=== PATIENT | male | born 1945 | race Caucasian/White ===

== ENCOUNTER → 2018-09-22 09:43 | Outpatient (CLI) | payer MEDICARE, BC, SELFPAY ==
[2018-09-22 11:37] LABS: Add Manual Diff / Slide Review NO; Basophils Percent Auto 0.7 % (0-2); Eosinophils Percent Auto 1.3 % (2-4); Hematocrit 43.7 % (41-53); Hemoglobin 15.1 g/dL (13.5-17.5); Lymphocytes Percent Auto 27.4 % (25-40); Mean Corpuscular HGB Conc 34.6 % (30-36); Mean Corpuscular Hemoglobin 32.1 PG (26-34); Monocytes Percent Auto 7.3 % (3-14); Neutrophils Absolute Auto 4500 /uL (3000-5900); Neutrophils Percent Auto 63.3 % (50-75); Platelet Count 257 X10^3/uL (150-400); Red Cell Distribution Width 13.2 % (11.6-14.8); White Blood Cell Count 7.2 X10^3/uL (4.5-11.0)
[2018-09-22 12:17] LABS: Alanine Aminotransferase 32 IU/L (21-72); Albumin 4.5 g/dL (3.5-5.0); Albumin Globulin Ratio 1.6 (1.0-2.8); Alkaline Phosphatase 54 U/L (38-126); Aspartate Aminotransferase 29 IU/L (17-59); BUN Creatinine Ratio 17.5 (6-22); Bilirubin Total 0.3 mg/dL (0.2-1.3); Blood Urea Nitrogen 14 mg/dL (9-20); Calcium 9.8 mg/dL (8.4-10.2); Carbon Dioxide 32 mmol/L (22-32); Chloride 93 mmol/L (98-107); Cholesterol 149 mg/dL (140-199); Estimated Glomerular Filt Rate > 60.0 mL/min (>60); Globulin 2.9 g/dL (1.7-4.1); Glucose 128 mg/dL (80-110); HDL Cholesterol 54 mg/dL (40-60); HEMOLYSIS < 15 (0-50); LDL Cholesterol Calculated 53 mg/dL (<100); Potassium 4.2 mmol/L (3.4-5.1); Sodium 138 mmol/L (137-145); Total Protein 7.4 g/dL (6.3-8.2); Triglycerides 208 mg/dL (35-150)
[2018-09-22 12:35] LABS: Prostate Specific Antigen 0.345 ng/mL (0.10-4.00)
[2018-09-22 15:20] LABS: Hemoglobin A1C% w Est Avg Glu 6.6 % (4.0-6.0)
== END ==
PROVIDERS: PCP Family Medicine; Visit Provider Family Medicine
DX: E11.9 Type 2 diabetes mellitus without complications (principal); E78.2 Mixed hyperlipidemia; I25.10 Atherosclerotic heart disease of native coronary artery without angina pectoris
CPT/HCPCS: 36415; 80053; 80061; 83036; 84153; 84443; 85025

== ENCOUNTER → 2019-01-03 10:39 | Outpatient (CLI) | payer MEDICARE, BC, SELFPAY ==
[2019-01-03 11:59] LABS: Blood Urea Nitrogen 14 mg/dL (9-20); Calcium 9.9 mg/dL (8.4-10.2); Carbon Dioxide 33 mmol/L (22-32); Chloride 87 mmol/L (98-107); Cholesterol 138 mg/dL (140-199); Estimated Glomerular Filt Rate > 60.0 mL/min (>60); Glucose 111 mg/dL (80-110); HDL Cholesterol 54 mg/dL (40-60); HEMOLYSIS < 15 (0-50); LDL Cholesterol Calculated 49 mg/dL (<100); Potassium 4.8 mmol/L (3.4-5.1); Sodium 130 mmol/L (137-145); Triglycerides 175 mg/dL (35-150)
== END ==
PROVIDERS: Family Provider Family Medicine; PCP Family Medicine; Visit Provider Internal Medicine Cardiovascular Disease
DX: I25.10 Atherosclerotic heart disease of native coronary artery without angina pectoris (principal); I10 Essential (primary) hypertension; E78.5 Hyperlipidemia, unspecified
CPT/HCPCS: 36415; 80048; 80061

== ENCOUNTER → 2019-04-03 10:48 | Outpatient (CLI) | payer MEDICARE, BC, SELFPAY ==
[2019-04-03 12:08] LABS: Add Manual Diff / Slide Review NO; Basophils Absolute Auto 0 /uL (0-100); Basophils Percent Auto 0.5 % (0-2); Eosinophils Absolute Auto 100 /uL (0-450); Eosinophils Percent Auto 1.2 % (2-4); Hematocrit 40.7 % (41-53); Hemoglobin 13.9 g/dL (13.5-17.5); Lymphocytes Absolute Auto 1300 /uL (1100-4500); Lymphocytes Percent Auto 19.8 % (25-40); Mean Corpuscular HGB Conc 34.1 % (30-36); Mean Corpuscular Hemoglobin 31.9 PG (26-34); Mean Corpuscular Volume 93.5 fL (80-100); Monocytes Absolute Auto 500 /uL (0-900); Monocytes Percent Auto 6.9 % (3-14); Neutrophils Absolute Auto 4800 /uL (1500-7000); Neutrophils Percent Auto 71.6 % (50-75); Platelet Count 248 X10^3/uL (150-400); Red Blood Cell Count 4.35 X10^6/uL (4.5-5.9); Red Cell Distribution Width 12.9 % (11.6-14.8); White Blood Cell Count 6.6 X10^3/uL (4.5-11.0)
[2019-04-03 12:25] LABS: Hemoglobin A1C% w Est Avg Glu 6.3 % (4.0-6.0)
[2019-04-03 12:32] LABS: Alanine Aminotransferase 22 IU/L (21-72); Albumin 4.2 g/dL (3.5-5.0); Albumin Globulin Ratio 1.6 (1.0-2.8); Alkaline Phosphatase 53 U/L (38-126); Aspartate Aminotransferase 27 IU/L (17-59); BUN Creatinine Ratio 22.9 (6-22); Bilirubin Total 0.5 mg/dL (0.2-1.3); Blood Urea Nitrogen 16 mg/dL (9-20); Calcium 9.8 mg/dL (8.4-10.2); Carbon Dioxide 35 mmol/L (22-32); Chloride 90 mmol/L (98-107); Cholesterol 124 mg/dL (140-199); Estimated Glomerular Filt Rate > 60.0 mL/min (>60); Globulin 2.7 g/dL (1.7-4.1); Glucose 123 mg/dL (80-110); HDL Cholesterol 43 mg/dL (40-60); HEMOLYSIS < 15 (0-50); LDL Cholesterol Calculated 48 mg/dL (<100); Potassium 4.1 mmol/L (3.4-5.1); Sodium 134 mmol/L (137-145); Total Protein 6.9 g/dL (6.3-8.2); Triglycerides 165 mg/dL (35-150)
[2019-04-03 13:02] LABS: Thyroid Stimulating Hormone 1.59 uIU/mL (0.47-4.68)
[2019-04-03 13:03] LABS: Prostate Specific Antigen Scrn 0.341 ng/mL (0.1-4.0)
== END ==
PROVIDERS: Family Provider Family Medicine; PCP Family Medicine; Visit Provider Family Medicine
DX: E11.9 Type 2 diabetes mellitus without complications (principal); E78.2 Mixed hyperlipidemia; I12.9 Hypertensive chronic kidney disease with stage 1 through stage 4 chronic kidney disease, or unspecified chronic kidney disease; I25.10 Atherosclerotic heart disease of native coronary artery without angina pectoris; N13.8 Other obstructive and reflux uropathy; N40.1 Benign prostatic hyperplasia with lower urinary tract symptoms; Z68.37 Body mass index [BMI] 37.0-37.9, adult; Z12.5 Encounter for screening for malignant neoplasm of prostate
CPT/HCPCS: 36415; 80053; 80061; 83036; 84443; 85025; G0103

== ENCOUNTER → 2019-04-06 10:40 | Outpatient (CLI) | payer MEDICARE, BC, SELFPAY ==
[2019-04-06 12:38] LABS: Microalbumin Urine Random 3.5 mg/dL (0-1.6)
[2019-04-06 12:39] LABS: Creatinine Urine Random 71.3 mg/dL
== END ==
PROVIDERS: PCP Family Medicine; Visit Provider Family Medicine
DX: E11.9 Type 2 diabetes mellitus without complications (principal); E78.2 Mixed hyperlipidemia; I10 Essential (primary) hypertension; I25.10 Atherosclerotic heart disease of native coronary artery without angina pectoris; N13.8 Other obstructive and reflux uropathy; N40.1 Benign prostatic hyperplasia with lower urinary tract symptoms; Z68.37 Body mass index [BMI] 37.0-37.9, adult
CPT/HCPCS: 82043; 82570

== ENCOUNTER → 2019-05-08 14:28 | Outpatient (CLI) | payer MEDICARE, BC, SELFPAY ==
--- NOTE | 2019-05-08 14:32 | DI.RAD.S_ITS ---
PROCEDURE: XR CHEST 2V INDICATIONS: sob TECHNIQUE: 2 views of the chest were acquired. COMPARISON: [facility], CHEST 2 VIEW, 01/15/2014, 13:27. [facility], CHEST 2 VIEW, 11/11/2011, 11:08. FINDINGS: Surgical changes and devices: Prior CABG, previously present sternotomy wires.. Lungs and pleura: Lungs are clear. No pleural effusions or pneumothorax. Mediastinum: Mediastinal contours are normal. Heart size is normal. Bones and chest wall: No suspicious bony abnormalities. Soft tissues appear unremarkable. IMPRESSION: Reduced inspiratory volume, prior CABG, source of shortness of breath is not found. Dictated by: Omero Higginbotham M.D. on 05/08/2019 at 15:20 Approved by: Omero Higginbotham M.D. on 05/08/2019 at 15:20
[2019-05-08 15:46] LABS: Add Manual Diff / Slide Review NO; Basophils Absolute Auto 0 /uL (0-100); Basophils Percent Auto 0.4 % (0-2); Eosinophils Absolute Auto 100 /uL (0-450); Eosinophils Percent Auto 0.9 % (2-4); Hematocrit 38.9 % (41-53); Hemoglobin 13.3 g/dL (13.5-17.5); Lymphocytes Absolute Auto 1500 /uL (1100-4500); Lymphocytes Percent Auto 20.6 % (25-40); Mean Corpuscular HGB Conc 34.2 % (30-36); Mean Corpuscular Hemoglobin 31.9 PG (26-34); Mean Corpuscular Volume 93.4 fL (80-100); Monocytes Absolute Auto 600 /uL (0-900); Monocytes Percent Auto 7.9 % (3-14); Neutrophils Absolute Auto 5100 /uL (1500-7000); Neutrophils Percent Auto 70.2 % (50-75); Platelet Count 257 X10^3/uL (150-400); Red Blood Cell Count 4.17 X10^6/uL (4.5-5.9); White Blood Cell Count 7.2 X10^3/uL (4.5-11.0)
[2019-05-08 16:09] LABS: B Type Natriuretic Peptide < 100 (<100)
[2019-05-08 17:41] LABS: BUN Creatinine Ratio 28.3 (6-22); Blood Urea Nitrogen 17 mg/dL (9-20); Calcium 9.7 mg/dL (8.4-10.2); Carbon Dioxide 35 mmol/L (22-32); Chloride 91 mmol/L (98-107); Estimated Glomerular Filt Rate > 60.0 mL/min (>60); Glucose 119 mg/dL (80-110); HEMOLYSIS < 15 (0-50); Magnesium 1.5 mg/dL (1.6-2.3); Potassium 4.5 mmol/L (3.4-5.1); Sodium 133 mmol/L (137-145)
== END ==
PROVIDERS: PCP Family Medicine; Visit Provider Family Medicine
DX: I25.10 Atherosclerotic heart disease of native coronary artery without angina pectoris (principal); R06.02 Shortness of breath; E11.9 Type 2 diabetes mellitus without complications; E78.5 Hyperlipidemia, unspecified; Z95.1 Presence of aortocoronary bypass graft
CPT/HCPCS: 36415; 71046; 80048; 83036; 83735; 83880; 85025

== ENCOUNTER → 2019-06-14 14:26 | Outpatient (CLI) | payer MEDICARE, BC, SELFPAY ==
--- NOTE | 2019-06-14 14:29 | DI.ECHO.S_ITS ---
[facility] +---------+ : : [address] : : [address] : : : : [place], : : : : [place] [id number] : : : : Phone: [phone] + [facility]-[id number] Echocardiogram Report + + :Name: MAGDIEL WILKS Study Date: 06/14/2019 Height: 70 in : :[facility] Weight: 238 lb : : Gender: Male BSA: 2.2 m2 : :: 1945 Age: 73 yrs BP: 120/68 mmHg: :Reason For Study: DYSPNEA : :Ordering Physician: Dr. Montoya : :[place]on Performed By: Lela Bradley : :Referring: TEJINDER OSEGUERA : + + Interpretation Summary The left ventricle is normal in size. The left ventricular ejection fraction is normal. The ejection fraction is estimated to be 60-65%. There are no obvious focal wall motion abnormalities noted but poor endocardial definition reduces the sensitivity for the detection of such. Diastolic parameters suggest a relaxation abnormality of the left ventricle, consistent with probable normal filling pressures. The right ventricle is not well visualized. The right ventricle grossly appears normal in size with probable normal systolic function. Pulmonary artery pressures cannot be estimated because of the lack of a measurable TR jet velocity. The left atrial size is normal. There is no significant valvular heart disease. The aortic root is mildly dilated. Procedure: A two-dimensional transthoracic echocardiogram with color flow and Doppler was performed. The study quality was technically difficult. Couldnt get IV attempted x2. Pt sitting up right . The patient was in normal sinus rhythm during the exam. Left Ventricle: The left ventricle is normal in size. There is normal left ventricular wall thickness. The left ventricular ejection fraction is normal. The ejection fraction is estimated to be 60-65%. There are no obvious focal wall motion abnormalities noted but poor endocardial definition reduces the sensitivity for the detection of such. Diastolic parameters suggest a relaxation abnormality of the left ventricle, consistent with probable normal filling pressures. Right Ventricle: The right ventricle is not well visualized. The right ventricle grossly appears normal in size with probable normal systolic function. Atria: The left atrial size is normal. Right atrium not well visualized secondary to technical limitations. There is no Doppler evidence for an interatrial shunt. Mitral Valve: The mitral valve leaflets appear mildly thickened, but open well. There is mild mitral annular calcification. There is trace mitral regurgitation. Aortic Valve: The aortic valve is normal in structure and function. No aortic regurgitation is present. Tricuspid Valve: There is a trace or physiologic amount of tricuspid regurgitation. Pulmonary artery pressures cannot be estimated because of the lack of a measurable TR jet velocity. Pulmonic Valve: The pulmonic valve is not well visualized. There is no significant valvular heart disease. Great Vessels: The aortic root is mildly dilated. The ascending aorta is normal in size. The aortic arch could not be visualized. The pulmonary is not well visualized. The inferior vena cava was not visualized. Pericardium/ Pleura There is no pericardial effusion. There is no pleural effusion. MMode/2D Measurements & Calculations LVIDd: 5.0 cm LVOT diam: 2.5 cm LVIDs: 3.3 cm Ao root diam: 4.1 cm IVSd: 0.93 cm asc Aorta Diam: 3.3 cm LVPWd: 0.89 cm LV hunt. diameter/BSA (cm/m^2): 2.2 LV sys. diameter/BSA (cm/m^2): 1.5 FS: 34.0 % LA A2 area: 19.2 cm2 TAPSE: 1.3 cm LA A4 area: 23.2 cm2 LA length (vol): 5.9 cm LA vol: 64.5 ml LA vol index: 28.7 ml/m2 Doppler Measurements & Calculations Ao V2 max: 105.6 cm/sec LVOT Max Shay: 61.0 cm/sec Ao V2 mean: 76.5 cm/sec LV V1 max P.5 mmHg Ao V2 VTI: 23.3 cm LV V1 VTI: 14.2 cm Ao max P.5 mmHg Ao mean P.6 mmHg JULY(I,D): 3.0 cm2 MV E max shay: 68.4 cm/sec JULY(V,D): 2.8 cm2 MV A max shay: 86.3 cm/sec JULY indexed to BSA (cm^2/m^2): 1.3 MV E/A: 0.79 sev ratio: 0.61 Med Peak E' Shay: 5.7 cm/sec E/E' med: 12.1 Lat Peak E' Shay: 7.7 cm/sec E/E' lat: 8.9 E/e' average: 10.5 MV P1/2t: 84.1 msec PA V2 max: 72.8 cm/sec MVA(P1/2t): 2.6 cm2 PA V2 mean: 47.7 cm/sec PA mean P.0 mmHg PA Accel Time: 0.06 sec SV(LVOT): 69.8 ml Reading Physician:04:53 PM
== END ==
PROVIDERS: PCP Family Medicine; Visit Provider Family Medicine
DX: R06.00 Dyspnea, unspecified (principal)
CPT/HCPCS: 93306

== ENCOUNTER → 2019-07-10 15:38 | Outpatient (CLI) | payer MEDICARE, BC, SELFPAY ==
--- NOTE | 2019-07-10 15:41 | DI.RAD.S_ITS ---
PROCEDURE: XR CERVICAL SPINE 2V OR 3V INDICATIONS: pain TECHNIQUE: 4 view(s) of the cervical spine were acquired. COMPARISON: None. FINDINGS: Bones: No fractures or dislocations to the T1 level. The lateral masses of C1 appear intact on the odontoid view. No suspicious bony lesions. Degenerative disc disease along the cervical spine is moderately severe the patient is flexed forward, to the degree that normal odontoid visualization on the frontal projection was not possible. Degenerative disc disease is moderately severe to severe at C5-6 and C6-7. Soft tissues: No prevertebral soft tissue swelling. IMPRESSION: The degenerative changes are considered near severe from C5-6 through the cervical thoracic junction. There is a relatively fixed flexion deformity along the cervical spine associated with disc degeneration, most prominent at and below the C4-5 level. The degenerative changes and flexion deformity disallows clear visualization of the base of the dens and depending on the clinical status followup by a dedicated CT or MR cervical scan in may be warranted. Dictated by: Omero Higginbotham M.D. on 07/10/2019 at 16:38 Approved by: Omero Higginbotham M.D. on 07/10/2019 at 16:40
== END ==
PROVIDERS: PCP Family Medicine; Visit Provider Family Medicine
DX: M54.2 Cervicalgia (principal); Z98.890 Other specified postprocedural states
CPT/HCPCS: 72040

== ENCOUNTER → 2019-07-15 09:23 | Outpatient (CLI) | payer MEDICARE, BC, SELFPAY ==
--- NOTE | 2019-07-15 09:27 | DI.MRI.S_ITS ---
PROCEDURE: MR CERVICAL SPINE WO CON INDICATIONS: cervical pain TECHNIQUE: Noncontrast sagittal T1 spin echo and T2 fast spin echo, sagittal STIR, foraminal oblique sagittal T2 fast spin echo, and axial gradient echo or T2 fast spin echo through the cervical spine. COMPARISON: None. FINDINGS: Image quality: Degraded by motion artifact and body habitus. Alignment and Curvature: There is normal bony alignment. Bone Marrow: Marrow demonstrates normal overall signal. Spinal Cord: Visualized spinal cord has normal size and signal. No cerebellar tonsillar herniation. Paraspinous Soft Tissues: No paravertebral masses. Prevertebral soft tissues are normal in thickness. C2-C3: Mild diffuse disc bulge. Bilateral facet hypertrophy. Mild canal stenosis. Mild bilateral foraminal stenosis. C3-C4: Congenital canal stenosis. Mild diffuse disc bulge. Bilateral facet hypertrophy. Moderate to severe canal stenosis. Possible mild cord flattening. Moderate to severe right and moderate left foraminal stenosis. C4-C5: Congenital canal stenosis. Moderate disc desiccation. Mild diffuse disc bulge. Bilateral facet hypertrophy. Bilateral facet and uncovertebral hypertrophy. Moderate to severe canal stenosis. Possible mild cord flattening. Moderate bilateral foraminal stenosis. C5-C6: Congenital canal stenosis. Moderate disc height loss and desiccation. Moderate diffuse disc bulge with superimposed right posterolateral protrusion. Moderate facet and uncovertebral hypertrophy bilaterally. Severe canal stenosis. Moderate cord flattening. Removal severe bilateral foraminal stenosis with bilateral C6 nerve root compression. C6-C7: Congenital canal stenosis. Moderate disc height loss and desiccation. Moderate diffuse disc bulge. Mild facet and uncovertebral hypertrophy bilaterally. Moderate to severe canal stenosis. Possible mild cord flattening. Mild bilateral foraminal stenosis. C7-T1: Congenital canal stenosis. Moderate disc desiccation. Mild diffuse disc bulge. Mild facet and uncovertebral hypertrophy bilaterally. Mild canal stenosis. Mild bilateral foraminal stenosis. IMPRESSION: 1. Limited examination demonstrating diffuse congenital canal stenosis, with superimposed disc and facet disease, as well as uncovertebral hypertrophy. 2. Multilevel canal stenoses, worst at C5-C6, where there is moderate cord flattening. Possible cord flattening is also seen at C3-C4, C4-C5, and C6-C7. 3. Multilevel foraminal stenoses, worst at C5-C6, where there is associated bilateral C6 nerve root compression. Recommend correlation with clinical symptoms to ascertain relevance of this finding. Dictated by: Feliciano Rogers M.D. on 07/18/2019 at 16:02 Approved by: Feliciano Rogers M.D. on 07/18/2019 at 16:09
== END ==
PROVIDERS: PCP Family Medicine; Visit Provider Family Medicine
DX: M54.2 Cervicalgia (principal); M48.02 Spinal stenosis, cervical region
CPT/HCPCS: 72141

== ENCOUNTER → 2019-07-24 12:32 | Outpatient (CLI) | payer MEDICARE, BC, SELFPAY ==
[2019-07-24 14:49] LABS: Blood Urea Nitrogen 21 mg/dL (9-20); Carbon Dioxide 32 mmol/L (22-32); Chloride 87 mmol/L (98-107); Estimated Glomerular Filt Rate > 60.0 mL/min (>60); Glucose 154 mg/dL (80-110); HEMOLYSIS < 15 (0-50); Potassium 4.5 mmol/L (3.4-5.1); Sodium 132 mmol/L (137-145)
[2019-07-24 16:51] LABS: Hemoglobin A1C% w Est Avg Glu 5.8 % (4.0-6.0)
== END ==
PROVIDERS: PCP Family Medicine; Visit Provider Family Medicine
DX: E11.9 Type 2 diabetes mellitus without complications (principal)
CPT/HCPCS: 36415; 80048; 83036

== ENCOUNTER → 2019-08-21 15:18 | Outpatient (CLI) | payer MEDICARE, BC, SELFPAY ==
[2019-08-21 16:21] LABS: Hemoglobin A1C% w Est Avg Glu 5.8 % (4.0-6.0)
[2019-08-21 16:40] LABS: BUN Creatinine Ratio 23.8 (6-22); Blood Urea Nitrogen 19 mg/dL (9-20); Estimated Glomerular Filt Rate > 60.0 mL/min (>60)
== END ==
PROVIDERS: PCP Family Medicine; Visit Provider Family Medicine
DX: E11.9 Type 2 diabetes mellitus without complications (principal)
CPT/HCPCS: 36415; 82565; 83036; 84520

== ENCOUNTER → 2019-08-24 12:49 | Outpatient (CLI) | payer MEDICARE, BC, SELFPAY ==
--- NOTE | 2019-08-24 | DI.CT.S_ITS ---
PROCEDURE: CT CERVICAL SPINE WO CON INDICATIONS: Other cervical disc displacement TECHNIQUE: Noncontrast 3 mm thick sections acquired from the skull base to the T4 level. Sagittal and coronal reformats were then constructed. For radiation dose reduction, the following was used: automated exposure control, adjustment of mA and/or kV according to patient size. COMPARISON: [facility], MR, MR CERVICAL SPINE WO CON, 07/15/2019, 9:37. [facility], CR, XR CERVICAL SPINE 2V OR 3V, 07/10/2019, 15:43. FINDINGS: Image quality: This examination is limited by involuntary motion artifact. Bones: No fractures or dislocations are seen to the limits of this study with motion artifact. Visualized superior ribs are intact. There is moderate to severe disc space narrowing seen at C5-C6 and C6-C7. Endplate irregularity and sclerosis are seen at these levels, with posterior directed endplate osteophytes. Relatively prominent uncovertebral joint degenerative change can be seen at C5-C6. Soft tissues: Prevertebral soft tissues are normal in thickness. No paravertebral hematomas. No apical pneumothoraces. IMPRESSION: Limited examination demonstrating degenerative changes, which are most prominent inferiorly. Dictated by: Ced Talbot M.D. on 08/24/2019 at 14:11 Approved by: Ced Talbot M.D. on 08/24/2019 at 14:17
== END ==
PROVIDERS: Family Provider Family Medicine; PCP Family Medicine; Visit Provider Orthopaedic Surgery
DX: M50.20 Other cervical disc displacement, unspecified cervical region (principal); M47.812 Spondylosis without myelopathy or radiculopathy, cervical region
CPT/HCPCS: 72125

== ENCOUNTER → 2019-10-09 11:41 | Outpatient (CLI) | payer MEDICARE, BC, SELFPAY | PROVIDERS: Family Provider Family Medicine; PCP Family Medicine; Visit Provider Family Medicine | DX: S31.809A Unspecified open wound of unspecified buttock, initial encounter (principal) | CPT/HCPCS: 87070; 87075; 87077; 87147; 87205 ==

== ENCOUNTER 2019-11-23 10:03 | Inpatient (IN) | payer MEDICARE, BC, SELFPAY ==
[2019-11-14 11:35] VITALS: BMI 29.8
[2019-11-23] VITALS (14 sets, daily range): BP systolic 132–167; BP diastolic 72–85; PULSE 11–117; RESP 10–24; TEMP 36.1–36.6; O2SAT 94–98; BMI 28.3
--- NOTE | 2019-11-23 | DI.RAD.S_ITS ---
PROCEDURE: XR CERVICAL SPINE 2V OR 3V INDICATIONS: C5-6, C6-7 ANTERIOR DISC. TECHNIQUE: 2 view(s) of the cervical spine were acquired. COMPARISON: [facility], , XR CERVICAL SPINE 2V OR 3V, 07/10/2019, 15:43. FINDINGS: 2 intraoperative fluoroscopy images demonstrate discectomy and anterior fusion at C5-C6 and C6-C7. IMPRESSION: Discectomy and anterior fusion at C5-C6 and C6-C7. Dictated by: David Lisa M.D. on 11/23/2019 at 20:50 Approved by: David Lisa M.D. on 11/23/2019 at 20:51
[2019-11-23] MEDS: ACETAMINOPHEN 325 MG TABLET 975 MG PO (10:54)
[2019-11-23] MEDS: CELECOXIB 200 MG CAPSULE 400 MG PO ×2 (10:55→18:13)
[2019-11-23] MEDS: GABAPENTIN 300 MG CAPSULE PO (10:55)
[2019-11-23] MEDS: LACTATED RINGERS 1,000 ML 42 ML IV ×2 (10:56→16:45)
--- NOTE | 2019-11-23 13:44 | SUR.PREOP ---
pt transferred to hospital bed for comfort, pt and informed of delay in surgery.
--- NOTE | 2019-11-23 14:10 | PM.PREOP ---
Pre-operative Note Interval Note History & Physical reviewed/Exam performed by Physician: Yes Changes to H&P: No
[2019-11-23] MEDS: CEFAZOLIN 2 GM/100 ML FROZ.PIGGY IV ×2 (14:45→22:22)
[2019-11-23] MEDS: THROMBIN (RECOMBINANT) 5,000 UNIT VIAL 5000 UNIT TOP (15:26)
[2019-11-23] MEDS: SODIUM CHLORIDE 0.9% 1,000 ML, GENTAMICIN 80 MG IRR (15:27)
[2019-11-23] MEDS: BUPIVACAINE 0.25% W/ EPI (PF) 10 ML VIAL 60 ML INJ (15:27)
--- NOTE | 2019-11-23 15:29 | SUR.OPER ---
Supine, head on gel donut. Arms padded with gel pads, tucked at sides, towel roll under shoulders. Safety belt at thigh. Legs uncrossed.
--- NOTE | 2019-11-23 16:22 | PM.OP.1 ---
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 They had failed conservative management and requested operative intervention. Risks and benefits of surgery were discussed and appropriate consents were obtained. Surgeon: Kehinde Caruso Business Intelligence Engineer: Nick Gtz Anesthesia Type: General Operative Notes Findings: None Closure Type: primary Specimen(s): none sent Prosthetic devices, grafts, tissues, transplants, or devices: Cathy RHETT-C Estimated Blood Loss (mL): 10 Blood products transfused: none Procedure in detail: Patient was brought to the operating room and intubated on the table. A time-out was performed. Preoperative antibiotics were given. The neck was prepped and draped in the standard sterile fashion. Using a skin fold, we made a 3 cm oblique incision on the left side. We used Bovie to go through the platysma and then did a standard anterolateral blunt dissection down to the precervical fascia. Fascia was nicked and elevated up. A marker was placed and x-ray was taken for localization. We then subperiosteally elevated up the longus colli muscles. Self-retaining retractors were placed. Avenue pins were placed. We then brought in the microscope. A scalpel used to perform an annulotomy. We then used a combination of pituitaries and curettes and Kerrison to perform a complete anterior diskectomy at C6-7. We used the bur to take down the posterior osteophytes. We took down the PLL and used Kerrison to remove any posterior disc material and osteophytes. At the end we could from the nerve hook cephalad caudally and out the foramen and everything was opened. A small stab incision was made over the left anterior iliac crest. A Jamshidi needle was advanced into the pelvis and 2 mL of bone marrow was aspirated. We then used the trials. We then packed a 14 x 17 x6 mm RHETT-C cage with Primagen bone graft and the iliac crest harvest. The cage was placed under fluoroscopic guidance. We then placed our two locking plates. This completed the ACDF at C6-7. The self-retaining retractors and Avenue pins were moved up to the next level. We then performed an annulotomy, complete diskectomy, and took down the PLL at C5-6. Kerrisons were used to remove the posterior osteophytes. In the end we could sweep the nerve hook easily back and forth with out any further pressure. We then trialed and placed another 14 x 17 x 6 mm RHETT-C cage with bone graft at C5-6. We placed our 2 locking plates. This completed the ACDF at C5-6. The retractors removed and final x-rays were taken. The wound was irrigated. There was no bleeding. The carotid was beating nicely. The platysma was closed. The superficial was closed. The skin was closed. A sterile dressing was placed. They were then extubated and brought to recovery room with no complications. Complications: none Post-operative Condition: stable Disposition: PACU Plan for aftercare: Inpatient. Up with PT. Probable discharge tomorrow.
[2019-11-23] MEDS: OXYCODONE IR 5 MG TABLET 10 MG PO (17:57)
[2019-11-23] MEDS: DEXAMETHASONE 4 MG/ML VIAL IV (18:12)
[2019-11-23] MEDS: HYDROMORPHONE 1 MG INJ 0.5 MG IV ×2 (18:12→20:09)
[2019-11-23] MEDS: ACETAMINOPHEN 325 MG TABLET 650 MG PO (18:14)
[2019-11-23] MEDS: LACTATED RINGERS 1,000 ML 125 ML IV (18:14)
[2019-11-23] MEDS: FLUTICASONE/SALMETEROL 250/50 60 PUFF DISKUS INH (19:52)
[2019-11-23] MEDS: ATORVASTATIN 20 MG TABLET PO (20:35)
[2019-11-23] MEDS: HYDRALAZINE 25 MG TABLET PO (20:36)
[2019-11-23] MEDS: SENNOSIDES 8.6 MG TABLET 17.2 MG PO (20:36)
[2019-11-23] MEDS: LOSARTAN 50 MG TABLET PO (20:36)
[2019-11-23] MEDS: DOCUSATE 100 MG CAPSULE PO (20:37)
[2019-11-23] MEDS: METFORMIN HCL 500 MG TABLET 1000 MG PO (20:37)
[2019-11-23] MEDS: carBAMazepine XR 100 MG TAB 200 MG PO (20:38)
[2019-11-23] MEDS: carvediloL 25 MG TABLET PO (20:43)
--- NOTE | 2019-11-23 22:51 | PC.NURSE ---
Admission/Evening Shift Note- Patient arrived to room via bed from pacu. Oriented patient to bed and bed controls, room,lights, menu, phone, and call harding/tv remote. Admit questions done, home medications reviewed, and physical assessment competed. PRN pain medications given as ordered per patient request. Patient tolerated with no s/s of ASE noted. safety measures in place. bed alarm activated. call harding and phone within reach. will continue to monitor.
[2019-11-24] VITALS: BP 156/77; PULSE 115; RESP 18; TEMP 36.3; O2SAT 96
[2019-11-24] MEDS: ACETAMINOPHEN 325 MG TABLET 650 MG PO ×2 (00:13→08:20)
[2019-11-24] MEDS: HYDROMORPHONE 1 MG INJ 0.5 MG IV (00:14)
[2019-11-24] MEDS: LACTATED RINGERS 1,000 ML 125 ML IV (00:15)
[2019-11-24] MEDS: DEXAMETHASONE 4 MG/ML VIAL IV ×3 (00:17→10:53)
[2019-11-24 05:55] VITALS: BP 161/90; PULSE 114; RESP 16; TEMP 36.4; O2SAT 95
--- NOTE | 2019-11-24 06:24 | PC.NURSE ---
Pt POD 1 post surgical repair of cervical stenosis C5-7 with cage. Anterior neck dressing intact, drainage present but not saturated. Borders marked at MN, drainage did not exceed borders. Pt wearing soft collar. Following activity precautions. Pain 7/10x1, admin IV dilaudid at 0100, tylenol given at that time. Pt had no further complaints of acute pain. NTG patch will be placed at 0700. Denies chest pain during night, denies SOB at rest. Currently sitting in chair with chair alarm on. Supportive at bedside
[2019-11-24] MEDS: CEFAZOLIN 2 GM/100 ML FROZ.PIGGY IV (06:42)
--- NOTE | 2019-11-24 06:49 | P.PN_ITS ---
Subjective Subjective Date Patient Seen: 11/24/19 Time Patient Seen: 06:49 Interval history: Doing well, minimal pain after his meds. Swallowing better sitting up (not really changed since preop, but not worse). Able to swallow pills and water without difficulty. Exam Vital Signs (past 8 hours): - 11/24/19 00:00 11/24/19 05:55 Temperature 97.4 F L 97.5 F L Pulse Rate 115 H 114 H Respiratory Rate 18 16 Blood Pressure 156/77 H 161/90 H Pulse Oximetry 96 95 Oxygen Delivery Method Nasal Cannula Oxygen Flow Rate 0 Const Orientation: alert and oriented x3 Back/Spine/Pelvis Other: mod dry drainage, mild swelling on left side of neck. 5/5 motor BUE except 4/5 B int/online producer Assessment & Plan Post-op Postoperative Procedures: Procedures Operation Date: 11/23/19 12:15 Actual Procedures Side Surgeon p C5-6 & C6-7 anterior discectomy and instru fusion w/bone graft Kehinde Caruso MD He has some swelling, but no sign of bleeding (only dry on dressing). He still has difficulty with swallowing and loud breathing (unchanged since preop). He feels good and wants to go home. Up with PT, then plan for discharge. I will send him home with prednisone as well for the swelling. Quality VTE Deep Vein Thrombosis/Pulmonary Embolism Present on Admission: No
[2019-11-24 08:00] VITALS: BP 154/82; PULSE 109; RESP 20; TEMP 36.7; O2SAT 96
[2019-11-24] MEDS: carBAMazepine XR 100 MG TAB 200 MG PO (08:18)
[2019-11-24] MEDS: AMITRIPTYLINE 25 MG TABLET 50 MG PO (08:18)
[2019-11-24] MEDS: LOSARTAN 50 MG TABLET PO (08:19)
[2019-11-24] MEDS: ASPIRIN EC 81 MG TABLET PO (08:19)
[2019-11-24] MEDS: DOXAZOSIN 4 MG TABLET 8 MG PO (08:19)
[2019-11-24] MEDS: glipiZIDE 5 MG TABLET PO (08:19)
[2019-11-24] MEDS: CELECOXIB 200 MG CAPSULE PO (08:19)
[2019-11-24] MEDS: FINASTERIDE 5 MG TABLET PO (08:19)
[2019-11-24] MEDS: ASCORBIC ACID 500 MG TABLET 1000 MG PO (08:20)
[2019-11-24] MEDS: AMLODIPINE 5 MG TABLET PO (08:20)
[2019-11-24] MEDS: DOCUSATE 100 MG CAPSULE PO (08:20)
[2019-11-24] MEDS: hydroCHLOROthiazide 25 MG TABLET PO (08:20)
[2019-11-24] MEDS: CITALOPRAM 20 MG TABLET PO (08:20)
[2019-11-24] MEDS: LORATADINE 10 MG TABLET PO (08:20)
[2019-11-24] MEDS: METFORMIN HCL 500 MG TABLET 1000 MG PO (08:20)
[2019-11-24] MEDS: NITROGLYCERIN 0.4 MG PATCH TOP (08:21)
[2019-11-24] MEDS: carvediloL 25 MG TABLET PO (08:24)
[2019-11-24] MEDS: HYDRALAZINE 25 MG TABLET PO (08:25)
[2019-11-24] MEDS: FLUTICASONE/SALMETEROL 250/50 60 PUFF DISKUS INH (08:40)
[2019-11-24 08:41] VITALS: PULSE 76; RESP 12; O2SAT 96
--- NOTE | 2019-11-24 10:02 | OT.IP.TRT ---
Current Diagnoses Disease of spinal cord, unspecified (11/23/19) Other cervical disc displacement, unspecified cervical region (11/23/19) Surgery Performed Operation Date: 11/23/19 12:15 Actual Procedures p C5-6 & C6-7 anterior discectomy and instru fusion w/bone graft - Kehinde Caruso MD Occupational Therapy Treatment Note M3 OT- IP Subjective and Pain Start: 11/24/19 10:21 Freq: Status: Active Protocol: Document 11/24/19: [facility] (Rec: 11/24/19 10:31 [facility] [id number]) OT- Subjective Occupational Therapy Visit Type Type Treatment Note Visit Start Time 10:02 Visit Stop Time 10:11 Total Visit Minutes 9 Occupational Therapy Visit Comments Patient Comments Pt already saw PT, present in the room and feels capable to assist pt for all needs. Able to go over soft collar management and ADl needs. Therefore just OT treatment completed. Patient/Caregiver Goals To go home. OT Pain Assessment Pain When Pain Assessed At Rest Pain Present Pain Present Denied Pain M4 OT- IP ADL's Start: 11/24/19 10:21 Freq: Status: Active Protocol: Document 11/24/19: [facility] (Rec: 11/24/19 10:31 [facility] [id number]) OT [id number] Comments OT Self-Feeding Comments Pt able to bring cup to his mouth and noted wet voice afterwards and coughing. Notified FREELANCE RECRUITER, FREELANCE RECRUITER to come and screen the pt. Gave pt's swallowing information after ACDF sx encourage softer foods , smaller bites, and sit upright. OT ADL-Dressing Comments OT Dressing Comments Pt's assist with LB dressing needs especially for compression stocking. M6 OT- IP Functional Cognition Start: 11/24/19 10:21 Freq: Status: Active Protocol: Document 11/24/19 10:22 [facility] (Rec: 11/24/19 10:31 [facility] [id number]) Cognitive Factors Limiting Selfcare Function Cognitive Ability Level of Alertness Alert Patient Orientation Name Attention Span Ability Capable of Focused Attention, Capable of Sustained Attention Ability to Follow Commands Able to Follow One Step Commands with Increased Time, Able to Follow One Step Commands with Repetition Memory Description Short Term Impaired Cognitive Comments Cognitive Assessment Comments Pt looks to his to answer his questions and talk for him during OT treatment. Pt is insistent on trying to go home and forgetting that he has to wait to get the IV out until just prior to leaving. Per pt has a structure routine that they follow at home. M9 OT- IP Assessment and Plan Start: 11/24/19 10:21 Freq: Status: Active Protocol: Document 11/24/19 10:22 [facility] (Rec: 11/24/19 10:31 [facility] [id number]) OT Summary Assessment and Plan Potential Rehabilitation Potential Good Analytic Complexity at Evaluation Low Summary OT Impairments Functional Cognition,Self- Feeding,Dressing,Toileting, Bathing Progress Towards Goals Progressing Toward Goals,Slow Progress due to Cognition Assessment Summary Pt low complexity and has a supportive to assist for all needs at home. Pt noted wet voice after drinking water , notified FREELANCE RECRUITER so able to do a swallow screen. Pt's has good understanding to be able to assist pt for all needs of Adl and functional mobility needs. Goals Patient/Caregiver Education Goal Caregiver Independent Assisting Patient Days to Meet Goals 1 Frequency of Treatment Frequency Of Treatment Once a Day Treatment Plan OT Treatment Plan ADL Training,Functional Cognition Training,Functional Mobility,Patient/Family Education,Discharge Planning Other Treatment Recommendations and Next If still here shower. Treatment Focus Discharge Recommendations OT Discharge Recommendations Home with 07/06 Assist
--- NOTE | 2019-11-24 10:22 | PC.NURSE ---
Patient is alert and oriented x3, dressing to anterior neck with some shadow drainage. Soft collar is in place for comfort. Pt is a sba when ambulating, he is steady. Took all morning meds and pt is sitting up in his chair. He has a raspy voice but states that he was having some problems with this before surgery. Patient also has various bruising to his arms and a skin tear. He will be discharging home around 1130 today after his last dose of decadron.
--- NOTE | 2019-11-24 10:50 | ST.IPSCREEN ---
Swallow screen performed per ACDF protocol. Patient experiencing wet vocal quality following sips of water, requiring 2-3 swallows to fully clear. Discussed recommendations for soft diet, small sips of liquids at this time advancing as tolerated. Patient also noted to have difficulty coordinating phonation with respiration, only able to get one word out per breath and making his speech difficult to understand. His reports this was going on prior to the surgery and has seemed to improve slightly since surgery. Recommend patient notify his doctor at time of follow-up appointment if dysphagia or dysphonia persist.
--- NOTE | 2019-11-24 10:58 | PT.IIE ---
Current Diagnoses Disease of spinal cord, unspecified (11/23/19) Other cervical disc displacement, unspecified cervical region (11/23/19) Surgery Performed Operation Date: 11/23/19 12:15 Actual Procedures p C5-6 & C6-7 anterior discectomy and instru fusion w/bone graft - Kehinde Caruso MD Surgical History (Last Updated 11/14/19 @ 12:19 by Phoebe Chacko RN) Anesthesia (Resolved) Hx of arthroscopy of left knee (Acute) S/P CABG x 2 (Acute 06/29/02) Status post cholecystectomy (~1984) Status post hemorrhoidectomy (~1994) Status post laminectomy (~2015) Medical History (Last Updated 11/14/19 @ 12:49 by Phoebe Chacko RN) Carpal tunnel syndrome (Chronic ~1982) Chicken pox (Resolved) Chronic back pain (Chronic ~2014) Coronary artery disease (Chronic ~2001) Diabetes mellitus (Chronic ~1997) Gout (Chronic) Hearing loss (Chronic) Hemorrhoid (Chronic) Kidney stones (Chronic) Peripheral vascular disease (Chronic ~1989) Precancerous skin lesion (Chronic) Rheumatoid arthritis (Chronic) Shoulder pain (Chronic) Sleep apnea (Chronic ~1989) Tinnitus (Chronic) Vertigo (Chronic ~2011) Physical Therapy Inpatient Evaluation/Re-Eval M1 PT/OT-IP Prior Functional Status Start: 11/24/19 10:21 Freq: NEEDED Status: Active Protocol: Document 11/24/19 09:15 (Rec: 11/24/19 10:58 [id number]) Medical Review Prior Functional Status Medical History Reviewed Yes Communication AKIACHAK at baseline. Spouse stated pt had difficulty find words, along with lower voice and hoarse sound prior to sx. He also has short term memory deficits. Mobility and Gait Pt uses unilateral hiking stick for mobility at all time . Spouse noted pt has decreased balance since last year but did not have a fall. Pt also tends to lean forward while sitting and ambulating due to chronic [employer]IDE [employer] WORK and LBP. She also stated pt started to have a L foot drop since his back sx from 2016 but able to amb independently. Activities of Daily Living and IADL's Independent for ADLs and IADLs with a hiking stick. Able to drive. Social History Household Members spouse Living Arrangements House Number of Floors (Floors) One Floor Number of Stairs To Enter/Railing? 1 GERARDO from garage and use door on the left and hiking stick for support Home Environment Standard Height Toilet,Walk in Shower,Built-In Shower Seat Home Equipment Front Wheel Walker,Straight Cane,Hand Held Shower,Grab Bars In Shower Employment Status Retired Additional Social History Comment Pt lives with his spouse and a dog in [facility] with good supportive neighbours that could assist as needed. Pt had a back sx in Dec 26, 2015. Spouse stated pt also sleeps in his recliner d/t difficulty in breathing at supine position. M2 PT-IP Current Condition Start: 11/24/19 08:13 Freq: NEEDED Status: Active Protocol: Document 11/24/19 09:15 HH (Rec: 11/24/19 10:58 [email or web address]) Physical Therapy Current Condition Current Condition Evaluation Date 11/24/19 Treatment Diagnosis C5-7 ACDF, difficulty in walking Onset Date 11/23/19 Precautions Cervical Spine Precautions Soft Collar for Comfort,No Heavy Lifting,Log Roll Weight Bearing Status Weight Bearing Status Full Weight Bearing M3 PT-IP Subjective Start: 11/24/19 08:13 Freq: NEEDED Status: Active Protocol: Document 11/24/19 09:15 HH (Rec: 11/24/19 10:58 [email or web address]) Subjective Physical Therapy Visit Type Type Initial Evaluation Visit Start Time 09:15 Visit Stop Time 09:45 Total Visit Minutes 30 Notes pt's spouse attended session. He has a raspy voice but states that he was having some problems with this before surgery. Patient also has various bruising to his arms and a skin tear Number of DEBT AND BUDGET COUNSELOR Visits 0 Physical Therapy Visit Comments Patient Comments I want to go home. Patient Goals TO return home with spouse. Therapy Pain Assessment Pain When Pain Assessed During Exercise Pain Present Pain Present Pain Reported Location Anterior Neck Intensity 3 Scale Used Numeric (1 - 10) Description Aching,Dull Pain Management Techniques Timing of Activity with Medications M4 PT-IP Mobility and Gait Start: 11/24/19 08:13 Freq: NEEDED Status: Active Protocol: Document 11/24/19 09:15 HH (Rec: 11/24/19 10:58 [email or web address]) PT-Transfer Assessment Sit to and From Stand Sit to and from Stand Contact Guard Assistance,Use of Upper Extremities Equipment Transfer Assistive Device Gait Belt,Front Wheeled Walker Orthotic/Prosthetic Devices or Brace: Yes Transfers Transfer Destination Bed,Chair,Toilet Transfer Technique amb with FWW Transfer Ability Level of Assist Standby Assistance,Contact Guard Assistance,Use of Upper Extremities Comments Mobility Comments Pt was up in chair upon assessment. BP at 157/84 . Noticeable brusies and swelling at his anterior neck. Pt stated minimal discomfort at this point and agreeabel to mobilize with PT and spouse. Pt completed sit to stand with CGA provided by spouse. He then amb with PT and FWW. Pt did get easily distracted while ambulating in the hallway and needed reminders for his precautions. He amb half the AC and was able to return to bathroom for toileting. He was able to stand unsupported to void and without FWW for 5 feet and used FWW to amb up to sink counter for cervical collar management. He then returned to chair safely. call ligth within reach and chair alarm activated. BP at 157/84 HR 107 Gait Assessment Gait Gait Assistance Required: Standby Assistance Distance (Feet) 200 Able to Maintain Weight Bearing Status Yes During Gait Assistive Devices Assistive Device Gait Belt,Front Wheeled Walker Orthotic/Prosthetic Devices or Brace: No Gait Deviations General Gait Pattern Decreased Stride Length, Decreased Feet Clearance Factors Limiting Gait Function Factors Limiting Gait Function Decreased Activity Tolerance, Decreased Strength,Poor Balance,Respiratory Distress Comments Gait Comments see mobility comments. Pt did get SOB during amb but spouse stated this is normal to him. He also amb with a mild steppage gait on L side due to L foot drop, but no signs of LOB during amb. 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 Pt led with RLE for both asecned and descend PT-Balance Assessment Sitting Balance and Reactions Static Sitting Balance Ability Normal Dynamic Sitting Balance Ability Normal Standing Balance and Reactions Static Standing Balance Ability Normal Dynamic Standing Balance Ability Normal Device Used FWW M5 PT-IP Objective Assessments Start: 11/24/19 08:13 Freq: NEEDED Status: Active Protocol: Document 11/24/19 09:15 HH (Rec: 11/24/19 10:58 [email or web address]) Orientation Orientation/Cognition Level of Alertness Alert Orientation Name,Age,Birthday,Month,Date, Year Language Function Ability Word Finding Difficulties,Hard of Hearing Safety Awareness Understands Safety Issues Memory Description Short Term Impaired Comments pt has difficulty remembering postop precautions. Gross Range of Motion Upper Extremity ROM Assessment Within Functional Limits Lower Extremity ROM Assessment Left Impaired Impairments mild foot drop on L during amb . Strength Upper Extremity Strength Assessment Within Functional Limits Shoulder 4/5 Elbow 4/5 Wrist 4/5 Lower Extremity Strength Assessment Left Impaired Hip 4/5 Knee 4/5 Ankle 3/5 Comments Strength Comments L foot = 3/5 Coordination Assessment Gross Coordination Gross Coordination WNL Sensation Assessment Sensation Gross Sensation WNL Light Touch Intact Proprioception (Position) Intact Muscle Tone Muscle Tone WNL Yes M6 PT-IP Treatment Start: 11/24/19 08:13 Freq: NEEDED Status: Active Protocol: Document 11/24/19 09:15 (Rec: 11/24/19 10:58 [email or web address]) Physical Therapy Treatment Education Education Provided Precautions,Weight Bearing Status,Post-Op Packet,Safety Brace Education Donning,Freeborn,Patient, Caregiver M7 PT-IP Assessment and Plan Start: 11/24/19 08:13 Freq: NEEDED Status: Active Protocol: Document 11/24/19 09:15 (Rec: 11/24/19 10:58 [email or web address]) PT Summary Assessment and Plan Potential Rehabilitation Potential Excellent Status of Condition at Evaluation Stable Summary Impairments Pain,ROM,Strength,Balance, Coordination,Tone,Cognition, Bed Mobility,Transfers,Gait, Activity Tolerance Progress Towards Goals Safe For Discharge Assessment Summary Pt is a low complexity 74yo male s/p POD 2 C5-C7 ACDF. Upon assessment, pt has a raspy voice but states that he was having some problems with this before surgery but seems to be better as she stated. Patient also has various bruising to his arms and a skin tear. Pt overall did relatively well with mobility with FWW SBA/ CGA from spouse. Able to clear stair as well .Although pt has difficulty remembering postop precautions but Pt has a very supportive and physically stronge spouse to assist as needed at home. Pt will be safe to d/c home at this point. Frequency of Treatment Frequency Of Treatment Discharge Recommendations To Nursing Amount of Assist Needed Standby Assistance Discharge Recommendations PT Discharge Recommendations Home with Assistance
--- NOTE | 2019-11-24 11:14 | CM.IDA ---
Discharge Planning/Care Management CM Discharge Assessment Start: 11/24/19 11:08 Freq: Status: Active Protocol: Document 11/24/19 11:10 MICHEL (Rec: 11/24/19 11:14 MICHEL [id number]) Discharge Planning Assessment Assigned Tilt Tray Driver MARLEY Dotson DPOA/Assigned Designee Name Eliane Lobo, spouse Contact Information [phone] cell, home Advance Directives? Yes Advance Directives on File Yes History Provided By Patient,Medical Record Prior Living Arrangements House Household Members spouse Type of transporation used prior to Drives own vehicle admit Independent with ADL's Yes Is patient alert and oriented? Yes Barriers to Discharge No Comment Pt is POD#1 from spinal surgery w/ Dr Caruso. Pt has already been cleared for DC home today w/spouse to assist PCP: Dr Slater Payer: MCR/ZAK Saw pt and his family as RN was reviewing DC instructions. Therapy team has cleared pt for return home and pt eager to do so, no barriers identified. Home today w/ family to assist via family pov MARLEY Mcarthur Discharge Plan Home Transportation Arrangement Family Referrals Initiated None needed
== END 2019-11-24 11:30 | disposition home or self-care (01) | DRG 473 ==
PROVIDERS: Admitting Provider Orthopaedic Surgery; Family Provider Family Medicine; PCP Family Medicine; Visit Provider Orthopaedic Surgery
PROC: 0RG20A0 Fusion of 2 or more Cervical Vertebral Joints with Interbody Fusion Device, Anterior Approach, Anterior Column, Open Approach (ICD-10-PCS; principal; 2019-11-23 12:15)
DX: M50.022 Cervical disc disorder at C5-C6 level with myelopathy (principal); E11.42 Type 2 diabetes mellitus with diabetic polyneuropathy; I10 Essential (primary) hypertension; E78.5 Hyperlipidemia, unspecified; F32.9 Major depressive disorder, single episode, unspecified; J44.9 Chronic obstructive pulmonary disease, unspecified; F17.210 Nicotine dependence, cigarettes, uncomplicated; I25.10 Atherosclerotic heart disease of native coronary artery without angina pectoris; G47.33 Obstructive sleep apnea (adult) (pediatric); N40.0 Benign prostatic hyperplasia without lower urinary tract symptoms; M21.372 Foot drop, left foot; Z79.84 Long term (current) use of oral hypoglycemic drugs; Z95.1 Presence of aortocoronary bypass graft
CPT/HCPCS: 72040; 76000; 82962; 94640; 97116; 97161; 97535; C1776; J0330; J0690; J1100; J1170; J2405; J2704

== ENCOUNTER 2019-12-30 13:08 | Inpatient (IN) | payer MEDICARE, BC, SELFPAY ==
[2019-11-23 17:32] VITALS: BMI 28.3
[2019-12-30] VITALS (8 sets, daily range): BP systolic 111–208; BP diastolic 59–92; PULSE 78–90; RESP 18–24; TEMP 36.3–36.5; O2SAT 91–100; BMI 27.3
--- NOTE | 2019-12-30 13:20 | DI.RAD.S_ITS ---
PROCEDURE: XR ACUTE ABDOMEN SERIES INDICATIONS: No BM since last Wednesday. TECHNIQUE: One view chest and two views of the abdomen were acquired. COMPARISON: None. FINDINGS: Surgical changes and devices: Post CABG changes are seen. Right upper quadrant postoperative clips are seen. Chest: Lungs are clear. Heart size is normal. No pleural effusions. No pneumoperitoneum. Abdomen: Gaseous prominence of colon and small bowel can be seen. The small bowel loops measure up to 3.6 cm and the transverse colon measures up to 6 cm. On the upright examination, no pathologic air-fluid levels are seen. No suspicious calcifications. Visualized solid organ contours appear normal. Bones: No suspicious bony lesions. Age-appropriate bony degenerative changes are seen. IMPRESSION: These imaging findings are most compatible with ileus. If it would be helpful for clinical management decision making, please consider a dedicated CT of the abdomen and pelvis. If oral contrast is given, please consider a long dwell time of 3-4 hours before scanning. Postoperative and degenerative changes are seen. Dictated by: Ced Talbot M.D. on 12/30/2019 at 13:09 Approved by: Ced Talbot M.D. on 12/30/2019 at 13:10
--- NOTE | 2019-12-30 14:27 | ED.ABDPAIN ---
HPI - Abdominal Pain <PEDRITO Turner - Last Filed: 12/30/19 21:21> General Chief Complaint: Abdominal Pain Stated Complaint: no bowel movement for 5 days Time Seen by Provider: 12/30/19 14:02 Source: patient and family Mode of arrival: Wheelchair Limitations: other (hearing difficulty) History of Present Illness HPI narrative: This is a 74-year-old gentleman, former smoker, who presents to ED with spouse with chief complain of no bowel movement for for a week. Patient has a known chronic constipation and takes Dulcolax 3 tabs daily and had stool incontinence last week Wednesday which was the last bowel movement. Patient has a bowel movement every 3-4 days and takes to collects 3 tabs daily. Patient had a surgery by Dr. Simms on 11/23/2019 C5-7 ACDF with cages and is not currently on narcotic pain medication but takes Tylenol as needed. Significant other reports decreased solid food intake last 6 months especially after recent surgery. Spouse denies vomiting, fever, abdominal discomfort at home. Patient uses a walker/stick for ambulation. Patient was evaluated at Dr. Slater's office on 12/19/2019 and spouse expressed concerns at the time which she was told not likely. Patient was instructed by Dr. Slater to go into the hospital if patient does not have bowel movement by today. Related Data Home Medications Medication Instructions Recorded Confirmed acetaminophen [Tylenol Extra 1,000 mg PO BID #0 05/01/13 12/31/19 Strength] fenofibrate nanocrystallized 145 mg PO QNOON #0 05/01/13 12/31/19 [Tricor] indomethacin 50 mg PO PRN PRN #0 05/01/13 12/31/19 nitroglycerin [Nitrostat] 0.4 mg SUBLINGUAL PRN PRN #0 05/01/13 12/31/19 losartan 50 mg tablet 50 mg PO BID tab 04/06/19 12/31/19 loratadine 10 mg tablet 10 mg PO DAILY 09/18/19 12/31/19 aspirin 81 mg PO DAILY 11/14/19 12/31/19 nitroglycerin 1 patch TRANSDERMAL DAILY 11/14/19 12/31/19 finasteride 5 mg PO BEDTIME 12/31/19 12/31/19 potassium chloride 10 meq PO DAILY 12/31/19 12/31/19 Previous Rx's Medication Instructions Recorded Disabled Parking Permit / . #1 03/26/17 amlodipine [Norvasc] 5 mg PO QDAY #90 tab 09/28/17 atorvastatin [Lipitor] 20 mg PO HS #90 tab 09/28/17 metformin 500 mg tablet 1,000 mg PO BID #360 tab 06/09/18 fluticasone 250 mcg-salmeterol 50 1 inhalation INHALATION BID #60 04/06/19 mcg/dose blistr powdr for dose inhalation hydrochlorothiazide 25 mg tablet 25 mg PO DAILY #90 tab 07/24/19 carbamazepine 200 mg 200 mg PO BID #180 cap 08/21/19 capsule,extended release [id number] blood sugar diagnostic See Rx Instructions .ROUTE 08/31/19 .COMPLEX #100 each citalopram 20 mg tablet 20 mg PO DAILY #60 tab 09/18/19 carvedilol 25 mg tablet 25 mg PO BID #180 tab 09/25/19 amitriptyline 50 mg tablet 50 mg PO DAILY #90 tab 10/09/19 Allergies Allergy/AdvReac Type Severity Reaction Status Date / Time adhesive tape [ADHESIVE TAPE] Allergy Intermediate itching/rash-with Verified 12/18/19 10:14 prolonged use tapentadol [TAPENTADOL] Allergy Mild RASH Verified 12/18/19 10:14 Review of Systems <PEDRITO Turner - Last Filed: 12/30/19 21:21> Review of Systems Narrative: General: Denies fever, chills,(+) fatigue, malaise, sweats. HEENT: Denies sinus pain, ear pain, sore throat, difficulty swallowing, dizziness. (+) decreased hearing. Respiratory: Denies dyspnea, cough, wheezing, hemoptysis, sputum. Cardiovascular: Denies chest pain, palpitations, orthopnea, (+) chronic bilateral lower leg edema. Gastrointestinal: See HPI : Denies dysuria, (+) choronic nocturnal urinary frequency, incontinence, hematuria, urinary retention. Musculoskeletal: Denies weakness, joint pain or bony pain. Skin: Denies rash, skin lesions, or other. Neurologic: Denies weakness, headache, numbness, change in speech, confusion, seizures, incoordination. Psychiatric: No concerning psychosocial issues, (+) history of depression. 12-point review of systems is negative except for those stated above. Patient History <PEDRITO Turner - Last Filed: 12/30/19 21:21> Medical History Carpal tunnel syndrome (Chronic ~1982) Chicken pox (Resolved) Chronic back pain (Chronic ~2014) Coronary artery disease (Chronic ~2001) Diabetes mellitus (Chronic ~1997) Gout (Chronic) Hearing loss (Chronic) Hemorrhoid (Chronic) Kidney stones (Chronic) Peripheral vascular disease (Chronic ~1989) Precancerous skin lesion (Chronic) Rheumatoid arthritis (Chronic) Shoulder pain (Chronic) Sleep apnea (Chronic ~1989) Tinnitus (Chronic) Vertigo (Chronic ~2011) Surgical History Anesthesia (Resolved) H/O cervical spine surgery (Acute) Hx of arthroscopy of left knee (Acute) 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 Head: Normal cephalic, atraumatic. No scalp or temporal tenderness, palpable mass or rash. EYES: Pupils are equal, round, and reactive to light and accommodation. Extraocular muscles are intact bilaterally. There is no subconjunctival hemorrhage, exudate and sclera non-icteric. ENT: Bilateral auditory canals and tympanic membranes clear. Hearing decreased bilateral ears. Nose without bleeding, purulent discharge or deviation. Facial sinuses nontender to palpate. Mucous membrane moist, no mucosal lesion. Throat without erythema, tonsillar hypertrophy or exudate. Uvula in midline, airway patent. Neck: Trachea in midline. Surgical incision site on left lower neck without signs of infection. No JVD, non-tender without lymphadenopathy. No masses or thyroid megaly. Supple, non-tender and no meningeal signs. CARDIAC: Normal regular rate and rhythm without murmurs, gallops, or rubs. No chest wall tenderness with ecchymosis in anterior chest after C-spine surgery. Bilateral lower extremity edema and has compression stockings. No cyanosis or pallor. Capillary refill is less than 2 seconds. RESPIRATORY: Lungs are clear to auscultate bilaterally. No cough, wheezes, rales, or rhonchi. No stridor, respiratory distress, increase work of breathing, or accessary muscle used. ABD: Abdomen soft, nontender and non-distended. No guarding or rebound tenderness to palpate. Bowel sounds are normal in all 4 quadrants. There is no palpable masses or organomegaly. EXT: Full painless ROM of all extremities. SKIN: Warm, dry, normal color for patient. No erythema, lesions or rash over other visible areas except anterior chest wall. BACK: Nontender without deformity or crepitance. No flank tenderness. NEUROLOGICAL: Alert and oriented to place, time and person. Sensation and motor function intact bilaterally. No facial droops, dysphasia. Initial Vital Signs Initial Vital Signs: Vital Signs Temperature 97.7 F 12/30/19 13:15 Pulse Rate 82 12/30/19 13:15 Respiratory Rate 12/30/19 13:15 Blood Pressure 111/59 L 12/30/19 13:15 Pulse Oximetry 91 12/30/19 13:15 <Kannan Scott MD - Last Filed: 12/31/19 09:03> Initial Vital Signs Initial Vital Signs: Vital Signs Temperature 97.7 F 12/30/19 13:15 Pulse Rate 82 12/30/19 13:15 Respiratory Rate 20 12/30/19 13:15 Blood Pressure 111/59 L 12/30/19 13:15 Pulse Oximetry 91 12/30/19 13:15 <Justin Waller MD - Last Filed: 12/31/19 23:18> Initial Vital Signs Initial Vital Signs: Vital Signs Temperature 97.7 F 12/30/19 13:15 Pulse Rate 82 12/30/19 13:15 Respiratory Rate 20 12/30/19 13:15 Blood Pressure 111/59 L 12/30/19 13:15 Pulse Oximetry 91 12/30/19 13:15 Scores <[facility] - Last Filed: 12/30/19 21:21> GCS Flaco coma scale eye opening: Spontaneous Flaco coma scale verbal response: Orientated [place] coma scale motor response: Obey commands Flaco coma scale total score: 15 Course <[facility] - Last Filed: 12/30/19 21:21> Orders Ordered: Acetaminophen (Tylenol) 650 mg PO Q6HR PRN PRN Reason: Fever/Mild Pain (1-3) Amitriptyline HCl (Elavil) 50 mg PO 1400 [facility] Last Admin: 12/31/19 17:41 Dose: 50 mg Documented by: MARIOLA Amlodipine Besylate (Norvasc) 5 mg PO DAILY [facility] Last Admin: 12/31/19 09:43 Dose: Not Given Documented by: HERMINIA Aspirin (Aspirin Ec) 81 mg PO DAILY [facility] Last Admin: 12/31/19 09:42 Dose: Not Given Documented by: HERMINIA Atorvastatin Calcium (Lipitor) 20 mg PO BEDTIME [facility] Last Admin: 12/31/19 21:20 Dose: Not Given Documented by: Admin: 12/31/19 21:19 Dose: 20 mg Documented by: MARIOLA Carbamazepine (Tegretol Xr) 200 mg PO BID [facility] Last Admin: 12/31/19 21:18 Dose: 200 mg Documented by: Admin: 12/31/19 09:40 Dose: Not Given Documented by: Admin: 12/30/19 23:11 Dose: Not Given Documented by: MARITZA Carvedilol (Coreg) 25 mg PO BID [facility] Last Admin: 12/31/19 21:19 Dose: 25 mg Documented by: Admin: 12/31/19 09:42 Dose: Not Given Documented by: HERMINIA Citalopram Hydrobromide (Celexa) 20 mg PO DAILY [facility] Last Admin: 12/31/19 09:44 Dose: Not Given Documented by: HERMINIA Dextrose (D50w) 25 gm IV PRN PRN PRN Reason: Hypoglycemia Enoxaparin Sodium (Lovenox) 40 mg SUBCUT DAILY [facility] Last Admin: 12/31/19 09:18 Dose: 40 mg Documented by: HERMINIA Fenofibrate (Triglide) 160 mg PO QNOON [facility] Finasteride (Proscar) 5 mg PO DAILY [facility] Last Admin: 12/31/19 09:40 Dose: Not Given Documented by: HERMINIA Sodium Chloride (Normal Saline 0.9%) 1,000 mls @ 150 mls/hr IV CONT [facility] Last Infusion: 12/31/19 06:57 Dose: 125 mls/hr Documented by: Admin: 12/30/19 22:50 Dose: 125 mls/hr Documented by: MARITZA Insulin Aspart (Novolog Flexpen) 0 unit SUBCUT ACHS [facility]; Protocol Last Admin: 12/31/19 22:09 Dose: Not Given Documented by: Admin: 12/31/19 17:42 Dose: Not Given Documented by: Admin: 12/31/19 12:12 Dose: 1 unit Documented by: HERMINIA Cosigned by: ARTUR Losartan Potassium (Cozaar) 50 mg PO BID [facility] Last Admin: 12/31/19 21:19 Dose: 50 mg Documented by: Admin: 12/31/19 09:43 Dose: Not Given Documented by: HERMINIA Magnesium Hydroxide (Milk Of Magnesia) 30 ml PO DAILY PRN PRN Reason: Constipation Metformin HCl (Glucophage) 1,000 mg PO BIDWM [facility] Last Admin: 12/31/19 17:44 Dose: 1,000 mg Documented by: Admin: 12/31/19 09:42 Dose: Not Given Documented by: HERMINIA Naloxone HCl (Narcan) 0.2 mg IV Q2MIN PRN PRN Reason: Opiate Reversal Nitroglycerin (Nitro-Dur) 0.4 mg TOP DAILY [facility] Last Admin: 12/31/19 12:12 Dose: 0.4 mg Documented by: HERMINIA Nitroglycerin (Nitrostat) 0.4 mg SL [id number] PRN PRN Reason: Chest Pain Nitroglycerin (Nitro-Dur) 0.4 mg TOP 2100 [facility] Last Admin: 12/31/19 21:20 Dose: Not Given Documented by: MARIOLA Oxycodone/Acetaminophen (Percocet 5/325) 1 tab PO Q4HR PRN PRN Reason: Pain, Moderate (4-6) Last Admin: 12/31/19 06:54 Dose: 1 tab Documented by: DBROYLE Sennosides (Senna) 17.2 mg PO BEDTIME [facility] Last Admin: 12/31/19 21:21 Dose: Not Given Documented by: Admin: 12/30/19 23:45 Dose: Not Given Documented by: NISH Discontinued Medications Acetaminophen (Tylenol) 650 mg PO QID PRN PRN Reason: Pain, Mild (1-3) Fenofibrate (Tricor) 160 mg PO QNOON [facility] Last Admin: 12/31/19 14:23 Dose: Not Given Documented by: HERMINIA Hydrochlorothiazide (Hydrochlorothiazide) 25 mg PO DAILY [facility] Sodium Chloride (Normal Saline 0.9%) 1,000 mls @ 150 mls/hr IV CONT [facility] Last Infusion: 12/31/19 06:56 Dose: 125 mls/hr Documented by: Admin: 12/31/19 06:55 Dose: 150 mls/hr Documented by: Infusion: 12/30/19 21:01 Dose: 0 mls/hr Documented by: Admin: 12/30/19 18:09 Dose: 999 mls/hr Documented by: HARDEEP Sodium Chloride (Hypertonic Saline 3%) 100 mls @ 100 mls/hr IV NOW ONE Stop: 12/31/19 10:29 Last Infusion: 12/31/19 11:42 Dose: 100 mls/hr Documented by: Admin: 12/31/19 10:16 Dose: 100 mls/hr Documented by: HERMINIA Sodium Chloride (Hypertonic Saline 3%) 500 mls @ 100 mls/hr IV BOLUS ONE Stop: 12/31/19 14:19 Last Admin: 12/31/19 15:05 Dose: Not Given Documented by: HERMINIA Sodium Chloride (Hypertonic Saline 3%) 100 mls @ 100 mls/hr IV NOW ONE Stop: 12/31/19 18:30 Last Admin: 12/31/19 17:42 Dose: 100 mls/hr Documented by: MARIOLA Magnesium Citrate (Magnesium Citrate) 300 ml PO NOW ONE Stop: 12/30/19 15:46 Last Admin: 12/30/19 21:03 Dose: Not Given Documented by: SUSY Mineral Oil (Mineral Oil Enema) 1 each NV NOW ONE Stop: 12/30/19 15:46 Last Admin: 12/30/19 21:03 Dose: Not Given Documented by: SUSY Vital Signs Vital signs: Vital Signs - 8 hr 12/30/19 14:02 12/30/19 16:00 12/30/19 18:00 Pulse Rate 78 83 86 Respiratory Rate 20 18 Blood Pressure [Right Arm] 153/70 H 182/92 H 194/82 H Pulse Oximetry 100 98 95 12/30/19 18:30 12/30/19 19:00 Pulse Rate 88 86 Respiratory Rate 18 20 Blood Pressure [Right Arm] 208/73 H 182/86 H Pulse Oximetry 92 94 <Kannan Scott MD - Last Filed: 12/31/19 09:03> Orders Ordered: Acetaminophen (Tylenol) 650 mg PO Q6HR PRN PRN Reason: Fever/Mild Pain (1-3) Amitriptyline HCl (Elavil) 50 mg PO 1400 [facility] Last Admin: 12/31/19 17:41 Dose: 50 mg Documented by: MARIOLA Amlodipine Besylate (Norvasc) 5 mg PO DAILY [facility] Last Admin: 12/31/19 09:43 Dose: Not Given Documented by: HERMINIA Aspirin (Aspirin Ec) 81 mg PO DAILY [facility] Last Admin: 12/31/19 09:42 Dose: Not Given Documented by: HERMINIA Atorvastatin Calcium (Lipitor) 20 mg PO BEDTIME [facility] Last Admin: 12/31/19 21:20 Dose: Not Given Documented by: Admin: 12/31/19 21:19 Dose: 20 mg Documented by: MARIOLA Carbamazepine (Tegretol Xr) 200 mg PO BID [facility] Last Admin: 12/31/19 21:18 Dose: 200 mg Documented by: Admin: 12/31/19 09:40 Dose: Not Given Documented by: Admin: 12/30/19 23:11 Dose: Not Given Documented by: MARITZA Carvedilol (Coreg) 25 mg PO BID [facility] Last Admin: 12/31/19 21:19 Dose: 25 mg Documented by: Admin: 12/31/19 09:42 Dose: Not Given Documented by: HERMINIA Citalopram Hydrobromide (Celexa) 20 mg PO DAILY [facility] Last Admin: 12/31/19 09:44 Dose: Not Given Documented by: HERMINIA Dextrose (D50w) 25 gm IV PRN PRN PRN Reason: Hypoglycemia Enoxaparin Sodium (Lovenox) 40 mg SUBCUT DAILY [facility] Last Admin: 12/31/19 09:18 Dose: 40 mg Documented by: HERMINIA Fenofibrate (Triglide) 160 mg PO QNOON [facility] Finasteride (Proscar) 5 mg PO DAILY [facility] Last Admin: 12/31/19 09:40 Dose: Not Given Documented by: HERMINIA Sodium Chloride (Normal Saline 0.9%) 1,000 mls @ 150 mls/hr IV CONT [facility] Last Infusion: 12/31/19 06:57 Dose: 125 mls/hr Documented by: Admin: 12/30/19 22:50 Dose: 125 mls/hr Documented by: MARITZA Insulin Aspart (Novolog Flexpen) 0 unit SUBCUT ACHS [facility]; Protocol Last Admin: 12/31/19 22:09 Dose: Not Given Documented by: Admin: 12/31/19 17:42 Dose: Not Given Documented by: Admin: 12/31/19 12:12 Dose: 1 unit Documented by: HERMINIA Cosigned by: ARTUR Losartan Potassium (Cozaar) 50 mg PO BID [facility] Last Admin: 12/31/19 21:19 Dose: 50 mg Documented by: Admin: 12/31/19 09:43 Dose: Not Given Documented by: HERMINIA Magnesium Hydroxide (Milk Of Magnesia) 30 ml PO DAILY PRN PRN Reason: Constipation Metformin HCl (Glucophage) 1,000 mg PO BIDWM [facility] Last Admin: 12/31/19 17:44 Dose: 1,000 mg Documented by: Admin: 12/31/19 09:42 Dose: Not Given Documented by: HERMINIA Naloxone HCl (Narcan) 0.2 mg IV Q2MIN PRN PRN Reason: Opiate Reversal Nitroglycerin (Nitro-Dur) 0.4 mg TOP DAILY [facility] Last Admin: 12/31/19 12:12 Dose: 0.4 mg Documented by: HERMINIA Nitroglycerin (Nitrostat) 0.4 mg SL [id number] PRN PRN Reason: Chest Pain Nitroglycerin (Nitro-Dur) 0.4 mg TOP 2100 [facility] Last Admin: 12/31/19 21:20 Dose: Not Given Documented by: ZACKBSON Oxycodone/Acetaminophen (Percocet 5/325) 1 tab PO Q4HR PRN PRN Reason: Pain, Moderate (4-6) Last Admin: 12/31/19 06:54 Dose: 1 tab Documented by: JAY Sennosides (Senna) 17.2 mg PO BEDTIME [facility] Last Admin: 12/31/19 21:21 Dose: Not Given Documented by: Admin: 12/30/19 23:45 Dose: Not Given Documented by: NISH Discontinued Medications Acetaminophen (Tylenol) 650 mg PO QID PRN PRN Reason: Pain, Mild (1-3) Fenofibrate (Tricor) 160 mg PO QNOON [facility] Last Admin: 12/31/19 14:23 Dose: Not Given Documented by: HERMINIA Hydrochlorothiazide (Hydrochlorothiazide) 25 mg PO DAILY [facility] Sodium Chloride (Normal Saline 0.9%) 1,000 mls @ 150 mls/hr IV CONT [facility]ATH[facility] Last Infusion: 12/31/19 06:56 Dose: 125 mls/hr Documented by: Admin: 12/31/19 06:55 Dose: 150 mls/hr Documented by: Infusion: 12/30/19 21:01 Dose: 0 mls/hr Documented by: Admin: 12/30/19 18:09 Dose: 999 mls/hr Documented by: HARDEEP Sodium Chloride (Hypertonic Saline 3%) 100 mls @ 100 mls/hr IV NOW ONE Stop: 12/31/19 10:29 Last Infusion: 12/31/19 11:42 Dose: 100 mls/hr Documented by: Admin: 12/31/19 10:16 Dose: 100 mls/hr Documented by: HERMINIA Sodium Chloride (Hypertonic Saline 3%) 500 mls @ 100 mls/hr IV BOLUS ONE Stop: 12/31/19 14:19 Last Admin: 12/31/19 15:05 Dose: Not Given Documented by: HERMINIA Sodium Chloride (Hypertonic Saline 3%) 100 mls @ 100 mls/hr IV NOW ONE Stop: 12/31/19 18:30 Last Admin: 12/31/19 17:42 Dose: 100 mls/hr Documented by: MARIOLA Magnesium Citrate (Magnesium Citrate) 300 ml PO NOW ONE Stop: 12/30/19 15:46 Last Admin: 12/30/19 21:03 Dose: Not Given Documented by: SUSY Mineral Oil (Mineral Oil Enema) 1 each NV NOW ONE Stop: 12/30/19 15:46 Last Admin: 12/30/19 21:03 Dose: Not Given Documented by: SUSY Vital Signs Vital signs: Vital Signs - 8 hr 12/30/19 14:02 12/30/19 16:00 12/30/19 18:00 Pulse Rate 78 83 86 Respiratory Rate 20 18 Blood Pressure [Right Arm] 153/70 H 182/92 H 194/82 H Pulse Oximetry 100 98 95 12/30/19 18:30 12/30/19 19:00 Pulse Rate 88 86 Respiratory Rate 18 20 Blood Pressure [Right Arm] 208/73 H 182/86 H Pulse Oximetry 92 94 <Justin Waller MD - Last Filed: 12/31/19 23:18> Orders Ordered: Acetaminophen (Tylenol) 650 mg PO Q6HR PRN PRN Reason: Fever/Mild Pain (1-3) Amitriptyline HCl (Elavil) 50 mg PO 1400 [facility] Last Admin: 12/31/19 17:41 Dose: 50 mg Documented by: MARIOLA Amlodipine Besylate (Norvasc) 5 mg PO DAILY [facility] Last Admin: 12/31/19 09:43 Dose: Not Given Documented by: HERMINIA Aspirin (Aspirin Ec) 81 mg PO DAILY [facility] Last Admin: 12/31/19 09:42 Dose: Not Given Documented by: HERMINIA Atorvastatin Calcium (Lipitor) 20 mg PO BEDTIME [facility] Last Admin: 12/31/19 21:20 Dose: Not Given Documented by: Admin: 12/31/19 21:19 Dose: 20 mg Documented by: MARIOLA Carbamazepine (Tegretol Xr) 200 mg PO BID [facility] Last Admin: 12/31/19 21:18 Dose: 200 mg Documented by: Admin: 12/31/19 09:40 Dose: Not Given Documented by: Admin: 12/30/19 23:11 Dose: Not Given Documented by: MARITZA Carvedilol (Coreg) 25 mg PO BID [facility] Last Admin: 12/31/19 21:19 Dose: 25 mg Documented by: Admin: 12/31/19 09:42 Dose: Not Given Documented by: HERMINIA Citalopram Hydrobromide (Celexa) 20 mg PO DAILY [facility] Last Admin: 12/31/19 09:44 Dose: Not Given Documented by: HERMINIA Dextrose (D50w) 25 gm IV PRN PRN PRN Reason: Hypoglycemia Enoxaparin Sodium (Lovenox) 40 mg SUBCUT DAILY [facility] Last Admin: 12/31/19 09:18 Dose: 40 mg Documented by: HERMINIA Fenofibrate (Triglide) 160 mg PO QNOON [facility] Finasteride (Proscar) 5 mg PO DAILY [facility] Last Admin: 12/31/19 09:40 Dose: Not Given Documented by: HERMINIA Sodium Chloride (Normal Saline 0.9%) 1,000 mls @ 150 mls/hr IV CONT [facility] Last Infusion: 12/31/19 06:57 Dose: 125 mls/hr Documented by: Admin: 12/30/19 22:50 Dose: 125 mls/hr Documented by: MARITZA Insulin Aspart (Novolog Flexpen) 0 unit SUBCUT ACHS [facility]; Protocol Last Admin: 12/31/19 22:09 Dose: Not Given Documented by: Admin: 12/31/19 17:42 Dose: Not Given Documented by: Admin: 12/31/19 12:12 Dose: 1 unit Documented by: HERMINIA Cosigned by: ARTUR Losartan Potassium (Cozaar) 50 mg PO BID [facility] Last Admin: 12/31/19 21:19 Dose: 50 mg Documented by: Admin: 12/31/19 09:43 Dose: Not Given Documented by: HERMINIA Magnesium Hydroxide (Milk Of Magnesia) 30 ml PO DAILY PRN PRN Reason: Constipation Metformin HCl (Glucophage) 1,000 mg PO BIDWM [facility] Last Admin: 12/31/19 17:44 Dose: 1,000 mg Documented by: Admin: 12/31/19 09:42 Dose: Not Given Documented by: HERMINIA Naloxone HCl (Narcan) 0.2 mg IV Q2MIN PRN PRN Reason: Opiate Reversal Nitroglycerin (Nitro-Dur) 0.4 mg TOP DAILY [facility] Last Admin: 12/31/19 12:12 Dose: 0.4 mg Documented by: HERMINIA Nitroglycerin (Nitrostat) 0.4 mg SL [id number] PRN PRN Reason: Chest Pain Nitroglycerin (Nitro-Dur) 0.4 mg TOP 2100 [facility] Last Admin: 12/31/19 21:20 Dose: Not Given Documented by: MARIOLA Oxycodone/Acetaminophen (Percocet 5/325) 1 tab PO Q4HR PRN PRN Reason: Pain, Moderate (4-6) Last Admin: 12/31/19 06:54 Dose: 1 tab Documented by: JAY Sennosides (Senna) 17.2 mg PO BEDTIME [facility] Last Admin: 12/31/19 21:21 Dose: Not Given Documented by: Admin: 12/30/19 23:45 Dose: Not Given Documented by: [email or web address] Discontinued Medications Acetaminophen (Tylenol) 650 mg PO QID PRN PRN Reason: Pain, Mild (1-3) Fenofibrate (Tricor) 160 mg PO QNOON [facility] Last Admin: 12/31/19 14:23 Dose: Not Given Documented by: HERMINIA Hydrochlorothiazide (Hydrochlorothiazide) 25 mg PO DAILY [facility] Sodium Chloride (Normal Saline 0.9%) 1,000 mls @ 150 mls/hr IV CONT [facility] Last Infusion: 12/31/19 06:56 Dose: 125 mls/hr Documented by: Admin: 12/31/19 06:55 Dose: 150 mls/hr Documented by: Infusion: 12/30/19 21:01 Dose: 0 mls/hr Documented by: Admin: 12/30/19 18:09 Dose: 999 mls/hr Documented by: HARDEEP Sodium Chloride (Hypertonic Saline 3%) 100 mls @ 100 mls/hr IV NOW ONE Stop: 12/31/19 10:29 Last Infusion: 12/31/19 11:42 Dose: 100 mls/hr Documented by: Admin: 12/31/19 10:16 Dose: 100 mls/hr Documented by: HERMINIA Sodium Chloride (Hypertonic Saline 3%) 500 mls @ 100 mls/hr IV BOLUS ONE Stop: 12/31/19 14:19 Last Admin: 12/31/19 15:05 Dose: Not Given Documented by: HERMINIA Sodium Chloride (Hypertonic Saline 3%) 100 mls @ 100 mls/hr IV NOW ONE Stop: 12/31/19 18:30 Last Admin: 12/31/19 17:42 Dose: 100 mls/hr Documented by: MARIOLA Magnesium Citrate (Magnesium Citrate) 300 ml PO NOW ONE Stop: 12/30/19 15:46 Last Admin: 12/30/19 21:03 Dose: Not Given Documented by: SUSY Mineral Oil (Mineral Oil Enema) 1 each NV NOW ONE Stop: 12/30/19 15:46 Last Admin: 12/30/19 21:03 Dose: Not Given Documented by: SUSY Vital Signs Vital signs: Vital Signs - 8 hr 12/30/19 14:02 12/30/19 16:00 12/30/19 18:00 Pulse Rate 78 83 86 Respiratory Rate 20 18 Blood Pressure [Right Arm] 153/70 H 182/92 H 194/82 H Pulse Oximetry 100 98 95 12/30/19 18:30 12/30/19 19:00 Pulse Rate 88 86 Respiratory Rate 18 20 Blood Pressure [Right Arm] 208/73 H 182/86 H Pulse Oximetry 92 94 MDM - Abdominal Pain <PEDRITO Turner - Last Filed: 12/30/19 21:21> Differential Diagnosis Differential diagnosis: Likely abdominal pain, constipation and small bowel obstruction Medical Records Attestation: I reviewed the patient's medical records. Lab Data Attestation: I reviewed the patient's lab results. Result diagrams: 12/31/19 05:25 12/31/19 16:14 Labs: Lab Results 12/30/19 12/30/19 12/30/19 Range/Units 14:04 15:58 15:58 WBC 9.4 (4.5-11.0) X10^3/uL RBC 3.92 L (4.5-5.9) X10^6/uL Hgb 12.9 L (13.5-17.5) g/dL Hct 36.9 L (41-53) % MCV 94.1 (80-100) fL MCH 32.9 (26-34) PG MCHC 35.0 (30-36) % RDW 12.6 (11.6-14.8) % Plt Count 320 (150-400) X10^3/uL Neut % (Auto) 76.5 H (50-75) % Lymph % (Auto) 13.9 L (25-40) % [place] % (Auto) 8.9 (3-14) % Eos % (Auto) 0.4 L (2-4) % Baso % (Auto) 0.3 (0-2) % Neut # (Auto) 7200 H (3385-6141) /uL Lymph # (Auto) 1300 (2091-8219) /uL [place] # (Auto) 800 (0-900) /uL Eos # (Auto) 0 (0-450) /uL Baso # (Auto) 0 (0-100) /uL Sodium 124 L (137-145) mmol/L Potassium 3.6 (3.4-5.1) mmol/L Chloride 73 L* (98-107) mmol/L Carbon Dioxide 38 H (22-32) mmol/L BUN 24 H (9-20) mg/dL Creatinine 0.50 L (0.66-1.25) mg/dL Estimated GFR > 60.0 (>60) mL/min BUN/Creatinine Ratio 48.0 H (6-22) Glucose 151 H (80-110) mg/dL Calcium 9.3 (8.4-10.2) mg/dL Total Bilirubin 0.7 (0.2-1.3) mg/dL AST 42 (17-59) IU/L ALT 22 (<50) IU/L Alkaline Phosphatase 59 (38-126) U/L Total Protein 7.4 (6.3-8.2) g/dL Albumin 4.4 (3.5-5.0) g/dL Globulin 3.0 (1.7-4.1) g/dL Albumin/Globulin Ratio 1.5 (1.0-2.8) Lipase 142 (23-300) U/L Ur Random Sodium 34 (30-90) mmol/L Point of care testing: Urine Dip Bedside Urine Glucose Negative Bedside Urine Bilirubin + 1 Bedside Urine Ketone + 15 Urine Specific [place] 1.010 Bedside Urine Occult Blood - Negative Bedside Urine pH 6.0 Bedside Urine Protein +/- 15 Bedside Urine Urobilinogen +/- 1mg Bedside Urine Nitrite - Negative Bedside Urine Leukocytes - Negative Esterase Imaging Data XR-AAS: Radiologist's Impression: [address] [address] XRay Report Signed Patient: Delano Lobo EMR#: [id number] : [id number]:[id number] Age/Sex: 74 / MDate of Service: 12/30/19 Loc: ED Accession Number: [id number] Procedure: XR acute abdomen series Ordering Provider: Justin Waller MD PROCEDURE: XR ACUTE ABDOMEN SERIES INDICATIONS: No BM since last Wednesday. TECHNIQUE: One view chest and two views of the abdomen were acquired. COMPARISON: None. FINDINGS: Surgical changes and devices: Post CABG changes are seen. Right upper quadrant postoperative clips are seen. Chest: Lungs are clear. Heart size is normal. No pleural effusions. No pneumoperitoneum. Abdomen: Gaseous prominence of colon and small bowel can be seen. The small bowel loops measure up to 3.6 cm and the transverse colon measures up to 6 cm. On the upright examination, no pathologic air-fluid levels are seen. No suspicious calcifications. Visualized solid organ contours appear normal. Bones: No suspicious bony lesions. Age-appropriate bony degenerative changes are seen. IMPRESSION: These imaging findings are most compatible with ileus. If it would be helpful for clinical management decision making, please consider a dedicated CT of the abdomen and pelvis. If oral contrast is given, please consider a long dwell time of 3-4 hours before scanning. Postoperative and degenerative changes are seen. Dictated by: Ced Talbot M.D. on 12/30/2019 at 13:09 Approved by: Ced Talbot M.D. on 12/30/2019 at 13:10 CT scan - abdomen/pelvis: Radiologist's Impression: [place] [address] CT Scan Report Signed Patient: Delano Lobo EMR#: [id number] : [id number]:[id number] Age/Sex: 74 / MDate of Service: 12/30/19 Loc: ED Accession Number: [id number] Procedure: CT abdomen pelvis w con Ordering Provider: Garcia Case PROCEDURE: CT ABDOMEN PELVIS W CON INDICATIONS: constipation for 5 days TECHNIQUE: After the administration of oral and intravenous contrast, 5 mm thick sections acquired from the diaphragms to the symphysis. 5 mm thick coronal and sagittal reformats were performed. For radiation dose reduction, the following was used: automated exposure control, adjustment of mA and/or kV according to patient size. COMPARISON: None. FINDINGS: Image quality: Excellent. ABDOMEN: Lung bases: Bibasilar dependent change.. Heart size is normal. Coronary artery calcifications. Solid organs: Liver is normal in size and enhancement. Gallbladder is surgically absent.. Biliary system is non-dilated. Pancreas enhances normally. Spleen is normal in size and enhancement. No adrenal nodules. Right kidney is small. Both kidneys enhance normally. There is no hydronephrosis or mass or stone identified. Peritoneum and bowel: Mild diffuse thickening of the wall of the sigmoid, nonspecific. Bowel is otherwise unremarkable. No bowel obstruction. Moderate rectal fecal impaction. No free fluid or air. Nodes and vessels: No retroperitoneal or mesenteric adenopathy. Aorta and inferior vena cava are normal in caliber. Aortic atherosclerosis. Miscellaneous: No ventral hernias. PELVIS: Genitourinary: Bladder wall thickness is normal. Miscellaneous: Small bilateral inguinal hernias containing fat. No inguinal adenopathy. Bones: No suspicious bony lesions. No vertebral body compression fractures. IMPRESSION: 1. Moderate rectal fecal impaction. 2. Remote cholecystectomy. 3. Coronary and aortic atherosclerosis. Dictated by: Rodolfo Schaeffer M.D. on 12/30/2019 at 18:10 Approved by: Rodolfo Schaeffer M.D. on 12/30/2019 at 18:14 MDM Narrative Medical decision making narrative: This is a 74-year-old gentleman who presents to ED with no bowel movement for about a week without abdominal pain, vomiting, fever with decreased p.o. intake of solid foods. Initial acute abdominal series showed possible ileus. Abdominal physical exam was unremarkable. Chemistry indicates Sodium was 124 with chloride of 73, CO2 of 38 with increased BUN and BUN creatinine ratio of 24 and 48. CBC indicates mild anemia of H&H of 12.9 and 36.9. IV and oral contrast abdomen and pelvis CT was obtained and shows no acute findings but moderate rectal fecal impaction. Patient had about 3 stool incontinence before abdomen/pelvis CT was obtained. Patient received 500 mL of normal saline bolus and gentle hydration of 150 mL per hour after then. Patient had several urine output while in ED. patient's blood pressure during ED stay and patient had taken all his night medications including hypertensive and diabetic medications from home. Patient denies abdominal discomfort at this time and had a couple of additional loose bowel movements. Dr Scott was consulted and patient was admitted to in patient with tele monitor for hyponatremia, hypochloremia and dehydration with gentle normal saline replacement and rechecking the electrolyte. Patient and spouse in agreement with the treatment plan for admission. <Kannan Scott MD - Last Filed: 12/31/19 09:03> Lab Data Labs: Lab Results 12/30/19 12/30/19 12/30/19 Range/Units 14:04 15:58 15:58 WBC 9.4 (4.5-11.0) X10^3/uL RBC 3.92 L (4.5-5.9) X10^6/uL Hgb 12.9 L (13.5-17.5) g/dL Hct 36.9 L (41-53) % MCV 94.1 (80-100) fL MCH 32.9 (26-34) PG MCHC 35.0 (30-36) % RDW 12.6 (11.6-14.8) % Plt Count 320 (150-400) X10^3/uL Neut % (Auto) 76.5 H (50-75) % Lymph % (Auto) 13.9 L (25-40) % [place] % (Auto) 8.9 (3-14) % Eos % (Auto) 0.4 L (2-4) % Baso % (Auto) 0.3 (0-2) % Neut # (Auto) 7200 H (6544-0803) /uL Lymph # (Auto) 1300 (8194-9472) /uL [place] # (Auto) 800 (0-900) /uL Eos # (Auto) 0 (0-450) /uL Baso # (Auto) 0 (0-100) /uL Sodium 124 L (137-145) mmol/L Potassium 3.6 (3.4-5.1) mmol/L Chloride 73 L* (98-107) mmol/L Carbon Dioxide 38 H (22-32) mmol/L BUN 24 H (9-20) mg/dL Creatinine 0.50 L (0.66-1.25) mg/dL Estimated GFR > 60.0 (>60) mL/min BUN/Creatinine Ratio 48.0 H (6-22) Glucose 151 H (80-110) mg/dL Calcium 9.3 (8.4-10.2) mg/dL Total Bilirubin 0.7 (0.2-1.3) mg/dL AST 42 (17-59) IU/L ALT 22 (<50) IU/L Alkaline Phosphatase 59 (38-126) U/L Total Protein 7.4 (6.3-8.2) g/dL Albumin 4.4 (3.5-5.0) g/dL Globulin 3.0 (1.7-4.1) g/dL Albumin/Globulin Ratio 1.5 (1.0-2.8) Lipase 142 (23-300) U/L Ur Random Sodium 34 (30-90) mmol/L Point of care testing: Urine Dip Bedside Urine Glucose Negative Bedside Urine Bilirubin + 1 Bedside Urine Ketone + 15 Urine Specific [place] 1.010 Bedside Urine Occult Blood - Negative Bedside Urine pH 6.0 Bedside Urine Protein +/- 15 Bedside Urine Urobilinogen +/- 1mg Bedside Urine Nitrite - Negative Bedside Urine Leukocytes - Negative Esterase <Justin Waller MD - Last Filed: 12/31/19 23:18> Lab Data Labs: Lab Results 12/30/19 12/30/19 12/30/19 Range/Units 14:04 15:58 15:58 WBC 9.4 (4.5-11.0) X10^3/uL RBC 3.92 L (4.5-5.9) X10^6/uL Hgb 12.9 L (13.5-17.5) g/dL Hct 36.9 L (41-53) % MCV 94.1 (80-100) fL MCH 32.9 (26-34) PG MCHC 35.0 (30-36) % RDW 12.6 (11.6-14.8) % Plt Count 320 (150-400) X10^3/uL Neut % (Auto) 76.5 H (50-75) % Lymph % (Auto) 13.9 L (25-40) % [place] % (Auto) 8.9 (3-14) % Eos % (Auto) 0.4 L (2-4) % Baso % (Auto) 0.3 (0-2) % Neut # (Auto) 7200 H (0341-4923) /uL Lymph # (Auto) 1300 (0402-8410) /uL [place] # (Auto) 800 (0-900) /uL Eos # (Auto) 0 (0-450) /uL Baso # (Auto) 0 (0-100) /uL Sodium 124 L (137-145) mmol/L Potassium 3.6 (3.4-5.1) mmol/L Chloride 73 L* (98-107) mmol/L Carbon Dioxide 38 H (22-32) mmol/L BUN 24 H (9-20) mg/dL Creatinine 0.50 L (0.66-1.25) mg/dL Estimated GFR > 60.0 (>60) mL/min BUN/Creatinine Ratio 48.0 H (6-22) Glucose 151 H (80-110) mg/dL Calcium 9.3 (8.4-10.2) mg/dL Total Bilirubin 0.7 (0.2-1.3) mg/dL AST 42 (17-59) IU/L ALT 22 (<50) IU/L Alkaline Phosphatase 59 (38-126) U/L Total Protein 7.4 (6.3-8.2) g/dL Albumin 4.4 (3.5-5.0) g/dL Globulin 3.0 (1.7-4.1) g/dL Albumin/Globulin Ratio 1.5 (1.0-2.8) Lipase 142 (23-300) U/L Ur Random Sodium 34 (30-90) mmol/L Point of care testing: Urine Dip Bedside Urine Glucose Negative Bedside Urine Bilirubin + 1 Bedside Urine Ketone + 15 Urine Specific [place] 1.010 Bedside Urine Occult Blood - Negative Bedside Urine pH 6.0 Bedside Urine Protein +/- 15 Bedside Urine Urobilinogen +/- 1mg Bedside Urine Nitrite - Negative Bedside Urine Leukocytes - Negative Esterase Discharge Plan Departure Patient Disposition: Admitted As Inpatient Clinical Impression: Hyponatremia, Dehydration, Hypochloremia Discharge Date/Time: 12/30/19 21:24 Instructions: Hyponatremia-Adult Referrals: Jan Slater MD [Primary Care Provider] - Admit Date/Time: 12/30/19 20:20 Admit Provider: Kannan Scott
--- NOTE | 2019-12-30 14:34 | DI.CT.S_ITS ---
PROCEDURE: CT ABDOMEN PELVIS W CON INDICATIONS: constipation for 5 days TECHNIQUE: After the administration of oral and intravenous contrast, 5 mm thick sections acquired from the diaphragms to the symphysis. 5 mm thick coronal and sagittal reformats were performed. For radiation dose reduction, the following was used: automated exposure control, adjustment of mA and/or kV according to patient size. COMPARISON: None. FINDINGS: Image quality: Excellent. ABDOMEN: Lung bases: Bibasilar dependent change.. Heart size is normal. Coronary artery calcifications. Solid organs: Liver is normal in size and enhancement. Gallbladder is surgically absent.. Biliary system is non-dilated. Pancreas enhances normally. Spleen is normal in size and enhancement. No adrenal nodules. Right kidney is small. Both kidneys enhance normally. There is no hydronephrosis or mass or stone identified. Peritoneum and bowel: Mild diffuse thickening of the wall of the sigmoid, nonspecific. Bowel is otherwise unremarkable. No bowel obstruction. Moderate rectal fecal impaction. No free fluid or air. Nodes and vessels: No retroperitoneal or mesenteric adenopathy. Aorta and inferior vena cava are normal in caliber. Aortic atherosclerosis. Miscellaneous: No ventral hernias. PELVIS: Genitourinary: Bladder wall thickness is normal. Miscellaneous: Small bilateral inguinal hernias containing fat. No inguinal adenopathy. Bones: No suspicious bony lesions. No vertebral body compression fractures. IMPRESSION: 1. Moderate rectal fecal impaction. 2. Remote cholecystectomy. 3. Coronary and aortic atherosclerosis. Dictated by: Rodolfo Schaeffer M.D. on 12/30/2019 at 18:10 Approved by: Rodolfo Schaeffer M.D. on 12/30/2019 at 18:14
[2019-12-30 16:20] LABS: Alanine Aminotransferase 22 IU/L (<50); Albumin 4.4 g/dL (3.5-5.0); Albumin Globulin Ratio 1.5 (1.0-2.8); Alkaline Phosphatase 59 U/L (38-126); Aspartate Aminotransferase 42 IU/L (17-59); Bilirubin Total 0.7 mg/dL (0.2-1.3); Blood Urea Nitrogen 24 mg/dL (9-20); Calcium 9.3 mg/dL (8.4-10.2); Estimated Glomerular Filt Rate > 60.0 mL/min (>60); Glucose 151 mg/dL (80-110); HEMOLYSIS < 15 (0-50); Lipase 142 U/L (23-300); Potassium 3.6 mmol/L (3.4-5.1); Sodium 124 mmol/L (137-145); Total Protein 7.4 g/dL (6.3-8.2)
[2019-12-30 16:22] LABS: Add Manual Diff / Slide Review NO; Basophils Absolute Auto 0 /uL (0-100); Basophils Percent Auto 0.3 % (0-2); Eosinophils Absolute Auto 0 /uL (0-450); Eosinophils Percent Auto 0.4 % (2-4); Hematocrit 36.9 % (41-53); Hemoglobin 12.9 g/dL (13.5-17.5); Lymphocytes Absolute Auto 1300 /uL (1100-4500); Lymphocytes Percent Auto 13.9 % (25-40); Mean Corpuscular Hemoglobin 32.9 PG (26-34); Mean Corpuscular Volume 94.1 fL (80-100); Monocytes Absolute Auto 800 /uL (0-900); Monocytes Percent Auto 8.9 % (3-14); Neutrophils Absolute Auto 7200 /uL (1500-7000); Neutrophils Percent Auto 76.5 % (50-75); Platelet Count 320 X10^3/uL (150-400); Red Blood Cell Count 3.92 X10^6/uL (4.5-5.9); Red Cell Distribution Width 12.6 % (11.6-14.8); White Blood Cell Count 9.4 X10^3/uL (4.5-11.0)
[2019-12-30 16:27] LABS: Carbon Dioxide 38 mmol/L (22-32)
[2019-12-30 16:30] LABS: Chloride 73 mmol/L (98-107)
--- NOTE | 2019-12-30 17:37 | PC.NURSE ---
Pt cleaned of two large loose bowel movements. While cleaning buttocks, ulceration visible left buttock. 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
[2019-12-30] MEDS: SODIUM CHLORIDE 0.9% 1,000 ML 999 ML IV (18:09)
--- NOTE | 2019-12-30 19:07 | PC.NURSE ---
Home evening meds administered by of Pt, including metformin, carbitrol, and losartan.
--- NOTE | 2019-12-30 20:33 | PC.NURSE ---
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
[2019-12-30 22:29] LABS: Sodium Urine Random 34 mmol/L (30-90)
[2019-12-30] MEDS: SODIUM CHLORIDE 0.9% 1,000 ML 125 ML IV (22:50)
--- NOTE | 2019-12-30 22:52 | PC.NURSE ---
Pt to room 214 from [facility] awake and alert. Very little conversation and words are mostly unintelligible when pt does speak. Phone call by this investigative writer to pt's spouse at home to assist with pt's care and admission assessment. Spouse is very helpful in assisting this investigative writer in completing admission assessment as pt is totally nonparticipatory even with written words. Spouse states pt is very hard of hearing and refuses to wear hearing aids. Spouse states no dementia in her opinion. Spouse reports pt has sustained multiple falls since surgery last month. Reports pt to have swallow eval on Wednesday. Skin to right elbow with several open areas and active bleeding. Cleansed with normal saline, dried and allevyn gentle border dressing applied. Primary nurse, Kaye, documents pt's skin with worklist skin assessment and photographs. Bed alarm set for pt's safety. Spouse states pt has poor po intake and appetite with significant weight loss over past six months. States takes meds whole with water and reminder to tuck chin and not throw head back.
[2019-12-31] VITALS (8 sets, daily range): BP systolic 114–179; BP diastolic 58–84; PULSE 83–91; RESP 16–26; TEMP 35.6–36.6; O2SAT 94–98
[2019-12-31 05:52] LABS: Blood Urea Nitrogen 16 mg/dL (9-20); Calcium 8.4 mg/dL (8.4-10.2); Carbon Dioxide 36 mmol/L (22-32); Estimated Glomerular Filt Rate > 60.0 mL/min (>60); Glucose 142 mg/dL (80-110); HEMOLYSIS < 15 (0-50); Potassium 3.7 mmol/L (3.4-5.1); Sodium 123 mmol/L (137-145)
[2019-12-31 06:03] LABS: Add Manual Diff / Slide Review NO; Basophils Absolute Auto 100 /uL (0-100); Basophils Percent Auto 0.5 % (0-2); Eosinophils Absolute Auto 0 /uL (0-450); Eosinophils Percent Auto 0.2 % (2-4); Hematocrit 36.1 % (41-53); Hemoglobin 12.9 g/dL (13.5-17.5); Lymphocytes Absolute Auto 1100 /uL (1100-4500); Lymphocytes Percent Auto 11.6 % (25-40); Mean Corpuscular HGB Conc 35.7 % (30-36); Mean Corpuscular Hemoglobin 33.4 PG (26-34); Mean Corpuscular Volume 93.8 fL (80-100); Monocytes Absolute Auto 600 /uL (0-900); Monocytes Percent Auto 6.6 % (3-14); Neutrophils Absolute Auto 7900 /uL (1500-7000); Neutrophils Percent Auto 81.1 % (50-75); Platelet Count 348 X10^3/uL (150-400); Red Blood Cell Count 3.85 X10^6/uL (4.5-5.9); Red Cell Distribution Width 12.5 % (11.6-14.8); White Blood Cell Count 9.7 X10^3/uL (4.5-11.0)
[2019-12-31] MEDS: OXYCODONE/ACETAMINOPHEN 5/325 TABLET 1 TAB PO (06:54)
[2019-12-31] MEDS: SODIUM CHLORIDE 0.9% 1,000 ML 150 ML IV (06:55)
[2019-12-31 06:59] LABS: Chloride 76 mmol/L (98-107)
[2019-12-31 08:32] LABS: Cholesterol 115 mg/dL (140-199); HDL Cholesterol 52 mg/dL (40-60); LDL Cholesterol Calculated 36 mg/dL (<100); Triglycerides 136 mg/dL (35-150)
[2019-12-31 09:04] LABS: Thyroid Stimulating Hormone 1.15 uIU/mL (0.47-4.68)
--- NOTE | 2019-12-31 09:04 | PM.HP.1 ---
History of Present Illness History of Present Illness Date Patient Seen: 12/31/19 Time Patient Seen: 07:29 Chief complaint: no bowel movement for 5 days Narrative: 74-year-old who is a very poor historian. Has some confusion this morning. Able to follow simple commands. Knows his name knows that he lives in [address]. Is unsure where he is at. His speech is a little bit sluggish. He is hard to understand him. Patient was brought to his yesterday to the emergency department for abdominal pain and constipation. Guess in the emergency room they had a normal number of bowel movements. On laboratory findings he was found to have low sodium. He was admitted for further evaluation and treatment of his hyponatremia. Patient's history is as followed obtain from in chart. Over the last 6 months patient has had increasing problems after he had surgery worries had just increasing weakness. Not really wanting to get up and move. He has also had some weight loss. Been a little bit more lethargic. Having more and more problems with constipation he has had some problems with chronic constipation. But this has become a more of an issue. On my evaluation this morning. Patient is unable to provide much of a history. Which was not reported to me last night. He appears to be somewhat confused some slurred speech. Definitely has neurological symptom compromise due to his hyponatremia. His repeat sodium laboratory testing are pretty much the same as yesterday. He was placed on normal saline overnight. He has not not had much improvement. His urine output has been adequate his vital signs have been stable. His other laboratory tests were reviewed. Patient History Medical History Carpal tunnel syndrome (Chronic ~1982) Chicken pox (Resolved) Chronic back pain (Chronic ~2014) Coronary artery disease (Chronic ~2001) Diabetes mellitus (Chronic ~1997) Gout (Chronic) Hearing loss (Chronic) Hemorrhoid (Chronic) Kidney stones (Chronic) Peripheral vascular disease (Chronic ~1989) Precancerous skin lesion (Chronic) Rheumatoid arthritis (Chronic) Shoulder pain (Chronic) Sleep apnea (Chronic ~1989) Tinnitus (Chronic) Vertigo (Chronic ~2011) Surgical History Anesthesia (Resolved) H/O cervical spine surgery (Acute) Hx of arthroscopy of left knee (Acute) S/P CABG x 2 (Acute 06/29/02) Status post cholecystectomy (~1984) Status post hemorrhoidectomy (~1994) Status post laminectomy (~2015) Family & Social History Family History Father Hypertension Mother Age: 92 Dementia Stroke Osteoporosis Social History: household members spouse Prior Living Arrangements House Safety & Behavioral: Suicidal Ideation Description None Suicide Plan Description No Plan Tobacco & Substance use: Smoking Status Former smoker alcohol intake former Substance Use Type does not use Meds Home Medications and Allergies Home Medications Medication Instructions Recorded Confirmed Type acetaminophen [Tylenol Extra 500 mg PO QID PRN #0 05/01/13 12/18/19 History Strength] ascorbic acid (vitamin C) 1,000 mg PO QDAY #0 05/01/13 12/18/19 History fenofibrate nanocrystallized 160 mg PO QNOON #0 05/01/13 12/18/19 History [Tricor] indomethacin 25 mg PO PRN PRN #0 05/01/13 12/18/19 History nitroglycerin [Nitrostat] 0.4 mg SUBLINGUAL PRN PRN #0 05/01/13 12/18/19 History Disabled Parking Permit / . #1 03/26/17 12/18/19 Rx amlodipine [Norvasc] 5 mg PO QDAY #90 tab 09/28/17 12/18/19 Rx atorvastatin [Lipitor] 20 mg PO HS #90 tab 09/28/17 12/18/19 Rx finasteride 5 mg PO QDAY #90 tab 09/28/17 12/18/19 Rx metformin 500 mg tablet 1,000 mg PO BID #360 tab 06/09/18 12/18/19 Rx fluticasone 250 mcg-salmeterol 50 1 inhalation INHALATION BID #60 04/06/19 12/18/19 Rx mcg/dose blistr powdr for dose inhalation losartan 50 mg tablet 50 mg PO BID tab 04/06/19 12/18/19 History hydrochlorothiazide 25 mg tablet 25 mg PO DAILY #90 tab 07/24/19 12/18/19 Rx carbamazepine 200 mg 200 mg PO BID #180 cap 08/21/19 12/18/19 Rx capsule,extended release [id number] blood sugar diagnostic See Rx Instructions .ROUTE 08/31/19 12/18/19 Rx .COMPLEX #100 each citalopram 20 mg tablet 20 mg PO DAILY #60 tab 09/18/19 12/18/19 Rx loratadine 10 mg tablet 10 mg PO DAILY 09/18/19 12/18/19 History carvedilol 25 mg tablet 25 mg PO BID #180 tab 09/25/19 12/18/19 Rx amitriptyline 50 mg tablet 50 mg PO DAILY #90 tab 10/09/19 12/18/19 Rx aspirin 81 mg PO DAILY 11/14/19 12/18/19 History nitroglycerin 1 patch TRANSDERMAL DAILY 11/14/19 12/18/19 History celecoxib [Celebrex] 200 mg PO BID PRN #60 cap 11/24/19 12/18/19 Rx Allergies Allergy/AdvReac Type Severity Reaction Status Date / Time adhesive tape [ADHESIVE TAPE] Allergy Intermediate itching/rash-with Verified 12/18/19 10:14 prolonged use tapentadol [TAPENTADOL] Allergy Mild RASH Verified 12/18/19 10:14 Exam Vital Signs (past 8 hours): - 12/31/19 04:00 Temperature 96.7 F L Pulse Rate 88 Respiratory Rate 16 Blood Pressure 167/81 H Pulse Oximetry 94 Oxygen Delivery Method Room Air Oxygen Flow Rate 0 Narrative Exam Narrative: Gen.: Patient answers questions and follows simple direction he is confused to place time HEENT: Pupils equal round and reactive or mucosa is slightly dry. Cardio: Regular rate and rhythm no murmurs Respiratory: Lungs are clear Abdomen: Soft nontender Extremities: Moving all extremities Neurologic: Patient is grossly intact neurologically Objective Labs Result Diagrams: 12/31/19 05:25 12/31/19 05:25 Labs: Laboratory Results - last 24 hr 12/30/19 12/30/19 12/30/19 14:04 15:58 15:58 WBC 9.4 RBC 3.92 L Hgb 12.9 L Hct 36.9 L MCV 94.1 MCH 32.9 MCHC 35.0 RDW 12.6 Plt Count 320 Neut % (Auto) 76.5 H Lymph % (Auto) 13.9 L [place] % (Auto) 8.9 Eos % (Auto) 0.4 L Baso % (Auto) 0.3 Neut # (Auto) 7200 H Lymph # (Auto) 1300 [place] # (Auto) 800 Eos # (Auto) 0 Baso # (Auto) 0 Sodium 124 L Potassium 3.6 Chloride 73 L* Carbon Dioxide 38 H BUN 24 H Creatinine 0.50 L Estimated GFR > 60.0 BUN/Creatinine Ratio 48.0 H Glucose 151 H Calcium 9.3 Total Bilirubin 0.7 AST 42 ALT 22 Alkaline Phosphatase 59 Total Protein 7.4 Albumin 4.4 Globulin 3.0 Albumin/Globulin Ratio 1.5 Triglycerides Cholesterol LDL Cholesterol, Calc HDL Cholesterol Lipase 142 Ur Random Sodium 34 12/31/19 12/31/19 12/31/19 05:25 05:25 05:25 WBC 9.7 RBC 3.85 L Hgb 12.9 L Hct 36.1 L MCV 93.8 MCH 33.4 MCHC 35.7 RDW 12.5 Plt Count 348 Neut % (Auto) 81.1 H Lymph % (Auto) 11.6 L [place] % (Auto) 6.6 Eos % (Auto) 0.2 L Baso % (Auto) 0.5 Neut # (Auto) 7900 H Lymph # (Auto) 1100 [place] # (Auto) 600 Eos # (Auto) 0 Baso # (Auto) 100 Sodium 123 L Potassium 3.7 Chloride 76 L* Carbon Dioxide 36 H BUN 16 Creatinine 0.50 L Estimated GFR > 60.0 BUN/Creatinine Ratio 32.0 H Glucose 142 H Calcium 8.4 Total Bilirubin AST ALT Alkaline Phosphatase Total Protein Albumin Globulin Albumin/Globulin Ratio Triglycerides 136 Cholesterol 115 L LDL Cholesterol, Calc 36 HDL Cholesterol 52 Lipase Ur Random Sodium Assessment & Plan Assessment & Plan narrative: Acute moderate hyponatremia with neurological deficits. Patient with the confusion. Disorientation. Slurring of speech. Not wanting to eat and unable to ambulate. Patient will be admitted for correction of his serum sodium. First placed on normal saline last evening. His sodium has maintained his level and no improvement of his neurological symptoms. Will begin the process of working up underlying causes. Possibly due to medication so his hydrochlorothiazide will be held. Patient will have correction of his serum sodium due to his neurological changes and confusion and slurring of speech. Will do a small bolus 3% saline that. In monitor closely his sodium level for over-correction. He will also be placed on normal saline. We will fluid restrict him. We will monitor his sodium closely. If he will have urine osmolality urine sodium. Thyroid testing lipid testing to rule and make sure this is not pseudo hyponatremia which I do not think it is. Will see if this will improve his neurological status over the next 12-24 hours. Constipation. Patient with significant constipation I guess patient had normal bowel movements 3+ in the emergency room yesterday after treatment for this. Patient has been on narcotics since the neck surgery. Will monitor his bowel status here. Coronary artery disease with hypertension and hyperlipidemia. He will be placed back on his medications for his heart blood pressure and cholesterol. BPH history. Patient is on Flomax. Will go ahead and place a Pan catheter in the patient for about better monitoring his electrolytes status. Also to rule out underlying urinary obstruction is the cause of his hyponatremia will do a bladder scan 1st before this. Type 2 diabetes. Patient is on metformin at home. His has normal kidney function. This time we will just continue with his metformin is I do not think is going to have any contrast related scans. And is currently not eating. Disposition and plan. Patient meets inpatient criteria for his significant hyponatremia neurological symptoms confusion inability to eat. Will monitor closely. Scores GCS Flaco coma scale eye opening: Spontaneous Flaco coma scale verbal response: Confused Wedron coma scale motor response: Obey commands Flaco coma scale total score: 14 Quality VTE Deep Vein Thrombosis/Pulmonary Embolism Present on Admission: No
[2019-12-31] MEDS: ENOXAPARIN 40 MG/0.4 ML SYRINGE SUBCUT (09:18)
[2019-12-31] MEDS: SODIUM CHLORIDE 3 % 100 ML IV ×2 (10:16→17:42)
[2019-12-31] MEDS: NITROGLYCERIN 0.4 MG PATCH TOP (12:12)
[2019-12-31] MEDS: INSULIN ASPART 100 UNIT/ML INSULN PEN SUBCUT (12:12)
--- NOTE | 2019-12-31 14:29 | CM.DANOTE ---
Patient is a 74 year old male who was admitted on 12/30/19 for Dysphagia, Constipation. Pt has MCR and [employer] OUT [employer] for insurance and his PCP is Dr. Jan Slater. EMR was reviewed. Per MD, pt with chronic constipation issues and has now had one week since his last bowel movement. Per RN, pt globally confused this morning and spouse should be bedside later today. SW met bedside with pt, who was resting, and spouse and explained role and spouse confirms that pt was recently discharged from [facility] in early Nov 2019 after scheduled surgery and was able to safely d/c home with no needs. Denies any hx of HH or SNF and spouse is pt's DPOA. Spouse states that pt is mostly independent with ADL's at baseline and ambulates short distances without need for assist. Spouse has been trying to keep the pt somewhat active for short distances like going to the mailbox, filling the bird feeders outside with her help, going to the store, etc.. They live in a one story house with one small step to enter. Pt has been using the recommended bone stimulator since his surgery and has made his follow up appointments and is not currently established with outpt PT. SW discussed HH services and frequencies in case pt is below baseline at d/c and spouse is agreeable if HH needed but also aware that outpt appointments help to keep the pt active and stimulated. Spouse now aware of the need for fluids to help with pt's constipation. Plan: SW to follow closely tomorrow to determine if pt will be safe for d/c home with spouse assist when medically stable and any further identified discharge planning needs. MARLEY Brasher Discharge Planning/Care Management CM Discharge Assessment Start: 12/31/19 14:25 Freq: Status: Active Protocol: Document 12/31/19 14:26 BF (Rec: 12/31/19 14:29 BF [id number]) Discharge Planning Assessment Assigned Naturopath MARLEY Leonard DPOA/Assigned Designee Name Spouse Eliane Contact Information [phone] Advance Directives? Yes Advance Directives on File Yes History Provided By Significant Other,Medical Record Has Patient been admitted in last 30 No days? Comment Discharged from [facility] barely over a month ago after scheduled surgery Prior Living Arrangements House Household Members spouse Type of transporation used prior to Relies on Others admit Comment Spouse drives Independent with ADL's Yes: mostly Is patient alert and oriented? Yes Needs Assistance With Managing Medications,Home Chores / Shopping Caregiver for Another No Comment Home, rule out HH Barriers to Discharge No Discharge Plan Home Transportation Arrangement Family Referrals Initiated None needed Whiteboard Updated in Patient Room with Yes name and ext. # of Naturopath Review Status In Process Please Provide Date Initial DC 12/31/19 Assessment Was Performed Next Review Type Continued Stay Review
--- NOTE | 2019-12-31 14:51 | PC.NURSE ---
LOC/Nutrition: Pt mostly non responsive. Will say no or yes otherwise sentences don't make sense. This morning was pointing at things in room and he was pointing when his got here, poss he maybe having some visual hallucinations at that time, he was trying to say something but was unable to articulate what it was. Globally disoriented. Knows name when called but that was it. Sleepy this am. This afternoon he does seem better, more awake appearing, has his glasses on. watching tv. Asking things like whats that? No longer pointing as if he sees something in the room. However still refuses to eat. This am said No, NO, NO!! clenched teeth and wouldnt take anything. Would not eat for at lunch but is taking some fluids for her. Given info on hyponatremia to . called and is aware pt hasn't eaten today or taken anything orally. Also notified of open areas on buttock. Pt is scheduled to see Dr. Zaidi on nds, Dr. Scott will eval later. Cont with POC.
[2019-12-31 16:34] LABS: Sodium 126 mmol/L (137-145)
[2019-12-31 16:35] LABS: Blood Urea Nitrogen 14 mg/dL (9-20); Calcium 8.1 mg/dL (8.4-10.2); Carbon Dioxide 35 mmol/L (22-32); Chloride 79 mmol/L (98-107); Estimated Glomerular Filt Rate > 60.0 mL/min (>60); Glucose 151 mg/dL (80-110); HEMOLYSIS < 15 (0-50); Potassium 3.4 mmol/L (3.4-5.1)
[2019-12-31 16:43] LABS: Osmolality Urine 476
--- NOTE | 2019-12-31 17:20 | P.PN_ITS ---
Subjective Subjective Date Patient Seen: 12/31/19 Time Patient Seen: 17:21 Interval history: Discussed patient care with afternoon. She says he has had a decline over the past 3 weeks. But he has definitely helped little bit worse today than he has been over the past few days mental status speech bowling. Not really eating this afternoon or taking medication. His tried to help him eating a sandwich. Provided normal saline 3% 100 cc is afternoon. And he is on 200 cc of regular normal saline. Urinary catheter was placed. Patient did have a significant urinary obstruction. For better fluid electrolyte management. Patient's vital signs have been fairly stable other than a little hypertensive Exam Vital Signs (past 8 hours): - 12/31/19 12:00 12/31/19 16:00 Temperature 98 F 97.1 F L Pulse Rate 88 83 Respiratory Rate 18 22 Blood Pressure 156/78 H 161/80 H Pulse Oximetry 98 97 Oxygen Delivery Method Room Air Oxygen Flow Rate 0 Narrative Exam Narrative: Physical exam unchanged Objective Labs Result Diagrams: 12/31/19 05:25 12/31/19 16:14 Labs: Laboratory Results - last 24 hr 12/30/19 12/31/19 12/31/19 14:04 05:25 05:25 WBC 9.7 RBC 3.85 L Hgb 12.9 L Hct 36.1 L MCV 93.8 MCH 33.4 MCHC 35.7 RDW 12.5 Plt Count 348 Neut % (Auto) 81.1 H Lymph % (Auto) 11.6 L [place] % (Auto) 6.6 Eos % (Auto) 0.2 L Baso % (Auto) 0.5 Neut # (Auto) 7900 H Lymph # (Auto) 1100 [place] # (Auto) 600 Eos # (Auto) 0 Baso # (Auto) 100 Sodium 123 L Potassium 3.7 Chloride 76 L* Carbon Dioxide 36 H BUN 16 Creatinine 0.50 L Estimated GFR > 60.0 BUN/Creatinine Ratio 32.0 H Glucose 142 H Calcium 8.4 Triglycerides Cholesterol LDL Cholesterol, Calc HDL Cholesterol TSH Urine Osmolality Ur Random Sodium 34 12/31/19 12/31/19 12/31/19 05:25 05:25 08:29 WBC RBC Hgb Hct MCV MCH MCHC RDW Plt Count Neut % (Auto) Lymph % (Auto) [place] % (Auto) Eos % (Auto) Baso % (Auto) Neut # (Auto) Lymph # (Auto) [place] # (Auto) Eos # (Auto) Baso # (Auto) Sodium Potassium Chloride Carbon Dioxide BUN Creatinine Estimated GFR BUN/Creatinine Ratio Glucose Calcium Triglycerides 136 Cholesterol 115 L LDL Cholesterol, Calc 36 HDL Cholesterol 52 TSH 1.15 Urine Osmolality 476 Ur Random Sodium 12/31/19 16:14 WBC RBC Hgb Hct MCV MCH MCHC RDW Plt Count Neut % (Auto) Lymph % (Auto) [place] % (Auto) Eos % (Auto) Baso % (Auto) Neut # (Auto) Lymph # (Auto) [place] # (Auto) Eos # (Auto) Baso # (Auto) Sodium 126 L Potassium 3.4 Chloride 79 L Carbon Dioxide 35 H BUN 14 Creatinine 0.40 L Estimated GFR > 60.0 BUN/Creatinine Ratio 35.0 H Glucose 151 H Calcium 8.1 L Triglycerides Cholesterol LDL Cholesterol, Calc HDL Cholesterol TSH Urine Osmolality Ur Random Sodium Assessment & Plan Assessment & Plan narrative: Moderate hyponatremia acute with mental status changes Metabolic encephalopathy due to above. Re-evaluation again this evening. Sodium levels gone up 3 points which is great. Patient still has mental status fluctuations in changes probably due to his hyponatremia. Potential sources or yet unrevealing. Potentially due to significant constipation than diarrhea which she has been working through. Medication related to hydrochlorothiazide. Cannot rule out adrenal gland problems such as SIDH cortisol testing will be done this morning. Urine and sodium osmolality tests were reviewed. Proceed with another 100 cc 3% normal saline boluses evening. Quality VTE Deep Vein Thrombosis/Pulmonary Embolism Present on Admission: No
[2019-12-31] MEDS: AMITRIPTYLINE 25 MG TABLET 50 MG PO (17:41)
[2019-12-31] MEDS: METFORMIN HCL 500 MG TABLET 1000 MG PO (17:44)
[2019-12-31] MEDS: carBAMazepine XR 100 MG TAB 200 MG PO (21:18)
[2019-12-31] MEDS: carvediloL 25 MG TABLET PO (21:19)
[2019-12-31] MEDS: LOSARTAN 50 MG TABLET PO (21:19)
[2019-12-31] MEDS: ATORVASTATIN 20 MG TABLET PO (21:19)
--- NOTE | 2019-12-31 22:21 | PC.NURSE ---
Evening note: Delano dozing intermittently tonight. VS stable, RA oxygen 94-96% Repeat serum sodium result 126, Dr Scott here to see patient, gave new orders for another 3% NS 100 ml bolus & after that to reduce patient's NS IVF rate to 150 ml/hour. Bolus complete, IV infusing as ordered. also ordered free water restriction of no more than 1200/24 hours, order entered with shift allotments of 600/400/200. Patient's reported that patient's hands looked puffy, when assessed I found skin intact, hands do not appear swollen to me. RFA with allevyn leaking sero-sang on linens/gown. Skin tear cleaned with NS and covered with new allevyn drsg. RFA skin tear is rather large, small 2nd spot proximal is not open or bleeding. Patient tolerating bites of food earlier, refused his meal tray. Tolerating sips of water. When 2100 meds due I sat patient up in bed, lid/straw removed for safety. Patient able to give self a drink of water with no coughing/choking. When he tried to swallow pill with water he started gagging, able to clear throat at that point. He stuck tongue out so I could see one small pill still on tongue. When he gave himself 2nd drink of water, he drank a large amt of water, coughed a couple times, then his face turned red and he gasped for air. As he gasped I pulled him more forward, after few seconds he was able to breathe, able to clear own throat. Tears observed in eyes, I stayed with him for a few minutes to make sure he was OK. Able to answer yes/no questions. When asked if he knew where he was he was non-verbal. Closed eyes, now dozing again.
[2020-01-01] VITALS (9 sets, daily range): BP systolic 126–175; BP diastolic 68–113; PULSE 81–91; RESP 18–24; TEMP 36–37.4; O2SAT 93–98
[2020-01-01] MEDS: SODIUM CHLORIDE 0.9% 1,000 ML 150 ML IV (04:07)
[2020-01-01 06:55] LABS: BUN Creatinine Ratio 27.5 (6-22); Blood Urea Nitrogen 11 mg/dL (9-20); Calcium 7.7 mg/dL (8.4-10.2); Carbon Dioxide 32 mmol/L (22-32); Chloride 84 mmol/L (98-107); Estimated Glomerular Filt Rate > 60.0 mL/min (>60); Glucose 126 mg/dL (80-110); HEMOLYSIS < 15 (0-50); Potassium 3.2 mmol/L (3.4-5.1); Sodium 128 mmol/L (137-145)
[2020-01-01 07:26] LABS: Cortisol AM (Before 10AM) 18.1 ug/dL (4.46-22.7)
--- NOTE | 2020-01-01 08:16 | P.PN_ITS ---
Subjective Subjective Date Patient Seen: 01/01/20 Time Patient Seen: 07:16 Interval history: Patient seen and evaluated this morning. Did well yesterday. Still quite weak. Patient is having some improvement in his speech. Understanding. Although did not appearing to be mentally back to baseline as per discussion with yesterday. Still having some difficulty with poor intake. Mild increased work of breathing apparent when evaluating him this morning. Has some mild edema. He also has some skin bruising and breakdown. Exam Vital Signs (past 8 hours): - 01/01/20 00:33 01/01/20 03:52 Temperature 97.0 F L 96.8 F L Pulse Rate 81 83 Respiratory Rate 22 22 Blood Pressure 145/75 H 156/79 H Pulse Oximetry 96 97 Oxygen Delivery Method Room Air Oxygen Flow Rate 0 Narrative Exam Narrative: Gen.: Alert. Knows his name. He knows he is in the hospital. Improved HEENT: Pupils equal round and reactive or mucosa is moist neck is supple Cardio: S1-S2 systolic murmur present Respiratory: Lungs showed mild increased work of breathing compared to yesterday. Some diffuse fine crackles Abdomen: Soft nontender no rebound or guarding Extremities: Full range of motion some edema at the lower extremities Objective Labs Result Diagrams: 12/31/19 05:25 01/01/20 06:28 Labs: Laboratory Results - last 24 hr 12/31/19 12/31/19 12/31/19 05:25 05:25 08:29 Sodium Potassium Chloride Carbon Dioxide BUN Creatinine Estimated GFR BUN/Creatinine Ratio Glucose Calcium Triglycerides 136 Cholesterol 115 L LDL Cholesterol, Calc 36 HDL Cholesterol 52 TSH 1.15 Cortisol AM Sample Urine Osmolality 476 12/31/19 01/01/20 01/01/20 16:14 06:28 06:28 Sodium 126 L 128 L Potassium 3.4 3.2 L Chloride 79 L 84 L Carbon Dioxide 35 H 32 BUN 14 11 Creatinine 0.40 L 0.40 L Estimated GFR > 60.0 > 60.0 BUN/Creatinine Ratio 35.0 H 27.5 H Glucose 151 H 126 H Calcium 8.1 L 7.7 L Triglycerides Cholesterol LDL Cholesterol, Calc HDL Cholesterol TSH Cortisol AM Sample 18.1 Urine Osmolality Assessment & Plan Assessment & Plan narrative: Acute moderate hyponatremia with neurological deficits. Patient with the confusion. Disorientation. Slurring of speech. Mild improvement of his condition this morning. Sodium level is also improving slowly which we would like. Patient has a little bit of fine crackles on exam and he has gotten lots of fluid he has gait having good urine output. Will decrease is normal saline no longer doing 3% saline boluses and we will provide Lasix to reduce his amount of free water. Continue to monitor closely his sodium level. Acute metabolic encephalopathy due to hyponatremia. Still present. Albeit improving slowly. Acute hypokalemia. Potassium replacement today. IV and oral will be provided. Cystic lesion in his buttock area. I guess he had an appointment with the surgeon this week. It is open. He is getting local wound care for this does not appear to be grossly infected. Constipation. Patient with significant constipation I guess patient had normal bowel movements 3+ in the emergency room yesterday after treatment for this. Patient has been on narcotics since the neck surgery. Will monitor his bowel status here. Coronary artery disease with hypertension and hyperlipidemia. He will be placed back on his medications for his heart blood pressure and cholesterol. Blood pressure is running a little bit high today. We will provide oral antihypertensive medication. BPH history. Patient has a Pan catheter in at this point to help monitor fluid electrolyte status. To prevent urinary obstruction with all the fluids and diuresis. Type 2 diabetes. Patient is on metformin at home. His has normal kidney function. Continue with his metformin Accu-Cheks and blood sugar moderately in [place] . Disposition and plan. Patient still needs inpatient. Continue with the sodium monitoring electrolyte monitoring. Mental status changes. Continue hospitaliz ation for the next couple of days. Quality VTE Deep Vein Thrombosis/Pulmonary Embolism Present on Admission: No
[2020-01-01] MEDS: POTASSIUM CHLORIDE 20 MEQ/15 ML UDC PO ×2 (09:16→17:00)
[2020-01-01] MEDS: FUROSEMIDE 40 MG/4 ML VIAL IV ×2 (09:17→16:57)
[2020-01-01] MEDS: METFORMIN HCL 500 MG TABLET 1000 MG PO (09:17)
[2020-01-01] MEDS: ENOXAPARIN 40 MG/0.4 ML SYRINGE SUBCUT (09:17)
[2020-01-01] MEDS: ASPIRIN EC 81 MG TABLET PO (09:18)
[2020-01-01] MEDS: LOSARTAN 50 MG TABLET PO ×2 (09:18→21:10)
[2020-01-01] MEDS: AMLODIPINE 5 MG TABLET PO (09:18)
[2020-01-01] MEDS: CITALOPRAM 20 MG TABLET PO (09:18)
[2020-01-01] MEDS: carBAMazepine XR 100 MG TAB 200 MG PO ×2 (09:19→21:10)
[2020-01-01] MEDS: FINASTERIDE 5 MG TABLET PO (09:19)
[2020-01-01] MEDS: NITROGLYCERIN 0.4 MG PATCH TOP (09:19)
[2020-01-01] MEDS: POTASSIUM CHLORIDE 60 MEQ in SODIUM CHLORIDE 0.9% 500 ML 88.333 ML IV (09:20)
[2020-01-01] MEDS: carvediloL 25 MG TABLET PO ×2 (09:48→21:10)
--- NOTE | 2020-01-01 11:16 | CM.DPC ---
DCP Cont: Per MD, pt continues to be weak, have some intake and swallow issues, and increased confusion and is not stable for d/c home yet today. PT/ST have been ordered and pending. Per RN, pt had struggled with coughing after trying to take p.o. meds. Plan: SW to follow closely after PT/ST initial eval and recommendations to determine if pt will still be safe for return home with spouse assist vs higher level of care (SNF vs HH). MARLEY Brasher
[2020-01-01] MEDS: FENOFIBRATE 160 MG TABLET PO (12:59)
[2020-01-01] MEDS: INSULIN ASPART 100 UNIT/ML INSULN PEN SUBCUT (12:59)
--- NOTE | 2020-01-01 15:54 | SLP.IPNOTE ---
GREENHOUSE LABORER went to see pt from 12:40-12:55. Pt was seeing sitting upright in bed eating lunch, which consisted of sausage, scrambled eggs, and a smoothie. Pt's was present in the room as well. Pt's reported that pt's voice is sounding better and she felt he was having an easier time eating/swallowing compared to when he was first admitted. Pt appeared groggy and had difficulty answered questions (e.g., How are you feeling?). Pt did not touch much of his food; over 60% remained on his tray. Nurse reported he did not eat breakfast. GREENHOUSE LABORER observed pt take a bite of egg, which resulted in oral residue. Upon leaving room, GREENHOUSE LABORER observed pt take 2 large sips of smoothie from straw which resulted in immediate coughing. Cough appeared weak. GREENHOUSE LABORER spoke to about coming back later in the afternoon to complete a bedside swallow evaluation.
--- NOTE | 2020-01-01 16:20 | PT.IIE ---
Current Diagnoses Hypo-osmolality and hyponatremia (12/30/19) Surgical History (Last Reviewed 12/31/19 @ 09:03 by Kannan Scott MD) Anesthesia (Resolved) H/O cervical spine surgery (Acute) Hx of arthroscopy of left knee (Acute) S/P CABG x 2 (Acute 06/29/02) Status post cholecystectomy (~1984) Status post hemorrhoidectomy (~1994) Status post laminectomy (~2015) Medical History (Last Reviewed 12/31/19 @ 09:03 by Kannan Scott MD) Carpal tunnel syndrome (Chronic ~1982) Chicken pox (Resolved) Chronic back pain (Chronic ~2014) Coronary artery disease (Chronic ~2001) Diabetes mellitus (Chronic ~1997) Gout (Chronic) Hearing loss (Chronic) Hemorrhoid (Chronic) Kidney stones (Chronic) Peripheral vascular disease (Chronic ~1989) Precancerous skin lesion (Chronic) Rheumatoid arthritis (Chronic) Shoulder pain (Chronic) Sleep apnea (Chronic ~1989) Tinnitus (Chronic) Vertigo (Chronic ~2011) Physical Therapy Inpatient Evaluation/Re-Eval M1 PT/OT-IP Prior Functional Status Start: 01/01/20 17:24 Freq: NEEDED Status: Active Protocol: Document 01/01/20 16:20 DLM (Rec: 01/01/20 17:40 DL [id number]) Medical Review Prior Functional Status Medical History Reviewed Yes Communication hard of hearing, decreased STM Mobility and Gait ambulating with FWW before this admission, before Nov 2019 sx he was ambulating with one hiking stick, his has been helping him sit-stand at home for about 3 weeks Activities of Daily Living and IADL's needing assist with ADLs since Nov surgery Prior Functional Level (Other details) he often sleeps in recliner at home, does not tolerate lying flat due to difficulty breathing Social History Household Members spouse Living Arrangements House Number of Floors (Floors) One Floor Number of Stairs To Enter/Railing? 1 step Home Environment Standard Height Toilet,Walk in Shower,Built-In Shower Seat Home Equipment Front Wheel Walker,Hand Held Shower,Grab Bars In Shower Employment Status Retired Additional Social History Comment swallow difficulties since neck surgery, pt has difficulty talking per his M2 PT-IP Current Condition Start: 01/01/20 17:24 Freq: NEEDED Status: Active Protocol: Document 01/01/20 16:20 DLM (Rec: 01/01/20 17:40 DL [id number]) Physical Therapy Current Condition Current Condition Evaluation Date 01/01/20 Treatment Diagnosis confusion, weakness, constipation Onset Date 12/30/19 Precautions Other Precautions can not lie flat due to difficulty breathing M3 PT-IP Subjective Start: 01/01/20 17:24 Freq: NEEDED Status: Active Protocol: Document 01/01/20 16:20 DLM (Rec: 01/01/20 17:40 DL [id number]) Subjective Physical Therapy Visit Type Type Initial Evaluation Visit Start Time 15:55 Visit Stop Time 16:20 Total Visit Minutes 25 Number of DOG RAISER Visits 0 Physical Therapy Visit Comments Patient Comments His reports he is doing better Patient Goals Patient wants to go home Therapy Pain Assessment Pain Present Pain Present Denied Pain M4 PT-IP Mobility and Gait Start: 01/01/20 17:24 Freq: NEEDED Status: Active Protocol: Document 01/01/20 16:20 DLM (Rec: 01/01/20 17:40 DL [id number]) PT-Transfer Assessment Sit to and From Stand Sit to and from Stand Minimal Assistance,Moderate Assistance Equipment Transfer Assistive Device Gait Belt,Front Wheeled Walker Transfers Transfer Destination Chair Transfer Technique Stand Step Pivot Transfer Ability Level of Assist Contact Guard Assistance, Minimal Assistance Comments Mobility Comments pt up in recliner and does not want to go back to bed, pt is very limited in answering questions or attending to conversation, his does most of the talking today Gait Assessment Gait Gait Assistance Required: Contact Guard Assist Distance (Feet) 120 Assistive Devices Assistive Device Gait Belt,Front Wheeled Walker Gait Deviations General Gait Pattern Wide Based Gait Factors Limiting Gait Function Factors Limiting Gait Function Decreased Activity Tolerance, Decreased Strength,Difficulty Following Directions,Poor Balance Comments Gait Comments when close to the elevator pt wanted to leave the floor by taking the elevator PT-Balance Assessment Sitting Balance and Reactions Static Sitting Balance Ability Good Dynamic Sitting Balance Ability Fair Standing Balance and Reactions Static Standing Balance Ability Fair Dynamic Standing Balance Ability Fair Device Used FWW M5 PT-IP Objective Assessments Start: 01/01/20 17:24 Freq: NEEDED Status: Active Protocol: Document 01/01/20 16:20 DLM (Rec: 01/01/20 17:40 DL [id number]) Orientation Orientation/Cognition Level of Alertness Alert Orientation Name Safety Awareness Decreased Safety Awareness Memory Description Short Term Impaired Comments he recognizes his , he knows he wants to leave and go home, could not get him to answer orientation questions, pt attempts to pull at urinary catheter and needs to be redirected Gross Range of Motion Upper Extremity ROM Assessment Within Functional Limits Lower Extremity ROM Assessment Within Functional Limits Strength Upper Extremity Strength Assessment Bilaterally Impaired Lower Extremity Strength Assessment Bilaterally Impaired Ankle left drop foot can be seen during gait, pt has had this since 2016 Comments Strength Comments pt presents with generalized weakness, he is unable to participate in manual muscle testing Coordination Assessment Gross Coordination Gross Coordination Impaired Sensation Assessment Comments Sensation Comments unable to assess Muscle Tone Muscle Tone WNL Yes M7 PT-IP Assessment and Plan Start: 01/01/20 17:24 Freq: NEEDED Status: Active Protocol: Document 01/01/20 16:20 DLM (Rec: 01/01/20 17:40 DLM [id number]) PT Summary Assessment and Plan Potential Rehabilitation Potential Fair Status of Condition at Evaluation Evolving Summary Impairments Strength,Balance,Coordination, Cognition,Bed Mobility, Transfers,Gait,Activity Tolerance Goals Bed Mobility Goal Standby Assistance Transfer Goal Contact Guard Assistance,Front Wheeled Walker Gait Goal Standby Assistance,Contact Guard Assistance,Front Wheel Walker Gait Distance 150 feet Days to Meet Goals 3 Frequency of Treatment Frequency Of Treatment Once a Day Treatment Plan Physical Therapy Treatment Plan Bed Mobility Training,Transfer Training,Gait Training, Therapeutic Exercise,Balance Retraining,Discharge Planning, Neuromuscular Re-ed Recommendations To Nursing Amount of Assist Needed 1 Person Assist Discharge Recommendations PT Discharge Recommendations Home with 07/06 Assist,Home Health Transportation Needs at Discharge Private Vehicle
--- NOTE | 2020-01-01 16:25 | DIET.PN ---
Dietary Progress Note Assessment: Mr. Lobo is a 74-year-old with HX of diabetes who presented to the ED for abdominal pain and constipation for several days. On laboratory findings he was found to have low sodium. He recently had spinal surgery and has had poor PO's since. Pt was present during assessment and answered all questions. Pt did not engage in conversation. She reports 50# weight loss over the last 6-8 months and has noticed increasing weakness and loss of muscle mass. He has had difficulty ambulating and has a wound which was supposed to be looked at on Wednesday. She is unsure this will be an option now. She has been bringing in food she knows he likes, but he tends to only take a few bites. He was sipping on a blueberry smoothie during my assessment. His had several questions regarding nutrition supplements to support maintaining muscle mass without causing hyperglycemia. HT: 177.8cm WT: 86.6kg UBW: 104.8kg (08/03) %change: 17% BMI: 27.4 Labs: Na: 128 K: 3.2 Gluc: 142,151,126 MNA: 10 Herson: 12 PO's: 0% reported, few bites of eggs and smoothie noted Nutrition Diagnosis: Chronic severe malnutrition r/t lack of appetite, disinterest in meeting nutrient needs aeb energy intake <75% EER >1 mo, GI symptoms (abdominal pain, constipation) >5 d, 17% weight loss in 5 mo, NFPE mod loss of shoulder, thigh muscle mass. Interventions: 1. Discussed calorie/protein goals for preventing loss of lean body mass. 2. Discussed supplement options and provided handouts on ONS ensure max for high protein w/glucose control. 3. Recommended adding protein supplement to smoothies at home. agreeable. 4. Discussed benefits of Richard for wound healing. Provided handouts on use. Diet Order: General; fluid restriction (1200 ml) EER: 2200 marycarmen @ 30 marycarmen/kg IBW; Pro 95-109g @1.3-1.5g/kg IBW Monitoring/Evaluations: Weight, PO intake, will provide high pro smoothies w/ lunch per pt request
--- NOTE | 2020-01-01 16:30 | ST.IPCSEOM ---
Visit Care Team Role Provider Type PEDRITO Turner Emergency Provider Advanced Gate Operator Referring Provider Specialty: Address: [address] [place] [address], [id number] Email: Jan Slater MD Attending Provider Physician Primary Care Provider Specialty: Family Practice Address: [address] [place] [address], [id number] Email: [email or web address] Kannan Scott MD Admit Provider Physician Other Providers Specialty: Family Practice Address: [address] [place] [address], [id number] Email: [email or web address] Current Diagnoses Hypo-osmolality and hyponatremia (12/30/19) Past Medical History (Last Reviewed 12/31/19 @ 09:03 by Kannan Scott MD) Carpal tunnel syndrome (Chronic Medical ~1982) Chicken pox (Resolved Medical) 1949's Chronic back pain (Chronic Medical ~2014) Coronary artery disease (Chronic Medical ~2001) Diabetes mellitus (Chronic Medical ~1997) Gout (Chronic Medical) 1979's Hearing loss (Chronic Medical) 1959's Hemorrhoid (Chronic Medical) 1979's Kidney stones (Chronic Medical) 1979's Peripheral vascular disease (Chronic Medical ~1989) Precancerous skin lesion (Chronic Medical) 1989' Rheumatoid arthritis (Chronic Medical) 1989' Shoulder pain (Chronic Medical) 1989' Sleep apnea (Chronic Medical ~1989) states no longer uses CPAP w/weight loss, change in climate Tinnitus (Chronic Medical) 1959' Vertigo (Chronic Medical ~2011) Speech-Language Pathology Swallow Evaluation MARINE SERVICES TECHNICIAN Clinical Swallow Evaluation Start: 01/01/20 16:02 Freq: Status: Active Protocol: Document 01/01/20 16:02 MG (Rec: 01/01/20 16:29 MG [id number]) Clinical Swallow Evaluation Session Time Visit Start Time 14:00 Visit Stop Time 14:35 Total Visit Minutes 35 Visit Information Visit Number 1 Setting Assessment Location Acute Care Visit Type Note Type Initial Evaluation Next Note Type Next Note Type Re-Evaluation Patient Information Identification Type Name,ID Wristband History 74-year-old who is a very poor historian admitted on 2019 to ER. Pt had some confusion this morning. Pt knows his name knows that he lives in [place], however was unsure where he is at. His speech is a little bit sluggish; he is hard to understand at time. Patient was brought to his to the emergency department for abdominal pain and constipation. On laboratory findings he was found to have low sodium. He was admitted for further evaluation and treatment of his hyponatremia. Patient's history is as followed obtain from in chart. Over the last 6 months patient has had increasing problems after he had surgery worries had just increasing weakness. Not really wanting to get up and move. He has also had some weight loss and has been a little bit more lethargic. Pt had a surgery by Dr. Simms on 11/23/2019 C5-7 ACDF with cages and is not currently on narcotic pain medication but takes Tylenol as needed. Subjective Observations Pt was seen sitting upright in chair next to bedside with present in the room. Pt appeared tired, as noted by constant closed eyes and lack of response to MARINE SERVICES TECHNICIAN or pt's . Pt wanted to lay back to sleep in a reclined position. appeared very attentive to pt's needs and requests and helped pt complete various tasks (e.g., give cup to pt to help him take a sip of soda). Pt did not follow directions given from the MARINE SERVICES TECHNICIAN or from pt' s and refused at times to participate in evaluation procedures. Pt was relatively quiet and spoke in 1-3 words per utterance. At times, pt was difficult to understand and would not follow directions or answer questions appropriately. Evaluation Liquids Trialed Thin,[place] Solids Trialed Puree Administration Type Cup Single Sip,Straw,Dependent Feeding Oral Impairment Mildly Impaired Oral Strategies Upright at 90 degrees, Controlled Bite/Sip Size Oral Phase Comments Pt refused to eat more food or try ice chips from MARINE SERVICES TECHNICIAN as well as refuse to participate in an OME to assess oral motor integrity. Upon earlier observation at lunch, MARINE SERVICES TECHNICIAN noted oral residue in mouth from scrambled egg along the tongue. Pt's tongue appeared weakened as he could not stick it out far to copy MARINE SERVICES TECHNICIAN. The process of mastication was not observed as pt refused to eat food. Pharyngeal Impairment Mildly Impaired Pharyngeal Strategies Sitting Upright (90 deg),Chin Tuck,Double Swallow,Small Bites and Sips Pharyngeal Phase Comments Upon laryngeal palpation, MARINE SERVICES TECHNICIAN noted hyolaryngeal movement and weakened anterior excursion of the hyoid. Pt's swallows are audible. Pt drank from cup and from a straw. When MARINE SERVICES TECHNICIAN controlled volume of liquid, pt did not show overt s/sx or aspiration. When pt took consecutive sips or large sips from straw, pt demonstrated immediate cough. Cough was noted to be weak. Pt was fatigued and continuously closed eyes and fell asleep. Cognitive testing was not complete, but is recommended. When straw was not bent and pt was prompted to take a small sip of thin liquid, no overt s /sx of aspiration occurred. MARINE SERVICES TECHNICIAN and pt's discussed the chin down maneuver. MARINE SERVICES TECHNICIAN attempted it with pt but he could not complete on his own. No overt s/sx of aspiration was noted when pt took single sips of thin and nectar from cup. Pt appeared to spontaneously double swallow after all trials. Findings Dysphagia Type Oropharyngeal dysphagia Rehabilitation Potential Fair Impressions Due to pt's refusal and overall fatigue at the time of this evaluation, a new evaluation should be attempted when pt is more awake and alert. MARINE SERVICES TECHNICIAN provided education and information about the swallowing mechanism to pt and his . They did not have any questions. Pt may be fatiguing due to the process of mastication, therefore this MARINE SERVICES TECHNICIAN recommends a softer diet which involves less mastication in hopes the pt will eat more and not fatigue quickly. Diet Recommendations Liquids Order Thin Diet Order Dysphagia Mechanical Medication Recommendations As Tolerated Additional Dietary Needs Single Sips Aspiration Precautions Recommended Precautions Upright at 90 Degrees,Frequent Rest Periods,Small Bites/Sips ,Chin Tuck,Double Swallow, Check for Pocketing Treatment Plan Placement Recommendations after Outpatient Therapy Discharge Appropriate for Therapy Yes Therapy Recommendations MARINE SERVICES TECHNICIAN team to follow up and provide and attempt to complete a full swallow evaluation in order to assess current function and recommend least restrictive diet. Cognitive testing Dysphagia Goals Pt will tolerate least restrictive diet and not show overt s/sx of aspiration. MARINE SERVICES TECHNICIAN Follow Up x1
--- NOTE | 2020-01-01 16:49 | PC.NURSE ---
Addendum entered by Kathryn Rojas R.N. 01/01/20 18:29: lube technician had difficulty finding venous access, after heat packs applied for 15 minutes, able to draw from left wrist. I did not page Dr Scott with sodium result as he is not the on-call Dr. Dr Scott called me for results, aware that Sodium is 127 and Potassium is 4.1. Also aware patient not eating more than few bites of food and refused to finish oral potassium syrup even after multiple attempts by his instructing him to drink it. Dr Scott gave no new orders, he said to continue treatment coarse. Delano refused meal tray, asking for leta's bbq, I asked kitchen to bring up sandwich makings with bbq sauce so we could make him a chicken sandwich. Ate a couple bites, then left for the night. Patient then wrapped each half sandwich up in multiple pieces of toilet paper, handed to me and said throw that out. I encouraged PO intake, discussed importance of calories & protein. Protein drink provided on his bedside table. Disoriented to details, when I asked if he knew where he is he was non-verbal but nodded head up & down. Saying few words, speech delayed, word finding difficulty. CIGARETTE MAKING EXAMINER assisted him to transfer from recliner back to bed. Fall precautions in place & alarm active for safety. Original Note: Evening note: Dr Scott called to make sure that lab had drawn 1600 BMP. No results pending in computer, I called down to lab to ask them to draw this STAT. lube technician in room now to draw blood.
[2020-01-01 17:29] LABS: Blood Urea Nitrogen 12 mg/dL (9-20); Calcium 7.6 mg/dL (8.4-10.2); Carbon Dioxide 31 mmol/L (22-32); Chloride 85 mmol/L (98-107); Estimated Glomerular Filt Rate > 60.0 mL/min (>60); Glucose 146 mg/dL (80-110); HEMOLYSIS < 15 (0-50); Potassium 4.1 mmol/L (3.4-5.1); Sodium 127 mmol/L (137-145)
[2020-01-01] MEDS: ATORVASTATIN 20 MG TABLET PO (21:10)
[2020-01-01] MEDS: AMITRIPTYLINE 25 MG TABLET 50 MG PO (21:10)
[2020-01-02] VITALS (9 sets, daily range): BP systolic 122–154; BP diastolic 71–90; PULSE 83–94; RESP 16–22; TEMP 36–36.7; O2SAT 93–98
[2020-01-02] MEDS: FUROSEMIDE 40 MG/4 ML VIAL IV ×4 (00:38→23:50)
[2020-01-02] MEDS: SODIUM CHLORIDE 0.9% 1,000 ML 100 ML IV ×2 (05:37→20:17)
[2020-01-02 06:09] LABS: Blood Urea Nitrogen 10 mg/dL (9-20); Calcium 7.7 mg/dL (8.4-10.2); Carbon Dioxide 39 mmol/L (22-32); Chloride 79 mmol/L (98-107); Estimated Glomerular Filt Rate > 60.0 mL/min (>60); Glucose 150 mg/dL (80-110); HEMOLYSIS < 15 (0-50); Potassium 3.2 mmol/L (3.4-5.1); Sodium 128 mmol/L (137-145)
--- NOTE | 2020-01-02 07:51 | PM.PN.1 ---
Subjective Subjective Date Patient Seen: 01/02/20 Time Patient Seen: 07:52 Interval history: Patient seen and evaluated at bedside. Patient is sitting at the side of the bed helped him set up today. Patient is impulsive and still has a little bit of delirium. Fall simple commands still unsure of date and where he has. Definitely not at baseline from what I can gather from his . Reviewed again today through his medication recent laboratory tests. Did examine his backside today. Patient has small little cyst ulcer. There is no drainage no significant signs of cellulitis or infection. Did want to eat much yesterday. Although with help from his and assistance from the nurses did do a little bit of oral intake. Exam Vital Signs (past 8 hours): - 01/02/20 00:25 01/02/20 03:00 Temperature 98.1 F 97.9 F Pulse Rate 83 84 Respiratory Rate 22 20 Blood Pressure 145/71 H 150/80 H Pulse Oximetry 98 94 Oxygen Delivery Method Room Air Oxygen Flow Rate 0 Narrative Exam Narrative: Gen.: Alert impulsive has signs of delirium does not know where he is or the day of the week. HEENT: Pupils equal round and reactive or mucosa is moist neck is supple Cardio: S1-S2 regular rate and rhythm systolic murmur present Respiratory: Lungs are clear compared to yesterday normal respiratory effort Abdomen: Soft nontender no rebound or guarding some mild obesity. Extremities: No significant edema Neurologic: No focal neurological deficits. Some generalized weakness Objective Labs Result Diagrams: 12/31/19 05:25 01/02/20 05:45 Labs: Laboratory Results - last 24 hr 01/01/20 01/02/20 17:08 05:45 Sodium 127 L 128 L Potassium 4.1 3.2 L Chloride 85 L 79 L Carbon Dioxide 31 39 H BUN 12 10 Creatinine 0.40 L 0.40 L Estimated GFR > 60.0 > 60.0 BUN/Creatinine Ratio 30.0 H 25.0 H Glucose 146 H 150 H Calcium 7.6 L 7.7 L Assessment & Plan Assessment & Plan narrative: Acute moderate hyponatremia with neurological deficits. Sodium now 128.. 3% saline yesterday. Getting normal saline IV fluids with some Lasix IV and small aliquots. Sodium level did not really change for the last 12-24 hours. Will continue with this today to see if we can get his sodium level increased. Cortisol level was drawn which was normal. Urine osmolality and urine sodium normal. Unsure etiology at this point. Stop his hydrochlorothiazide. Patient was initially having some diarrhea which may be contributing factor. Next possible etiologies are his combination of carbamazepine an SSRI which can cause a ACTH like response. Talked with his primary care physician in will stop both of those medications. Although the long-term results of hyponatremia we will not see today. Continue with improvement of his sodium today with free water loss with the normal saline and Lasix. Acute metabolic encephalopathy due to hyponatremia. Delusions today. Waxes and wanes worse at night. Continue to correct his sodium. Stop carbamazepine an SSRI. Although it looks like he has been on these for a little while this may help improve his sodium long-term. Acute hypokalemia. Continue with potassium replacement IV and oral today. Check magnesium and phosphorus. Cystic lesion in his buttock area. Re-evaluated today. Looks like it is just a small skin breakdown area. No ulcer. Dressing changes daily at this point. Does not need to see a surgeon. No signs of cellulitis Constipation. Patient with significant constipation I guess patient had normal bowel movements 3+ in the emergency room yesterday after treatment for this. Patient has been on narcotics since the neck surgery. Will monitor his bowel status here. Coronary artery disease with hypertension and hyperlipidemia. Continue with ongoing heart medication at this point. BPH history. Patient has a Pan catheter in at this point to help monitor fluid electrolyte status. To prevent urinary obstruction with all the fluids and diuresis. DC Pan catheter today. Type 2 diabetes. Patient is on metformin at home. His has normal kidney function. Continue with his metformin Accu-Cheks and blood sugar. Disposition and plan. Patient still needs inpatient. Continue with normal saline diuresis with Lasix at the same time monitor sodium level replace potassium. Stop carbamazepine an SSRI as this may cause hyponatremia previously stopped hydrochlorothiazide. Continue to need inpatient care. Patient will not being going home and will need retirement. Quality VTE Deep Vein Thrombosis/Pulmonary Embolism Present on Admission: No
[2020-01-02 08:21] LABS: Blood Urea Nitrogen 10 mg/dL (9-20); Calcium 7.5 mg/dL (8.4-10.2); Carbon Dioxide 35 mmol/L (22-32); Chloride 81 mmol/L (98-107); Estimated Glomerular Filt Rate > 60.0 mL/min (>60); Glucose 157 mg/dL (80-110); HEMOLYSIS < 15 (0-50); Potassium 3.3 mmol/L (3.4-5.1); Sodium 128 mmol/L (137-145)
[2020-01-02] MEDS: FINASTERIDE 5 MG TABLET PO (09:10)
[2020-01-02] MEDS: LOSARTAN 50 MG TABLET PO ×2 (09:10→20:18)
[2020-01-02] MEDS: carvediloL 25 MG TABLET PO ×2 (09:10→20:26)
[2020-01-02] MEDS: ASPIRIN EC 81 MG TABLET PO (09:10)
[2020-01-02] MEDS: METFORMIN HCL 500 MG TABLET 1000 MG PO ×2 (09:11→16:22)
[2020-01-02] MEDS: AMLODIPINE 5 MG TABLET PO (09:11)
[2020-01-02] MEDS: POTASSIUM CHLORIDE 20 MEQ/15 ML UDC PO ×3 (09:13→20:22)
[2020-01-02] MEDS: NITROGLYCERIN 0.4 MG PATCH TOP (09:13)
[2020-01-02] MEDS: ENOXAPARIN 40 MG/0.4 ML SYRINGE SUBCUT (09:14)
[2020-01-02] MEDS: INSULIN ASPART 100 UNIT/ML INSULN PEN SUBCUT ×3 (09:22→17:16)
[2020-01-02] MEDS: POTASSIUM CHLORIDE 60 MEQ in SODIUM CHLORIDE 0.9% 500 ML 88.333 ML IV (09:27)
--- NOTE | 2020-01-02 09:30 | ST.IPTN ---
Visit Care Team Role Provider Type PEDRITO Turner Emergency Provider Advanced Salon/Spa Manager Referring Provider Address: [address] [place] [address], [id number] Jan Slater MD Attending Provider Physician Primary Care Provider Address: [address] [place] [address], [place], [address] Kannan Scott MD Admit Provider Physician Other Providers Address: [address] [place] [address], [id number] ELEVATOR BUILDER Treatment Note ELEVATOR BUILDER Treatment Note Start: 01/01/20 16:02 Freq: Status: Active Protocol: Document 01/02/20 16:41 TLC (Rec: 01/02/20 17:03 TLC [id number]) Speech Pathology Treatment Note Session Time Visit Start Time 09:00 Visit Stop Time 09:30 Total Visit Minutes 30 General Information General Information Patient underwent ACDF surgery last month and has had some dysphagia since then. He was seen yesterday by ELEVATOR BUILDER who recommended thin liquids, dysphagia mechanical textures with implementation of the following strategies: Upright at 90 Degrees,Frequent Rest Periods,Small Bites,Chin Tuck, Double Swallow,Check for Pocketing Objective Short Term Goals Pt will tolerate least restrictive diet and not show overt s/sx of aspiration. Treatment Activities Observed patient during breakfast. He reports some pain when swallowing solid foods such as boiled eggs. Patient demonstrated slow rate and use of lingual sweep. He required prompts for liquid wash following observation of diffuse oral residue in the oral cavity. No overt s/x of aspiration observed; however swallow was audible which is not his baseline. He was responsive to cueing, but demonstrated slow processing time and needed occasional repetitions of directions. I returned later to discuss patient's dysphagia with his . She reports he experienced significant episodes of choking once discharged home following surgery last month. These have reportedly improved and she has worked on him not throwing his head back when he swallows and maintaining a neutral head position or trialing use of a chin tuck. She also reports he had difficulty coordinating swallowing and breathing, often taking loud inhales. He had a follow up with Dr. Simms's PA and was referred for an outpatient speech therapy evaluation which is scheduled for this Wednesday. We discussed potential for an MBS to assess pharyngeal swallow function s/p ACDF and to guide plan of care. Patient's is in agreement; however, at this time it is unknown whether or not this will be done as an inpatient during this stay or outpatient. Assessment Patient Response to Treatment Good Rehab Potential Good Impairments Identified Dysphagia Assessment of Improvement Patient continues to experience signs of dysphagia s/p ACDF last month. An MBS is recommended for further assessment. ELEVATOR BUILDER to discuss recommendations with nursing/ physician to determine if patient can have this done during this inpatient stay or if it should be scheduled as an outpatient once he discharges.
--- NOTE | 2020-01-02 12:24 | PT.IPTN ---
Current Diagnoses Hypo-osmolality and hyponatremia (12/30/19) Physical Therapy Treatment Note M2 PT-IP Current Condition Start: 01/01/20 17:24 Freq: NEEDED Status: Active Protocol: Document 01/01/20 16:20 DLM (Rec: 01/01/20 17:40 DLM [id number]) Physical Therapy Current Condition Current Condition Evaluation Date 01/01/20 Treatment Diagnosis confusion, weakness, constipation Onset Date 12/30/19 Precautions Other Precautions can not lie flat due to difficulty breathing M3 PT-IP Subjective Start: 01/01/20 17:24 Freq: NEEDED Status: Active Protocol: Document 01/02/20 11:48 NFW (Rec: 01/02/20 12:24 NFW [id number]) Subjective Physical Therapy Visit Type Type Treatment Note Visit Start Time 11:38 Visit Stop Time 12:01 Total Visit Minutes 23 Notes present during treatment and supportive. Number of LETTER CARRIER Visits 0 Physical Therapy Visit Comments Patient Comments Improved from yesterday. Patient Goals Eager to go home. Therapy Pain Assessment Pain Present Pain Present Denied Pain M4 PT-IP Mobility and Gait Start: 01/01/20 17:24 Freq: NEEDED Status: Active Protocol: Document 01/02/20 11:48 NFW (Rec: 01/02/20 12:24 NFW [id number]) PT-Bed Mobility Assessment Supine to Sit Supine to Sit Standby Assistance,1 Person Assistance Scooting Scooting to Edge of Bed Contact Guard Assistance PT-Transfer Assessment Sit to and From Stand Sit to and from Stand Minimal Assistance Equipment Transfer Assistive Device Gait Belt,Front Wheeled Walker Transfers Transfer Destination Bed,Chair Transfer Technique Stand Step Pivot Transfer Ability Level of Assist Contact Guard Assistance, Minimal Assistance Comments Mobility Comments Requires repetition in cuing for proper techniques up and down from bed/chair. As previous, does most of the answering of questions. Gait Assessment Gait Gait Assistance Required: Contact Guard Assist Distance (Feet) 200 Assistive Devices Assistive Device Gait Belt,Front Wheeled Walker Gait Deviations General Gait Pattern Flexed Trunk,Wide Based Gait Factors Limiting Gait Function Factors Limiting Gait Function Decreased Activity Tolerance, Decreased Strength,Difficulty Following Directions,Poor Balance Comments Gait Comments Walker adjusted to allow the patient to stand up straighter . PT-Balance Assessment Sitting Balance and Reactions Static Sitting Balance Ability Good Dynamic Sitting Balance Ability Good Standing Balance and Reactions Static Standing Balance Ability Good Dynamic Standing Balance Ability Fair Device Used FWW M5 PT-IP Objective Assessments Start: 01/01/20 17:24 Freq: NEEDED Status: Active Protocol: Document 01/02/20 11:48 NFW (Rec: 01/02/20 12:24 NFW [id number]) Orientation Orientation/Cognition Level of Alertness Alert Safety Awareness Decreased Safety Awareness Memory Description Short Term Impaired M7 PT-IP Assessment and Plan Start: 01/01/20 17:24 Freq: NEEDED Status: Active Protocol: Document 01/02/20 11:48 NFW (Rec: 01/02/20 12:24 NFW [id number]) PT Summary Assessment and Plan Potential Rehabilitation Potential Good Status of Condition at Evaluation Evolving Summary Impairments Strength,Balance,Coordination, Cognition,Bed Mobility, Transfers,Gait,Activity Tolerance Assessment Summary Pt requiring repetition with cuing. Increased walking distance this am. Continues to have decrease safety awareness. Pt left with chair alarm and call button at side . Pt. in room. Goals Bed Mobility Goal Standby Assistance Transfer Goal Contact Guard Assistance,Front Wheeled Walker Gait Goal Standby Assistance,Contact Guard Assistance,Front Wheel Walker Gait Distance 250 Days to Meet Goals 2 Frequency of Treatment Frequency Of Treatment Once a Day Treatment Plan Physical Therapy Treatment Plan Bed Mobility Training,Transfer Training,Gait Training, Therapeutic Exercise,Balance Retraining,Discharge Planning, Neuromuscular Re-ed Recommendations To Nursing Amount of Assist Needed 1 Person Assist Discharge Recommendations PT Discharge Recommendations Home with 07/06 Assist,Home Health
[2020-01-02] MEDS: FENOFIBRATE 160 MG TABLET PO (12:29)
--- NOTE | 2020-01-02 13:35 | CM.DPC ---
DCP Cont: Per MD, pt continues to have confusion and some concerns with swallow issues and ambulation. Per ST, first attempt pt was not able to participate much but they were able to assess today and determine just close monitoring of intake but no change. Per PT, pt ambulated well and recommending home with 24/7 care from spouse and HH. SW met bedside with pt and spouse, pt was able to minimally participate in discussion and state he was feeling ready to d/c home, and SW discussed HH recommendation and HH services and frequency. Spouse continues to feel that pt will be able to safely d/c home without the need for HH and declined HH referral at this time. Plan: SW to follow closely for plan of pt d/c home with very supportive spouse and they decline HH. MARLEY Brasher
--- NOTE | 2020-01-02 15:49 | PC.NURSE ---
Day Shift- Pt confused this AM at 0800, after labs drawn, pt sat himself to side of bed performing bed dangle. Asking repeatedly for walker, hard to direct. When asking orientation questions, pt repeated I want my mother. Pt assisted back to bed with 3PA, HOB elevated high as pt prefers. High fall risk precautions in place, bed alarm/chair alarm used throughout shift. Pt became able to be directed throughout shift. Pt's Eliane came in around 1130 to visit. Brought pt's bone stimulator neck device from ortho from home, pt wears daily for 4 hours after his neck surgery back in beginning of November. Pt took his pills whole one at at time with water without difficulty. Speech in to see pt at the same time around breakfast. Urinary catheter removed at 0800 per verbal order by Dr. Scott at bedside. Pt voided X1 large inc in brief while ambulating with PT, brief changed by DRAFTER ELECTRICAL.
[2020-01-02] MEDS: ATORVASTATIN 20 MG TABLET PO (20:18)
[2020-01-02] MEDS: SENNOSIDES 8.6 MG TABLET 17.2 MG PO (20:18)
[2020-01-03] VITALS (11 sets, daily range): BP systolic 125–177; BP diastolic 51–87; PULSE 63–90; RESP 14–20; TEMP 36.3–37.1; O2SAT 90–98
[2020-01-03 06:29] LABS: BUN Creatinine Ratio 27.5 (6-22); Blood Urea Nitrogen 11 mg/dL (9-20); Calcium 7.5 mg/dL (8.4-10.2); Chloride 81 mmol/L (98-107); Estimated Glomerular Filt Rate > 60.0 mL/min (>60); Glucose 149 mg/dL (80-110); HEMOLYSIS < 15 (0-50); Potassium 3.3 mmol/L (3.4-5.1); Sodium 129 mmol/L (137-145)
[2020-01-03] MEDS: SODIUM CHLORIDE 0.9% 1,000 ML 100 ML IV (06:29)
[2020-01-03 06:42] LABS: Phosphorous 1.6 mg/dL (2.3-3.7)
[2020-01-03 06:54] LABS: Carbon Dioxide 42 mmol/L (22-32)
--- NOTE | 2020-01-03 07:42 | PC.NURSE ---
Lab called at 0655 w/ critical value of CO2 42, I gave lab values at change of shift to Maria A Mata RN.
--- NOTE | 2020-01-03 07:57 | DI.RAD.S_ITS ---
PROCEDURE: FL BARIUM SWALLOW W SPEECH INDICATIONS: asperation risk TECHNIQUE: Examination was conducted in conjunction with speech pathology per standard protocol. In the lateral projection, filming was performed of the patient swallowing. AP projection filming may also be performed with patient swallowing. COMPARISON: None. FINDINGS: Function: The oral preparatory phase appears normal, with proper containment. The subsequent oral propulsive phase, pharyngeal phase, and esophageal phase of swallowing also appear normal with all proffered substances. There was frequent minimal laryngotracheal penetration but no aspiration. No pathologic vallecular pooling. Morphology: No cricopharyngeal bar is identified. No cervical esophageal webs. No Zenker's diverticulum. No strictures. IMPRESSION: Frequent episodes of minimal anterior penetration of the ingested food material was seen, without progression of this penetration into the upper tracheal airway. Please also refer to the dedicated speech therapy report that will be independently generated. Dictated by: Omero Higginbotham M.D. on 01/03/2020 at 14:41 Approved by: Omero Higginbotham M.D. on 01/03/2020 at 14:42
--- NOTE | 2020-01-03 08:08 | SLP.IPNOTE ---
Patient scheduled for Modified Barium Swallow Study today at 1:30pm.
[2020-01-03] MEDS: POTASSIUM CHLORIDE 60 MEQ in SODIUM CHLORIDE 0.9% 500 ML 88.333 ML IV (08:27)
[2020-01-03] MEDS: METFORMIN HCL 500 MG TABLET 1000 MG PO ×2 (08:35→17:16)
[2020-01-03] MEDS: AMLODIPINE 5 MG TABLET PO (08:36)
[2020-01-03] MEDS: ASPIRIN EC 81 MG TABLET PO (08:36)
[2020-01-03] MEDS: FINASTERIDE 5 MG TABLET PO (08:37)
[2020-01-03] MEDS: ENOXAPARIN 40 MG/0.4 ML SYRINGE SUBCUT (08:37)
[2020-01-03] MEDS: FUROSEMIDE 40 MG TABLET PO (08:54)
[2020-01-03] MEDS: PHOSPHA 250 NEUTRAL TABLET 250 MG PO ×3 (08:54→21:16)
[2020-01-03] MEDS: MAGNESIUM CHLORIDE 64 MG TABLET PO ×2 (08:55→21:16)
--- NOTE | 2020-01-03 08:56 | PM.PN.1 ---
Subjective Subjective Date Patient Seen: 01/03/20 Time Patient Seen: 08:58 Interval history: Hyponatremia. Patient examined today sitting up in his bed 1st. Initially later he was transferred to his bedside chair. Patient is resting quietly and appears in no distress. Initial old discussion was the from his perspective his is taking him home today. She is not here to confirm same. He denies any pain. Very difficult to get any information from he distress her quietly. He frequently answers my questions with ?yeah?. Apparently he is unaware where he is. Exam Vital Signs (past 8 hours): - 01/03/20 02:35 01/03/20 06:00 Temperature 97.4 F L 98.0 F Pulse Rate 85 90 Respiratory Rate 16 16 Blood Pressure 151/51 H 177/84 H Pulse Oximetry 94 90 L Oxygen Delivery Method Room Air Oxygen Flow Rate 0 Narrative Exam Narrative: Patient is examined hospital bed initially then at bedside chair. Minimally conversant does not answer questions most of the time. Does answer ?yeah? is conversant. His mental status is still unclear. He he is not sure where he is. His general exam he is lungs have decreased breath sounds but otherwise are clear. Cardiac exam regular rhythm no murmur gallop. His multiple bruises on chest on his arms. Abdominal exam benign nontender no masses. His neuro exam otherwise he has equal strength upper lower extremities. Cranial nerves 2-12 intact her intact difficult to get a good exam because of cooperation Objective Labs Result Diagrams: 12/31/19 05:25 01/03/20 06:04 Labs: Laboratory Results - last 24 hr 01/03/20 01/03/20 06:04 06:04 Sodium 129 L Potassium 3.3 L Chloride 81 L Carbon Dioxide 42 H* BUN 11 Creatinine 0.40 L Estimated GFR > 60.0 BUN/Creatinine Ratio 27.5 H Glucose 149 H Calcium 7.5 L Phosphorus 1.6 L Magnesium 1.0 L labs reviewed as above electrolyte disturbance of primarily being addressed by Dr. Scott. Barium swallow pending Assessment & Plan Assessment & Plan narrative: 1. Hyponatremia persists but has improved with current treatment. Patient receiving IV saline and Lasix for same. This may well be resulting in his other electrolyte imbalance. 2. Magnesium phosphorus being treated with oral replacement. 3. Presumably cause of hyponatremia is combination medications. Workup for hyponatremia is been negative. Unable to do a brain CT/MR because his inability to hold still. 4. Severe chronic malnutrition based on his 70% weight loss muscle mass loss 5. Discharge planning for yet to be determined after discussion with when she returns to the hospital Quality VTE Deep Vein Thrombosis/Pulmonary Embolism Present on Admission: No
[2020-01-03] MEDS: lisinopriL 20 MG TABLET PO ×2 (08:59→21:16)
[2020-01-03] MEDS: NITROGLYCERIN 0.4 MG PATCH TOP (09:00)
[2020-01-03] MEDS: INSULIN ASPART 100 UNIT/ML INSULN PEN SUBCUT ×3 (09:01→17:17)
[2020-01-03] MEDS: carvediloL 25 MG TABLET PO ×2 (09:04→21:23)
--- NOTE | 2020-01-03 10:45 | PT.IPTN ---
Current Diagnoses Hypo-osmolality and hyponatremia (12/30/19) Physical Therapy Treatment Note M2 PT-IP Current Condition Start: 01/01/20 17:24 Freq: NEEDED Status: Active Protocol: Document 01/01/20 16:20 DLM (Rec: 01/01/20 17:40 DLM [id number]) Physical Therapy Current Condition Current Condition Evaluation Date 01/01/20 Treatment Diagnosis confusion, weakness, constipation Onset Date 12/30/19 Precautions Other Precautions can not lie flat due to difficulty breathing M3 PT-IP Subjective Start: 01/01/20 17:24 Freq: NEEDED Status: Active Protocol: Document 01/03/20 10:45 DLM (Rec: 01/03/20 10:51 DLM [id number]) Subjective Physical Therapy Visit Type Type Treatment Note Visit Start Time 10:20 Visit Stop Time 10:45 Total Visit Minutes 25 Number of GAME OPERATOR Visits 0 Physical Therapy Visit Comments Patient Comments he wants to go home Therapy Pain Assessment Pain When Pain Assessed During Mobility Pain Present Pain Present Denied Pain M4 PT-IP Mobility and Gait Start: 01/01/20 17:24 Freq: NEEDED Status: Active Protocol: Document 01/03/20 10:45 DLM (Rec: 01/03/20 10:51 DLM [id number]) PT-Transfer Assessment Sit to and From Stand Sit to and from Stand Standby Assistance,Use of Upper Extremities Equipment Transfer Assistive Device Gait Belt,Front Wheeled Walker Transfers Transfer Destination Chair Transfer Technique Stand Step Pivot Transfer Ability Level of Assist Use of Upper Extremities Comments Mobility Comments pt sitting up in recliner with visiting Gait Assessment Gait Gait Assistance Required: Contact Guard Assist Distance (Feet) 250 Assistive Devices Assistive Device Gait Belt,Front Wheeled Walker Gait Deviations General Gait Pattern Flexed Trunk,Wide Based Gait Factors Limiting Gait Function Factors Limiting Gait Function Decreased Activity Tolerance, Decreased Strength Comments Gait Comments left foot drop creates mild decrease in foot clearance PT-Balance Assessment Sitting Balance and Reactions Static Sitting Balance Ability Good Dynamic Sitting Balance Ability Good Standing Balance and Reactions Static Standing Balance Ability Fair Dynamic Standing Balance Ability Fair Device Used FWW M5 PT-IP Objective Assessments Start: 01/01/20 17:24 Freq: NEEDED Status: Active Protocol: Document 01/03/20 10:45 DLM (Rec: 01/03/20 10:51 DLM [id number]) Orientation Orientation/Cognition Level of Alertness Alert Orientation Name Language Function Ability Hard of Hearing Safety Awareness Decreased Safety Awareness Memory Description Short Term Impaired Comments he recognizes his and he know he is not home, he is more alert today and keeps eyes open more often, he is talking more today but still only small amounts Strength Comments Strength Comments generalized weakness continues M6 PT-IP Treatment Start: 01/01/20 17:24 Freq: NEEDED Status: Active Protocol: Document 01/03/20 10:45 DLM (Rec: 01/03/20 10:51 DLM [id number]) Physical Therapy Treatment Education Education Provided Safety M7 PT-IP Assessment and Plan Start: 01/01/20 17:24 Freq: NEEDED Status: Active Protocol: Document 01/03/20 10:45 DLM (Rec: 01/03/20 10:51 DLM [id number]) PT Summary Assessment and Plan Summary Impairments Strength,Balance,Coordination, Cognition,Bed Mobility, Transfers,Gait,Activity Tolerance Progress Towards Goals Progressing Toward Goals Assessment Summary He shows improving functional strength and improving distances of gait. He tolerated gait in the [place] well with FWW. His is present for therapy session and feels she can manage him at home. Goals Bed Mobility Goal Standby Assistance Transfer Goal Contact Guard Assistance,Front Wheeled Walker Gait Goal Standby Assistance,Contact Guard Assistance,Front Wheel Walker Gait Distance 250 Days to Meet Goals 2 Frequency of Treatment Frequency Of Treatment Once a Day Treatment Plan Physical Therapy Treatment Plan Bed Mobility Training,Transfer Training,Gait Training, Therapeutic Exercise,Balance Retraining,Discharge Planning, Neuromuscular Re-ed Recommendations To Nursing Amount of Assist Needed 1 Person Assist Discharge Recommendations PT Discharge Recommendations Home with 07/06 Assist,Home Health
--- NOTE | 2020-01-03 10:51 | CM.DPC ---
DCP/continued: Reviewed chart. Spoke with Dr. Slater re: d/c plan. Per therapy notes SNF recommended? Although, Dr. Slater reports that spouse/Eliane will want to take him home. Dr. Slater supports plan for spouse to take him home. agreeable to HH if spouse wants. F2F signed. MBS scheduled today for 1:30pm. Asked nrs staff to notify MANAGER OF CORPORATE when spouse arrives. Met with patient and spouse at bedside. Spouse very attentive and reports that she will be taking patient home when medically stable. Patient and spouse aware that this might be later today. Spouse has been a very active caregiver/advocate for patient. She reports that they have all needed DME in the home. Spouse does not feel HH needed nor does she plan for patient to be homebound. Therefore, no HH ordered at this time. P: Anticipate home with supportive spouse when medically stable. MARLEY Floyd
--- NOTE | 2020-01-03 11:25 | PC.NURSE ---
Addendum entered by Maria A Mcgee R.N. 01/03/20 14:30: Patient had his modified barium swallow earlier and Laura Chang Speech Therapist states that he is aspirating. He has been sleepy today but does answer questions appropriately. He has not eaten much today. Took PO medications with pudding and still had some trouble with coughing. It will be better to crush his medication in a carrier. Getting up and down from bed to chair with 1 person assist and walker. He is slow to move but doing well. Original Note: Patient is alert at times but falls to sleep easily and then will not answer you. Recently had neck surgery in November and he does have a bit of swallowing difficulty when taking pills, given with sugar free pudding and this seemed to help some. Patient did clear after a bit. He has multiple wounds, bruises, and skin tears on his body. Please see under physical assessment for more information and documentation. Dressings to his coccyx area is cdi, between his bottom is also red, a good amount of barrier cream applied to area. He denies pain. Working well with PT and using a walker. Patient also wears a device and around his chest that is a bone stimulator. He does have a chest bruise present to area. in room now, will be coming to see patient and his again soon.
[2020-01-03] MEDS: FENOFIBRATE 160 MG TABLET PO (12:09)
[2020-01-03] MEDS: POTASSIUM CHLORIDE 20 MEQ/15 ML UDC PO (17:17)
--- NOTE | 2020-01-03 18:29 | PC.NURSE ---
Joan shift note: Patient up out of bed with FWW to chair for dinner, awake, alert, and oriented to self only. Tolerated dysphagia diet, no coughing or gurgling noted. Poor PO intake. Does not appreciate thickened liquids and is asking for water, however will take sips. Dressing changed to left upper inner buttock lesion, with Allevyn dressing. Pressure off loading while in bed.
--- NOTE | 2020-01-03 18:57 | ST.SWALLOW ---
Visit Care Team Role Provider Type PEDRITO Turner Emergency Provider [employer] Collection System Operator Referring Provider Specialty: Address: [address] [place] [address], [id number] Email: Jan Slater MD Attending Provider Physician Primary Care Provider Specialty: Family Practice Address: [address] [place] [address], [id number] Email: [email or web address] Kannan Scott MD Admit Provider Physician Other Providers Specialty: Family Practice Address: [address] [place] [address], [id number] Email: [email or web address] ST Modified Barium Swallow Study MARINE ENGINE DRIVER Modified Barium Swallow Study Start: 01/01/20 16:02 Freq: Status: Active Protocol: Document 01/03/20 16:32 LNK (Rec: 01/03/20 16:53 LNK [id number]) Modified Barium Swallow Study Total Time Visit Start Time 13:13 Visit Stop Time 14:00 Total Visit Minutes [address] Scott Reason for Referral Dysphagia Setting Setting Acute Care Patient Information Identification Type Name,ID Wristband Patient History Pt was admitted to ED 12/30/19 with acute moderate hyponatremia with neurological deficits. Patient with the confusion, disorientation, slurring of speech. Not wanting to eat and unable to ambulate. Patient underwent ACDF surgery last month and has had some dysphagia since then. His reports he experienced significant episodes of choking once discharged home following surgery last month. These have reportedly improved and she has worked on him not throwing his head back when he swallows, maintaining a neutral head position or trialed use of a chin tuck. She also reports he had difficulty coordinating swallowing and breathing, often with audible inhalation. Subjective Observations pt was seated in the fluoroscopy chair. Instructions and procedure were described. Pt was lethargic. Speech was slow/ dysarthric. Delayed processing observed. Pt was able to arouse and remain awake for procedure Patient Positioning Position View Lateral Imaging Lateral View Textures Administered Trials Presented Thin Liquid via Spoon,Thin Liquid via Cup,[place] Liquid via Spoon,[place] Liquid via Cup,Honey Liquid via Spoon Oral Phase Source: MBSIMP (TM) (C) Bolus Specific Scoring Grid Lip Closure WFL Tongue Control During Bolus Hold Moderate Impairment Bolus Transport/Lingual Motion Mild Impairment A/P Lingual Propulsion Delay Yes: tongue pumping noted before bolus transition Number of Seconds Delayed (seconds) 1+sec Oral Residue Mild Impairment Residue Clearing Moderate Impairment Nasal Regurgitation No Additional Oral Phase Observations Pt has natural teeth in good form. Pt was unable to follow directions for OM examination . Pt refused the cookie trial ; mastication could not be observed Pharyngeal Phase Source: MBSIMP (TM) (C) Bolus Specific Scoring Grid Delayed Initiation of Pharyngeal Swallow Yes: Premature spillage to pyriform sinises for all trials except honey thick Soft Palate Elevation WFL Tongue Base Strength/Range of Motion Moderate Impairment Residue Along the Tongue Base Yes Clearance of Residue Along Tongue Base Moderate Impairment Laryngeal Elevation Mild Impairment Anterior Hyoid Movement Severe Impairment Epiglottic Range of Motion Moderate Impairment Vallecular Residue Yes Clearance of Vallecular Residue Moderate Impairment Laryngeal Vestibular Closure Moderate Impairment Pharyngeal Stripping Wave Mild Impairment Posterior Pharyngeal Wall Residue Minimal Upper Esophageal Sphincter Opening WFL Residue in the Pyriform Sinuses Yes Clearance of Residue in the Pyriform Moderate Impairment Sinuses Pharyngoesophageal Backflow Observed No Additional Pharyngeal Phase Observations Swallow response was delayed with premature spillage to the pyriform sinuses. Tongue base contact with the posterior pharyngeal wall was incomplete with residue remaining and residue then forming in valeculla. The hyolaryngeal elevation was mildly reduced with no anterior movement of the hyoid bone. Pooling of residue was observed in the valeculla, the pyriform sinuses and on the vocal folds. Penetration into the laryngeal vestibule occurred for thin and nectar thick liquids, especially with larger bolus sizes/ consecutive swallowing. No penetration was observed with honey thick liquids. Residue within the larynx flowed to the vocal folds, resulting in a very wet vocal quality. A small pool of residue was noted at the anterior commisure of the vocal folds. This pooling would likely be aspirated with breathing; however aspiration was not directly observed. Pt's swallow was notably audible indicating poor pharyngeal control of the bolus. A/P View Clinical Impressions Findings The pt presented with moderately severe oropharyngeal dysphagia. Patient Appropriate for Therapy Yes Recommendations Diet Liquids Order Honey Diet Order Dysphagia Mechanical Medication Recommendation Crushed,Crushed in Carrier Additional Dietary Needs No Straws,1:1 Supervision,1:1 Assistance Aspiration Precautions Recommended Precautions Upright at 90 Degrees,Small Bites/Sips,Double Swallow, Lingual Sweep Treatment Plan Therapy Recommendations Inpatient Speech Therapy, Outpatient Speech Therapy Recommended Referrals ENT Consult Additional Recommended Referrals The pt's audible inhalation may indicate poor vocal fold abduction Placement Recommendation After Discharge Group Home Facility,Home with Home Health,Outpatient Therapy
--- NOTE | 2020-01-03 18:59 | SLP.IPNOTE ---
Addendum entered and electronically signed by Uri Pratt 01/03/20 19:01: Pt is at high risk for silent aspiration. He does not produce reflexive cough. See MBS report for results and recommendations. Original Note: Pt is NOT to receive any thin water by mouth until SUPERVISING PRODUCER can reevaluate in the morning. Nursing reported allowing sips of thin liquids with dinner.
[2020-01-03] MEDS: SENNOSIDES 8.6 MG TABLET 17.2 MG PO (21:16)
[2020-01-03] MEDS: ATORVASTATIN 20 MG TABLET PO (21:16)
[2020-01-04] VITALS (13 sets, daily range): BP systolic 117–166; BP diastolic 61–95; PULSE 74–93; RESP 17–22; TEMP 36.3–37; O2SAT 92–97
--- NOTE | 2020-01-04 03:56 | PC.NURSE ---
Shift note: Received pt from evening shift. Patient AxO to self only, delayed in speech, monosyllabic, or grunts in response. Patient follows limited commands and does not communicate effectively with staff. Patient does not use call light, calls out from bed. Towns patient calling out, went to assist him and only would say turn it on repeatedly but could not state what specifically he wanted on. Eventually able to learn that he wanted his lights on after asking multiple questions that resulted in one yes, otherwise he would only say turn it on in response to questions. Skin is notable for multiple bruises and documented new blood filled blister on belly, a chronic skin ulcer on right buttock and skin tear on right hand. Lung sounds with fine crackles in the bases, but patient would not take a deep breath on command. Vital signs notable for hypertension and tachycardia, patient FLACC pain score was a 3, when asked about pain, patient grunted in response. Patient being turned [id number], bed alarm on and functioning, call light in reach but patient could not demonstrate use, patient is a high fall risk at this time.
[2020-01-04 05:37] LABS: Add Manual Diff / Slide Review NO; Basophils Absolute Auto 0 /uL (0-100); Basophils Percent Auto 0.2 % (0-2); Eosinophils Absolute Auto 0 /uL (0-450); Eosinophils Percent Auto 0.3 % (2-4); Hematocrit 36.8 % (41-53); Hemoglobin 12.6 g/dL (13.5-17.5); Lymphocytes Absolute Auto 1100 /uL (1100-4500); Lymphocytes Percent Auto 11.6 % (25-40); Mean Corpuscular HGB Conc 34.1 % (30-36); Mean Corpuscular Hemoglobin 32.9 PG (26-34); Mean Corpuscular Volume 96.3 fL (80-100); Monocytes Absolute Auto 700 /uL (0-900); Monocytes Percent Auto 7.2 % (3-14); Neutrophils Absolute Auto 7700 /uL (1500-7000); Neutrophils Percent Auto 80.7 % (50-75); Platelet Count 395 X10^3/uL (150-400); Red Blood Cell Count 3.82 X10^6/uL (4.5-5.9); Red Cell Distribution Width 12.5 % (11.6-14.8); White Blood Cell Count 9.5 X10^3/uL (4.5-11.0)
[2020-01-04 05:47] LABS: Phosphorous 2.5 mg/dL (2.3-3.7)
[2020-01-04 05:48] LABS: Alanine Aminotransferase 22 IU/L (<50); Albumin 3.6 g/dL (3.5-5.0); Albumin Globulin Ratio 1.4 (1.0-2.8); Alkaline Phosphatase 54 U/L (38-126); Aspartate Aminotransferase 41 IU/L (17-59); BUN Creatinine Ratio 43.3 (6-22); Bilirubin Total 0.4 mg/dL (0.2-1.3); Blood Urea Nitrogen 13 mg/dL (9-20); Calcium 7.5 mg/dL (8.4-10.2); Chloride 85 mmol/L (98-107); Estimated Glomerular Filt Rate > 60.0 mL/min (>60); Globulin 2.5 g/dL (1.7-4.1); Glucose 165 mg/dL (80-110); HEMOLYSIS < 15 (0-50); Potassium 3.6 mmol/L (3.4-5.1); Sodium 130 mmol/L (137-145); Total Protein 6.1 g/dL (6.3-8.2)
[2020-01-04 05:54] LABS: Carbon Dioxide 38 mmol/L (22-32)
--- NOTE | 2020-01-04 08:16 | P.PN_ITS ---
Subjective Subjective Date Patient Seen: 01/04/20 Time Patient Seen: 08:16 Interval history: Patient seen and evaluated today still weak. Had swallowing evaluation yesterday. Speech therapy of a thickened his fluids as he is an aspiration risk. Talking to his primary care provider yesterday. Has had a gradual slow decline in his help over the last 6 months. Certainly not back at his baseline. Participating more in his care is able to stand up and walk. Li ttle bit slow speech. Definitely more interactive. Stating he would like to go home although I think he is too weak for that. Exam Vital Signs (past 8 hours): - 01/04/20 03:48 Temperature 97.4 F L Pulse Rate 91 H Respiratory Rate 18 Blood Pressure 148/84 H Pulse Oximetry 96 Oxygen Delivery Method Room Air Oxygen Flow Rate 0 Narrative Exam Narrative: Gen.: Alert oriented to person not place or time HEENT: Pupils equal round and reactive or mucosa is moist. Speech is somewhat slow Cardio: S1-S2 regular rate and rhythm Respiratory: Lungs are clear no wheezes or crackles Abdomen: Soft nontender Extremities: Full range of motion Skin: Mild skin breakdown irritation redness in the perineal area. Small area of skin ulcer which was present before admission to the hospital. Objective Labs Result Diagrams: 01/04/20 05:20 01/04/20 05:20 Labs: Laboratory Results - last 24 hr 01/04/20 01/04/20 01/04/20 05:20 05:20 05:20 WBC 9.5 RBC 3.82 L Hgb 12.6 L Hct 36.8 L MCV 96.3 MCH 32.9 MCHC 34.1 RDW 12.5 Plt Count 395 Neut % (Auto) 80.7 H Lymph % (Auto) 11.6 L Garrard % (Auto) 7.2 Eos % (Auto) 0.3 L Baso % (Auto) 0.2 Neut # (Auto) 7700 H Lymph # (Auto) 1100 Garrard # (Auto) 700 Eos # (Auto) 0 Baso # (Auto) 0 Sodium 130 L Potassium 3.6 Chloride 85 L Carbon Dioxide 38 H BUN 13 Creatinine 0.30 L Estimated GFR > 60.0 BUN/Creatinine Ratio 43.3 H Glucose 165 H Calcium 7.5 L Phosphorus 2.5 Magnesium 1.0 L Total Bilirubin 0.4 AST 41 ALT 22 Alkaline Phosphatase 54 Total Protein 6.1 L Albumin 3.6 Globulin 2.5 Albumin/Globulin Ratio 1.4 Assessment & Plan Assessment & Plan narrative: Acute moderate hyponatremia with neurological deficits. Patient has moved back up to almost baseline sodium. Before he came to the hospital is [id number]. Stop IV fluids. Continue with free water restriction and some Lasix today. Mental status is improved from baseline. Although I do not understand currently what is initial baseline is. But definitely improved. Continue with electrolyte monitoring. Anticipate discharge tomorrow. Acute metabolic encephalopathy due to hyponatremia. Slow gradual improvement. Acute hypokalemia. Potassium is improved with replacement. Mildly low. Continue to just past potassium replacements today. Hypomagnesemia hypophosphatemia. Also being replaced today. Cystic lesion in his buttock area. Local wound care provided. Constipation. Bowel movements do not appear to be an issue at this time. Coronary artery disease with hypertension and hyperlipidemia. He will be placed back on his medications for his heart blood pressure and cholesterol. Blood pressure is running a little bit high today. We will provide oral antihypertensive medication. BPH history. Urinating without difficulty he is incontinent to no Pan catheter placed. Mom nutrition severe. Resource drinks speech evaluation has happened. Type 2 diabetes. Patient is on metformin at home. His has normal kidney function. Continue with his metformin Accu-Cheks and blood sugar moderately in [place] . Disposition and plan. Plan to alf facility tomorrow. Continue with replacement of potassium magnesium elevation of his sodium free water restriction. Work with physical therapy occupational therapy. Speech therapy. long term care for ongoing management and a able to go home currently. Quality VTE Deep Vein Thrombosis/Pulmonary Embolism Present on Admission: No
[2020-01-04] MEDS: POTASSIUM CHLORIDE 20 MEQ/15 ML UDC PO (08:39)
[2020-01-04] MEDS: ENOXAPARIN 40 MG/0.4 ML SYRINGE SUBCUT (08:39)
[2020-01-04] MEDS: lisinopriL 20 MG TABLET PO ×2 (08:40→21:00)
[2020-01-04] MEDS: carvediloL 25 MG TABLET PO ×2 (08:41→21:03)
[2020-01-04] MEDS: AMLODIPINE 5 MG TABLET PO (08:41)
[2020-01-04] MEDS: METFORMIN HCL 500 MG TABLET 1000 MG PO ×2 (08:41→17:25)
[2020-01-04] MEDS: FUROSEMIDE 40 MG TABLET PO (08:41)
[2020-01-04] MEDS: ASPIRIN EC 81 MG TABLET PO (08:41)
[2020-01-04] MEDS: MAGNESIUM CHLORIDE 64 MG TABLET 128 MG PO ×2 (08:42→20:52)
[2020-01-04] MEDS: NITROGLYCERIN 0.4 MG PATCH TOP (08:43)
[2020-01-04] MEDS: FINASTERIDE 5 MG TABLET PO (08:44)
[2020-01-04] MEDS: INSULIN ASPART 100 UNIT/ML INSULN PEN SUBCUT ×3 (08:45→17:25)
[2020-01-04] MEDS: PHOSPHA 250 NEUTRAL TABLET 250 MG PO ×4 (08:45→20:59)
--- NOTE | 2020-01-04 11:11 | PT.IPTN ---
Current Diagnoses Hypo-osmolality and hyponatremia (12/30/19) Physical Therapy Treatment Note M2 PT-IP Current Condition Start: 01/01/20 17:24 Freq: NEEDED Status: Active Protocol: Document 01/01/20 16:20 DLM (Rec: 01/01/20 17:40 DLM [id number]) Physical Therapy Current Condition Current Condition Evaluation Date 01/01/20 Treatment Diagnosis confusion, weakness, constipation Onset Date 12/30/19 Precautions Other Precautions can not lie flat due to difficulty breathing M3 PT-IP Subjective Start: 01/01/20 17:24 Freq: NEEDED Status: Active Protocol: Document 01/04/20 11:01 AW (Rec: 01/04/20 11:11 AW [id number]) Subjective Physical Therapy Visit Type Type Treatment Note Visit Start Time 09:56 Visit Stop Time 10:14 Total Visit Minutes 18 Notes present throughout treatment and providing encouragement. Number of GENERATION MANAGER Visits 0 Physical Therapy Visit Comments Patient Comments Pt required encouragement to participate, but was ultimately willing. Therapy Pain Assessment Pain When Pain Assessed During Mobility Pain Present Pain Present Denied Pain M4 PT-IP Mobility and Gait Start: 01/01/20 17:24 Freq: NEEDED Status: Active Protocol: Document 01/04/20 11:01 AW (Rec: 01/04/20 11:11 AW [id number]) PT-Bed Mobility Assessment Sit to Supine Sit to Supine Standby Assistance,Head of Bed Elevated PT-Transfer Assessment Sit to and From Stand Sit to and from Stand Standby Assistance,Use of Upper Extremities Equipment Transfer Assistive Device Gait Belt,Front Wheeled Walker Transfers Transfer Destination Bed Transfer Ability Level of Assist Standby Assistance Comments Mobility Comments Pt sitting up in chair with visiting. He was refusing medication diluted in liquid upon PT arrival. PT was able to encourage pt to finish medicine so that he could go for a walk and return to bed as he expressed interest in. Upon finishing medication, pt was observed to cough quietly and continued to clear his throat throughout treatment. Nursing team was notified. Pt stood from the chair SBA using FWW. Following gait training, pt returned to the room and transferred to the bed SBA but required extra time for processing and sequencing. Pt was positioned in the bed with bed alarm armed for safety, needs within reach including call light, and spouse continuing to visit. Gait Assessment Gait Gait Assistance Required: Standby Assistance Distance (Feet) 250 Assistive Devices Assistive Device Gait Belt,Front Wheeled Walker Gait Deviations General Gait Pattern Flexed Trunk,Wide Based Gait Factors Limiting Gait Function Factors Limiting Gait Function Decreased Activity Tolerance, Decreased Strength Comments Gait Comments Noticeable left foot drop but pt ambulated safely with walker SBA M5 PT-IP Objective Assessments Start: 01/01/20 17:24 Freq: NEEDED Status: Active Protocol: Document 01/03/20 10:45 DLM (Rec: 01/03/20 10:51 DLM [id number]) Orientation Orientation/Cognition Level of Alertness Alert Orientation Name Language Function Ability Hard of Hearing Safety Awareness Decreased Safety Awareness Memory Description Short Term Impaired Comments he recognizes his and he know he is not home, he is more alert today and keeps eyes open more often, he is talking more today but still only small amounts Strength Comments Strength Comments generalized weakness continuest M6 PT-IP Treatment Start: 01/01/20 17:24 Freq: NEEDED Status: Active Protocol: Document 01/04/20 11:01 AW (Rec: 01/04/20 11:11 AW [id number]) Physical Therapy Treatment Education Education Provided Safety M7 PT-IP Assessment and Plan Start: 01/01/20 17:24 Freq: NEEDED Status: Active Protocol: Document 01/04/20 11:01 AW (Rec: 01/04/20 11:11 AW [id number]) PT Summary Assessment and Plan Summary Impairments Strength,Balance,Coordination, Cognition,Bed Mobility, Transfers,Gait,Activity Tolerance Progress Towards Goals Progressing Toward Goals Assessment Summary Pt's present throughout and able to provide appropriate cues and level of assist. Pt improved safety with FWW, requiring decreased assistance. Pt hopes to discharge home tomorrow. Goals Bed Mobility Goal Standby Assistance Transfer Goal Contact Guard Assistance,Front Wheeled Walker Gait Goal Standby Assistance,Contact Guard Assistance,Front Wheel Walker Gait Distance 250 Days to Meet Goals 2 Frequency of Treatment Frequency Of Treatment Once a Day Treatment Plan Physical Therapy Treatment Plan Bed Mobility Training,Transfer Training,Gait Training, Therapeutic Exercise,Balance Retraining,Discharge Planning, Neuromuscular Re-ed Recommendations To Nursing Amount of Assist Needed 1 Person Assist Discharge Recommendations PT Discharge Recommendations Home with 07/06 Assist,Home Health
[2020-01-04] MEDS: FENOFIBRATE 160 MG TABLET PO (12:31)
--- NOTE | 2020-01-04 15:13 | ST.IPDYTX ---
PACKING AND STAMPING MACHINE OPERATOR Dysphagia Treatment PACKING AND STAMPING MACHINE OPERATOR Dysphagia Treatment Start: 01/01/20 16:02 Freq: Status: Active Protocol: Document 01/04/20 13:16 TLC (Rec: 01/04/20 13:32 TLC [email or web address]) Dysphagia Treatment Session Time Visit Start Time 12:30 Visit Stop Time 13:00 Total Visit Minutes 30 Setting Assessment Location Acute Care Visit Type Note Type Treatment Note Next Note Type Next Note Type Treatment Note Patient Information Identification Type Name Subjective Observations Patient seen with lunch tray sitting up in hospital bed. present in the room. Treatment Liquids Trialed Thin Solids Trialed Puree,Dysphagia Mechanical Administration Type Dependent Feeding Oral Strategies Upright at 90 degrees,Double Swallow,Controlled Bite/Sip Size,Alternate Liquids/Solids Pharyngeal Strategies Double Swallow,Effortful Swallow,Small Bites and Sips, Alternate Liquids/Solids Treatment Activities Patient refused most trials, but did take a few bites of egg salad. Therapist instructed patient in bolus hold with effortful swallow which he completed with max verbal cues. Patient self- reported greater ease of swallowing with implementation of this strategy. Despite this, he grimaced and produced an audible swallow and was not able to verbalize why. Patient refused trials of thickened liquids or water, but agreed to try soda which his reports he drinks more frequently at home since the surgery. Head positioning remained neutral with use of straw compared to cup sips which tends to make patient extend his head back. Patient was unable to perform strong, productive cough on command. Assessment Assessment of Improvement Patient continues to be at risk for developing aspiration pneumonia due to pharyngeal impairments, altered mental status, poor respiratory strength. Trials were limited due to patient refusal; therefore, no change in diet is recommended at this time. Patient would benefit from pharyngeal strengthening exercises and training in use of compensatory strategies independently, but at this time is inconsistent with following directions. Additionally, patient is on a fluid restriction related to lab values. Recommend re- assessing patient as mentation improves, when fluid restrictions are lifted and when patient's appetite returns. Continue with patient , caregiver and nursing education. Implement safe swallowing strategies - small bites/sips, bolus hold with effortful swallow, upright posture, remain upright 20 minutes after intake. Diet Recommendations Recommendations Continue Current Diet Medication Recommendations As Tolerated Aspiration Precautions Recommended Precautions Upright at 90 Degrees, Alternate Liquids/Solids,Small Bites/Sips,Effortful Swallow, Double Swallow Treatment Plan Placement Recommendation after Discharge Home with Home Health, Outpatient Therapy Appropriate for Continued Therapy Yes Therapy Recommendations Patient will need ongoing therapy upon discharge. He is scheduled for outpatient swallow evaluation at [facility] therapy tomorrow, but this will be canceled. I recommend his re-schedule or patient receive home health speech therapy for ongoing dysphagia management. Dysphagia Goals Delano's mentation will improve in order for him to implement compensatory strategies as instructed to improve swallow safety.
--- NOTE | 2020-01-04 15:41 | CM.DPNOTE ---
DCP Cont: Reviewed chart; CM notes indicate DCP has been reviewed w/pt and spouse w/in the last 24 hrs and spouse would like to take pt home when medically cleared. Dr Scott's prog note indicates pt will DC to [facility] facility tomorrow (01.05.20) but does not indicate whether spouse Eliane has been consulted re: this plan (?) Met w/pt and his Eliane this afternoon, reviewed DCP . Explained that pt was expected to be DC from the hospital tomorrow and shared that Dr Scott suggested SNF in today's prog note. Eliane explains she has been planning for pt to return home w/her and that pt has been walking quite well here. Eliane confirms she has been present for PT sessions. Eliane asks if there any SNFs around here and explained [facility] is located in [place]. She then asked what Home health would do and this STITCHDOWNS TOE FORMER reviewed the services to include RN/PT/OT/VIDEO MACHINES MECHANIC, Eliane stated she didn't think this would be necessary. HVAC REFRIGERATION TECHNICIAN and student nurse then entered the room to change pt's brief and this STITCHDOWNS TOE FORMER asked Eliane if she would be able to change pt's briefs on her own once home? Eliane said she could. P: DC planned for home w/spouse via pov 01.05.20 STITCHDOWNS TOE FORMER available to coordinate DCP if needs arise MARLEY Mcarthur
--- NOTE | 2020-01-04 19:39 | PC.NURSE ---
Joan shift note: Patient up out of bed with FWW/gait belt to chair for dinner. Poor PO intake, ate 6 spoonfuls of mashed potatoes with gravy, no gurgling or coughing with meal. Intermittent weak cough noted, occasional throat clearing unrelated to meal. at bedside this early evening providing supportive care. Tolerated PO medications. Delayed speech, single words, mostly incomprehensible. Follows simple commands such as turning from side to side during positions changes, quinn-care and mobilizing out of bed. Generalized weakness, LE > UE. Chair/Bed alarm active, door open, visible room.
[2020-01-04] MEDS: SENNOSIDES 8.6 MG TABLET 17.2 MG PO (20:51)
[2020-01-04] MEDS: ATORVASTATIN 20 MG TABLET PO (20:51)
[2020-01-05 00:45] VITALS: BP 161/93; PULSE 86; RESP 18; TEMP 37.5; O2SAT 99
[2020-01-05 03:44] VITALS: BP 155/85; PULSE 82; RESP 18; TEMP 36.8; O2SAT 99
[2020-01-05 06:12] LABS: BUN Creatinine Ratio 47.5 (6-22); Blood Urea Nitrogen 19 mg/dL (9-20); Carbon Dioxide 37 mmol/L (22-32); Chloride 85 mmol/L (98-107); Estimated Glomerular Filt Rate > 60.0 mL/min (>60); Glucose 155 mg/dL (80-110); HEMOLYSIS < 15 (0-50); Phosphorous 2.8 mg/dL (2.3-3.7); Potassium 3.6 mmol/L (3.4-5.1); Sodium 131 mmol/L (137-145)
[2020-01-05 08:00] VITALS: BP 172/92; PULSE 91; RESP 18; TEMP 36.5; O2SAT 98
--- NOTE | 2020-01-05 08:41 | P.DS_ITS ---
History of Present Illness History of Present Illness Date Patient Seen: 01/05/20 Time Patient Seen: 08:43 Chief complaint: no bowel movement for 5 days Narrative: Hyponatremia. Patient admitted several days ago because of mental status changes felt to have a metabolic encephalopathy. He was found to have significant electrolyte imbalances specifically hyponatremia, hypokalemia, hypophosphatemia, and hypo magnesium. These electrolyte imbalances were corrected over time. Resulting in a sodium of 131 potassium 3.6 phosphorus 2.8 and magnesium was 1.0 also which was slightly low. His other issues remained stable his hypertension, diabetes, BPH,. His seen in consultation by dietitian who felt he had severe malnutrition. Patient mental status did improve during stay here but was still somewhat confused slow to respond to questions but seems to be close to back to pre- admission baseline. It was recommended the patient be discharged to a [facility] facility but patient's felt she was capable of managing at home which she has done an excellent job in the past. Patient be discharged to be followed up in 2 weeks with a with labs prior to t [facility] visit. Discharge Providers Provider Date of admission: 12/30/19 20:20 Discharge Date: 01/05/20 Primary care physician: Jan Slater MD Consults: 12/30/19 22:05 Consult to Dietitian, Adult Routine Comment: Reason For Exam: Recent C5-7 surgery. History states poor po intake 01/01/20 10:01 Consult to Physical Therapy Evaluate & Treat Comment: Physician Instructions: Evaluate and Treat Consult to Speech Therapy Evaluate & Treat Comment: Physician Instructions: Evaluate and treat Discharge provider: Jan Slater MD Summary Hospital Course Discharge Diagnosis: 1. Hyponatremia. 2. Hypokalemia. 3. Hypophosphatemia. 4. Hypo magnesium. 5. Acute metabolic encephalopathy secondary to the above electrolyte disturbances. 6. Benign cystic lesion left buttocks. 7. ASCVD stable specific coronary artery disease, hypertension, and hyperlipidemia. 8. Diabetes mellitus stable on current program. 9. BPH stable. 10. Severe malnutrition as documented by his low protein muscle wasting. To recommendations have had main patient has been maintained a poor appetite for several weeks/months and this will be a continuing challenge. Hospital Course: Patient was evaluated out intervention and felt to have a metabolic encephalopathy secondary to electrolyte disturbance. These are all treated slowly and essentially corrected. Patient was able to have single person assist when he got in out of bed. Because shots to get him to eat which he was not terribly interested. He did have a swallowing dysfunction felt secondary to his neck surgery that was felt to be temporary yet to be determined. Home health was suggested but the felt that was not necessary. Status at Discharge Cognitive/behavioral status at discharge: at baseline, confused Functional status at discharge: uses cane/walker Overall status at discharge: patient is not back to baseline Exam Vital Signs (past 8 hours): - 01/05/20 00:45 01/05/20 03:44 Temperature 99.5 F 98.2 F Pulse Rate 86 82 Respiratory Rate 18 18 Blood Pressure 161/93 H 155/85 H Pulse Oximetry 99 99 Oxygen Delivery Method Room Air Oxygen Flow Rate 0 Narrative Exam Narrative: Patient initially was lying in his bed. And then a he was assisted up sits bedside chair. He has room neurologic exam was basically stable for him to take him a fair amount of time to answer question but did appropriately so. He was clearly aware of who I was and 1 C1 my socks look like. Lungs had decreased breath sounds few crackles does not take a deep breath. Cardiac exam regular rhythm no murmur gallop. He has no edema. He has scattered bruises on his arms and chest. Cranial nerves 2-12 intact. He was moving all 4 extremities equally symmetrically Objective Labs Result Diagrams: 01/04/20 05:20 01/05/20 05:40 Labs: Laboratory Results - last 24 hr 01/05/20 05:40 Sodium 131 L Potassium 3.6 Chloride 85 L Carbon Dioxide 37 H BUN 19 Creatinine 0.40 L Estimated GFR > 60.0 BUN/Creatinine Ratio 47.5 H Glucose 155 H Calcium 8.0 L Phosphorus 2.8 Magnesium [address] done in the ER was negative Discharge Plan Discharge Plan Patient Disposition: Home Discharge comment: appt w conl 2 weeks bmp, mg level stat that morning Discharge orders & Medications Prescriptions: New potassium chloride [Klor-Con M20] 20 mEq Tablet,Er Particles/Crystals 20 meq PO DAILYCC Qty: 100 RF: 0 Slow-Mag 71.5 mg Tablet,Delayed Release (Dr/Ec) 128 mg PO BID Qty: 100 RF: 0 Continued fenofibrate nanocrystallized [Tricor] 145 MG tablet 145 mg PO QNOON Qty: 0 RF: 0 indomethacin 25 MG capsule 50 mg PO PRN PRN (Reason: Gout) Qty: 0 RF: 0 nitroglycerin [Nitrostat] 0.4 MG tablet, sublingual 0.4 mg Sublingual PRN PRN (Reason: Chest Pain) Qty: 0 RF: 0 acetaminophen [Tylenol Extra Strength] 500 MG tablet 1,000 mg PO BID Qty: 0 RF: 0 atorvastatin [Lipitor] 20 MG tablet 20 mg PO HS Qty: 90 RF: 5 amlodipine [Norvasc] 5 MG tablet 5 mg PO QDAY Qty: 90 RF: 3 blood sugar diagnostic [Accu-Chek Amy Plus test strp] Strip See Rx Instructions .ROUTE .COMPLEX Qty: 100 RF: 3 carvedilol [Coreg] 25 mg tablet 25 mg PO BID Qty: 180 RF: 3 losartan 50 mg tablet 50 mg PO BID RF: 0 fluticasone propion-salmeterol [Advair Diskus] 250-50 mcg/dose blister with device 1 inhalation Inhalation BID Qty: 60 RF: 3 metformin [Glucophage] 500 mg tablet 1,000 mg PO BID Qty: 360 RF: 3 amitriptyline 50 mg tablet 50 mg PO DAILY Qty: 90 RF: 2 loratadine [Allergy Relief (loratadine)] 10 mg tablet 10 mg PO DAILY RF: 0 aspirin 81 mg Tablet,Delayed Release (Dr/Ec) 81 mg PO DAILY RF: 0 nitroglycerin 0.4 mg/hr Patch 24 Hour 1 patch TRANSDERMAL DAILY RF: 0 finasteride 5 mg Tablet 5 mg PO BEDTIME RF: 0 Disabled Parking Permit 1 / . DIRECTED RF: 0 Discontinued hydrochlorothiazide 25 mg tablet 25 mg PO DAILY Qty: 90 RF: 5 carbamazepine [Carbatrol] 200 mg capsule, ER multiphase 12 hr 200 mg PO BID Qty: 180 RF: 5 citalopram 20 mg tablet 20 mg PO DAILY Qty: 60 RF: 5 potassium chloride 10 mEq Capsule, Extended Release 10 meq PO DAILY RF: 0 Follow up/Referrals: Jan Slater MD [Primary Care Provider] - Discharge Health Status Multidrug resistant organism: No MDRO Diet/Activity/Treatments Diet: Diet as Tolerated Visit Report/Discharge Packet Instructions: Hyponatremia-Adult Discharge Data Primary Care Provider: Jan Slater Quality VTE Deep Vein Thrombosis/Pulmonary Embolism Present on Admission: No
[2020-01-05] MEDS: INSULIN ASPART 100 UNIT/ML INSULN PEN SUBCUT ×2 (09:11→12:56)
[2020-01-05] MEDS: PHOSPHA 250 NEUTRAL TABLET 250 MG PO ×2 (09:13→12:56)
[2020-01-05 09:14] VITALS: BP 172/92; PULSE 91
[2020-01-05] MEDS: NITROGLYCERIN 0.4 MG PATCH TOP (09:14)
[2020-01-05] MEDS: FINASTERIDE 5 MG TABLET PO (09:15)
[2020-01-05] MEDS: MAGNESIUM CHLORIDE 64 MG TABLET 128 MG PO (09:15)
[2020-01-05 09:20] VITALS: BP 172/92
[2020-01-05] MEDS: FUROSEMIDE 40 MG TABLET PO (09:20)
[2020-01-05] MEDS: AMLODIPINE 5 MG TABLET PO (09:20)
[2020-01-05] MEDS: POTASSIUM CHLORIDE 20 MEQ TAB PO (09:20)
[2020-01-05] MEDS: lisinopriL 20 MG TABLET PO (09:20)
[2020-01-05] MEDS: METFORMIN HCL 500 MG TABLET 1000 MG PO (09:20)
[2020-01-05] MEDS: ENOXAPARIN 40 MG/0.4 ML SYRINGE SUBCUT (09:21)
[2020-01-05] MEDS: ASPIRIN EC 81 MG TABLET PO (09:21)
[2020-01-05 09:23] VITALS: BP 172/92
[2020-01-05] MEDS: carvediloL 25 MG TABLET PO (09:23)
--- NOTE | 2020-01-05 11:35 | PC.NURSE ---
Pt is very weak and tired. Spouse is present and was attempting to get him dressed but Pt is unable or unwilling to stand up. Pt is now reclined in his chair with chair alarm on. Spouse states she will let him rest for a bit to see if he gets a bit more energetic but she is concerned about taking him home at this point.
[2020-01-05] MEDS: FENOFIBRATE 160 MG TABLET PO (12:56)
--- NOTE | 2020-01-05 14:27 | SLP.IPNOTE ---
Patient is discharging home today. He was scheduled for an outpatient speech therapy evaluation this week, but this has been canceled due to his hospitalization. I spoke with his and recommended he get Home Health Speech therapy upon d/c home. She agreed with this stating it will be easier to have someone come into their home in the beginning since the patient has been weak and tired. Discussed with nursing and MARLEY Rosales who are in agreement.
--- NOTE | 2020-01-05 14:27 | PT.IPTN ---
Current Diagnoses Hypo-osmolality and hyponatremia (12/30/19) Physical Therapy Treatment Note M2 PT-IP Current Condition Start: 01/01/20 17:24 Freq: NEEDED Status: Active Protocol: Document 01/01/20 16:20 DLM (Rec: 01/01/20 17:40 DLM [id number]) Physical Therapy Current Condition Current Condition Evaluation Date 01/01/20 Treatment Diagnosis confusion, weakness, constipation Onset Date 12/30/19 Precautions Other Precautions can not lie flat due to difficulty breathing M3 PT-IP Subjective Start: 01/01/20 17:24 Freq: NEEDED Status: Active Protocol: Document 01/05/20 14:27 LJ (Rec: 01/05/20 14:27 LJ [id number]) Subjective Physical Therapy Visit Type Type Patient Unavailable Notes pt getting ready to d/c M4 PT-IP Mobility and Gait Start: 01/01/20 17:24 Freq: NEEDED Status: Active Protocol: Document 01/04/20 11:01 AW (Rec: 01/04/20 11:11 AW [id number]) PT-Bed Mobility Assessment Sit to Supine Sit to Supine Standby Assistance,Head of Bed Elevated PT-Transfer Assessment Sit to and From Stand Sit to and from Stand Standby Assistance,Use of Upper Extremities Equipment Transfer Assistive Device Gait Belt,Front Wheeled Walker Transfers Transfer Destination Bed Transfer Ability Level of Assist Standby Assistance Comments Mobility Comments Pt sitting up in chair with visiting. He was refusing medication diluted in liquid upon PT arrival. PT was able to encourage pt to finish medicine so that he could go for a walk and return to bed as he expressed interest in. Upon finishing medication, pt was observed to cough quietly and continued to clear his throat throughout treatment. Nursing team was notified. Pt stood from the chair SBA using FWW. Following gait training, pt returned to the room and transferred to the bed SBA but required extra time for processing and sequencing. Pt was positioned in the bed with bed alarm armed for safety, needs within reach including call light, and spouse continuing to visit. Gait Assessment Gait Gait Assistance Required: Standby Assistance Distance (Feet) 250 Assistive Devices Assistive Device Gait Belt,Front Wheeled Walker Gait Deviations General Gait Pattern Flexed Trunk,Wide Based Gait Factors Limiting Gait Function Factors Limiting Gait Function Decreased Activity Tolerance, Decreased Strength Comments Gait Comments Noticeable left foot drop but pt ambulated safely with walker SBA M5 PT-IP Objective Assessments Start: 01/01/20 17:24 Freq: NEEDED Status: Active Protocol: Document 01/03/20 10:45 DLM (Rec: 01/03/20 10:51 DLM [id number]) Orientation Orientation/Cognition Level of Alertness Alert Orientation Name Language Function Ability Hard of Hearing Safety Awareness Decreased Safety Awareness Memory Description Short Term Impaired Comments he recognizes his and he know he is not home, he is more alert today and keeps eyes open more often, he is talking more today but still only small amounts Strength Comments Strength Comments generalized weakness continuest M6 PT-IP Treatment Start: 01/01/20 17:24 Freq: NEEDED Status: Active Protocol: Document 01/04/20 11:01 AW (Rec: 01/04/20 11:11 AW [id number]) Physical Therapy Treatment Education Education Provided Safety M7 PT-IP Assessment and Plan Start: 01/01/20 17:24 Freq: NEEDED Status: Active Protocol: Document 01/04/20 11:01 AW (Rec: 01/04/20 11:11 AW [id number]) PT Summary Assessment and Plan Summary Impairments Strength,Balance,Coordination, Cognition,Bed Mobility, Transfers,Gait,Activity Tolerance Progress Towards Goals Progressing Toward Goals Assessment Summary Pt's present throughout and able to provide appropriate cues and level of assist. Pt improved safety with FWW, requiring decreased assistance. Pt hopes to discharge home tomorrow. Goals Bed Mobility Goal Standby Assistance Transfer Goal Contact Guard Assistance,Front Wheeled Walker Gait Goal Standby Assistance,Contact Guard Assistance,Front Wheel Walker Gait Distance 250 Days to Meet Goals 2 Frequency of Treatment Frequency Of Treatment Once a Day Treatment Plan Physical Therapy Treatment Plan Bed Mobility Training,Transfer Training,Gait Training, Therapeutic Exercise,Balance Retraining,Discharge Planning, Neuromuscular Re-ed Recommendations To Nursing Amount of Assist Needed 1 Person Assist Discharge Recommendations PT Discharge Recommendations Home with 07/06 Assist,Home Health
--- NOTE | 2020-01-05 14:42 | PC.NURSE ---
Addendum entered by Cecelia Cardenas R.N. 01/05/20 14:46: Spouse to take Pt home not friend. Original Note: Pt is dressed and ready for discharge home with Spouse. Was able to use bsc prior to getting dressed. Pt appears more alert and responsive at this time. Spoke with Care Management about H/H, PT.ST OT, and they are arranging that Went over d/c instructions with Spouse-discussed d/c meds, time of last dose, reviewed stroke education, and follow up. Pt and Spouse deny further questions and are ready to be taken out via w/c by IT PROFESSIONAL to pov with Friend and all belongings.
--- NOTE | 2020-01-05 14:53 | CM.DPNOTE ---
DC Note: Reviewed DCP w/ RN Kathryn and PANEL EDGE PAINTER Kaitlin; both suggest HH for patient and spouse now agreeable. Met w/pt and spouse Eliane, indeed souse states she has changed her mind and would like HH, no agnecy preference Placed call to [facility] and requested RN/PT/OT/PANEL EDGE PAINTER/NEEDLE CONTROL CHENILLER/MATERIAL CONTROL MANAGER, f/u available Wednesday. faxed clinical packet to include signed F2F from Dr Slater, HH order, therapy notes and medical notes P: DC home today, w/spouse via pov w/[facility] to follow Spoke w/Dr Slater earlier this AM, he thought Hospice might be approp. but he had not ever discussed this w/pt/spouse (?) This MATERIAL CONTROL MANAGER encouraged Dr Slater to consider Palliative Care Consult if pt were to get admitted again JW
== END 2020-01-05 15:12 | disposition home health service (06) | DRG 640 ==
LOC: ED 14:09 → AC 20:21
PROVIDERS: Admitting Provider Family Medicine; Emergency Provider Nurse Practitioner Family; PCP Family Medicine; Referring Provider Nurse Practitioner Family; Visit Provider Family Medicine
DX: E87.1 Hypo-osmolality and hyponatremia (principal); G93.41 Metabolic encephalopathy; E43 Unspecified severe protein-calorie malnutrition; E87.6 Hypokalemia; K59.00 Constipation, unspecified; I25.10 Atherosclerotic heart disease of native coronary artery without angina pectoris; I10 Essential (primary) hypertension; E78.5 Hyperlipidemia, unspecified; N40.0 Benign prostatic hyperplasia without lower urinary tract symptoms; E11.9 Type 2 diabetes mellitus without complications; M10.9 Gout, unspecified; L72.9 Follicular cyst of the skin and subcutaneous tissue, unspecified; Z68.25 Body mass index [BMI] 25.0-25.9, adult; E83.42 Hypomagnesemia; E83.39 Other disorders of phosphorus metabolism; Z95.1 Presence of aortocoronary bypass graft; Z79.84 Long term (current) use of oral hypoglycemic drugs; Z87.891 Personal history of nicotine dependence
CPT/HCPCS: 36415; 74022; 74177; 74230; 80048; 80053; 80061; 81003; 82533; 82962; 83690; 83735; 83935; 84100; 84300; 84443; 85025; 92526; 92610; 92611; 96365; 96366; 97116; 97162; 97530; 99223; 99232; 99238; 99284; J1650; J1940; J3480; Q9967